=== PATIENT | male | born 1945 | race Caucasian/White ===

== ENCOUNTER 2018-10-17 15:07 | Emergency (ER) | payer MEDICARE, OTHER, SELFPAY ==
[2018-10-17 15:09] VITALS: BP 146/98; PULSE 84; RESP 16; TEMP 36.4; O2SAT 93; BMI 29.5
[2018-10-17] MEDS: predniSONE 20 MG Tablet 60 MG PO (15:31)
[2018-10-17] MEDS: Famotidine 20 MG Tablet 40 MG PO (15:31)
[2018-10-17 15:58] VITALS: BP 130/79; PULSE 75; RESP 16; O2SAT 95
--- NOTE | 2018-10-17 16:17 | ED.VISSUMM ---
- ER Visit Summary Date of Service: 10/17/18 Chief Complaint: [Allergic reaction to yellowjacket stings] History of Present Illness: The patient is a 72 M [presents to the emergency department after being stung about an hour and a half ago. Patient states that he was working in his yard he was pulling up some weeds and came across a yellow jacket nest. Patient states he was stung repeatedly on the right ear. Patient complaining of itching and a rash that developed. He denies any difficulty breathing. Denies any lip or tongue swelling. Patient has history of hypertension. Patient states that he took 4 Benadryl tablets at home.] Physical Examination: [HEENT-PERRLA, EOMI. Cranial nerves II through XII grossly intact. TMs clear. Mucous membranes moist. No adenopathy. She has diffuse erythema and edema of the right ear. No angioedema of the lips or tongue or oropharynx. Cardiovascular-regular rate and rhythm without murmur or ectopy Lungs-clear to auscultation, chest wall stable without crepitus or subcu emphysema Abdomen-normoactive bowel sounds, soft, nontender, no rebound or rigidity, no peritoneal signs. Skin exam-patient has small urticaria involving the back and upper extremities. Extremities-intact ?4, normal range of motion, normal pulses, atraumatic] Test Results: [None indicated] Emergency Department Course and Treatment: [She was given prednisone 80 mg p.o. as well as Pepcid 40 mg p.o. Patient will be observed for several hours. After 1 hour his urticaria is mostly resolved. Patient continues to feel well.] Treatment Plan: [Will be given prednisone for 3 days. Patient also will be dispensed on EpiPen. Patient advised to return if increased difficulty breathing, lip or tongue swelling, or conditions worsen anyway.] Disposition: [Discharged home stable condition] Impression: [Allergic reaction to yellowjacket stings] This note was generated with [employer] dictation software. It may contain incorrect words, spelling, and punctuation that were not noted in review of the chart prior to signing ED Disposition - Plan for ED Patient: Referrals: Petra Echeverria MD [Primary Care Provider] -
--- NOTE | 2018-10-17 16:19 | ED.DEP ---
ED Disposition - Plan for ED Patient: Instructions: ALLERGIC REACTION, Insect (General) Prescriptions: Prednisone [Deltasone] 20 mg PO BID #6 tab Prescription Printed Referrals: Petra Echeverria MD [Primary Care Provider] - As Needed
== END 2018-10-17 17:41 | disposition home or self-care (01) ==
LOC: ED 15:35
PROVIDERS: Emergency Provider Emergency Medicine; Family Provider Internal Medicine; PCP Internal Medicine
DX: T63.441A Toxic effect of venom of bees, accidental (unintentional), initial encounter (principal); Y92.9 Unspecified place or not applicable; I10 Essential (primary) hypertension
CPT/HCPCS: 99282

== ENCOUNTER → 2020-06-01 16:25 | Outpatient (CLI) | payer MEDICARE, OTHER, SELFPAY ==
[2020-06-01 17:05] LABS: Absolute Lymphocyte Count 1.09 X10^3/uL (0.83-4.51); Absolute Neutrophil Count 6.1 X10^3/uL (2.0-7.7); Basophil# 0.03 X10^3/uL; Basophil% 0.4 % (0-1); Eosinophil# 0.15 X10^3/uL; Eosinophils% 1.8 % (0-5); Hematocrit 45.7 % (40-54); Hemoglobin 14.2 g/dL (13.0-16.5); Lymphocyte # 1.09 X10^3/ul (4.0); Lymphocyte % 13.4 % (19-41); Mean Corp Hgb Conc 31.1 g/dL (32-36); Mean Corpuscular Hgb 27.2 pg (27.0-32.0); Mean Corpuscular Volume 87.5 fL (80-94); Mean Platelet Vol. 11.3 fl (6.2-12.0); Monocyte% 8.6 % (0-10); NRBC Flagged by Analyzer 0 % (0-5); Neutrophil # 6.08 X10^3/uL (2.7-7.7); Neutrophil % 74.7 % (47-70); Platelet Count 167 K/mm3 (150-450); RBC Distribution Width CV 14.1 % (11.6-14.6); Red Blood Count 5.22 M/mm3 (4.6-6.2); White Blood Count 8.1 K/mm3 (4.4-11.0)
[2020-06-01 18:00] LABS: ALB/GLOB Ratio 0.8 RATIO (0.9-2.4); AST(SGOT) 21 U/L (15-37); Alanine Aminotransfer ALT/SGPT 35 U/L (16-61); Albumin, Serum 3.4 g/dL (3.2-5.0); Alkaline Phosphatase 83 U/L (45-117); Anion Gap 5 (5-15); BUN 16 mg/dL (7-18); BUN/Creat Ratio 15.4 RATIO (10-20); Chloride 97 mmol/L (98-107); Creatinine, Serum 1.04 mg/dL (0.70-1.30); EST Glomerular Filtration Rate 74 mL/min (>60); Est Glom Filt Rate - Afr Amer 89 mL/min (>60); Glucose 140 mg/dL (74-106); Potassium 3.6 mmol/L (3.5-5.1); Protein, Total 7.4 g/dL (6.4-8.2); Sodium Level 139 mmol/L (136-145); Thyroid Stim Hormone (TSH) 1.24 uIU/mL (0.358-3.74)
[2020-06-02 09:36] LABS: Hepatitis C Antibody Non-Reactive (Nonreactive); Vitamin D,25 Hydroxy 19.5 ng/mL
== END ==
PROVIDERS: PCP Family Medicine Geriatric Medicine; Visit Provider Family Medicine Geriatric Medicine
DX: E55.9 Vitamin D deficiency, unspecified (principal); I10 Essential (primary) hypertension; Z13.89 Encounter for screening for other disorder
CPT/HCPCS: 36415; 80053; 82306; 84443; 85025; 86803

== ENCOUNTER → 2020-06-06 07:57 | Outpatient (CLI) | payer MEDICARE, OTHER, SELFPAY ==
--- NOTE | 2020-06-06 10:53 | PFTCOMP_ITS ---
COMPLETE PULMONARY FUNCTION TEST INTERPRETATION Brief HPI: Patient is a 74 year old male, currently under the care of Dr. Forrester, who presents to [facility] for complete pulmonary function tests secondary to diagnosis of dyspnea. Respiratory therapist reports good effort and reproducible results. Interpretation: Forced expiration spirometry shows a moderate large airways obstructive ventilatory defect with an FEV1 of 63% predicted. There is a significant bronchodilator response in FVC and FEV1 by strict ATS criteria. Spirograms are of good quality and plateau slowly, indicating slowly emptying areas of the lungs. The respiratory flow volume loop shows decreased expiratory flow rates at all lung volumes consistent with airway obstruction. Lung volumes by body plethysmography show an elevated total lung capacity at 8.18 L, 132% predicted. FRC and RV are elevated out of proportion. Lung volume measurements are consistent with hyperinflation and air-trapping. Diffusion capacity by carbon monoxide is preserved at 96% predicted. The airway resistance is elevated. No previous pulmonary function tests were available for review. Impression: Partial reversible moderate large airways obstructive ventilatory defect resulting in air trapping and hyperinflation, in a pattern consistent with COPD/asthma overlap syndrome.
== END ==
PROVIDERS: PCP Family Medicine Geriatric Medicine; Referring Provider Family Medicine Geriatric Medicine; Visit Provider Family Medicine Geriatric Medicine
DX: R06.02 Shortness of breath (principal)
CPT/HCPCS: 94060; 94726; 94729

== ENCOUNTER → 2020-06-08 12:47 | Outpatient (CLI) | payer MEDICARE, OTHER, SELFPAY ==
--- NOTE | 2020-06-08 12:49 | ECHOCS_ITS ---
Reason For Study: SOB Procedure This was a 2D Doppler, Color Flow transthoracic echocardiogram. The study was technically difficult. Due to COPD and body habitus. Contrast injection was performed. Exam performed in department. Left Ventricle Normal LV size. Left ventricular systolic function is normal. The estimated ejection fraction is 70 %. No evidence for diastolic dysfunction. No regional wall motion abnormalities noted. Right Ventricle Normal RV size. Normal systolic function. Atria Normal left atrium. Normal right atrium. No doppler evidence for ASD. Mitral Valve There is no mitral annular calcification. Normal mitral valve. Trivial mitral valve insufficiency. Tricuspid Valve Normal tricuspid valve. Trivial tricuspid valve insufficiency. Unable to estimate RV systolic pressure/pulmonary artery pressure due to technically difficult study. Aortic Valve The aortic valve is not well visualized. Pulmonic Valve The pulmonic valve is not well visualized. Great Vessels The aortic root is not well visualized. Pericardium/Pleural No pericardial effusion. Medication 22 gauge I.V. with prn adaptor inserted into right arm. Diluted definity 3.0ml given slow IV push to enhance endocardial definition. MMode/2D Measurements & Calculations LVIDd: 5.2 cm IVSd: 1.0 cm LAV(MOD-bp): 61.7 ml LVIDs: 3.4 cm LVPWd: 1.1 cm RVDd: 2.9 cm FS: 34.8 % LAV(MOD-bp) Indexed: 31.2 ml/m2 LAV(MOD-sp2): 60.7 ml LAV(MOD-sp4): 61.2 ml SV(MOD-sp4): 55.2 ml SV(sp4-el): 57.2 ml LVAd ap4: 29.0 cm2 EDV(MOD-sp4): 77.5 ml EDV(sp4-el): 79.9 ml LVAs ap4: 14.7 cm2 ESV(MOD-sp4): 22.3 ml ESV(sp4-el): 22.7 ml EF(MOD-sp4): 71.3 % EF(sp4-el): 71.6 % LA dimension(2D): 3.5 cm LA A4 area: 19.9 cm2 RA A4 area: 11.9 cm2 Time Measurements MV dec time: 0.20 sec Doppler Measurements & Calculations MV E max mg: 73.4 cm/sec Lat Peak E' Mg: 7.5 cm/sec Med Peak E' Mg: 7.6 cm/sec MV A max mg: 82.7 cm/sec E/E' lat: 9.8 E/E' med: 9.7 MV E/A: 0.89 Ao V2 max: 140.2 cm/sec LV V1 max: 106.4 cm/sec Ao max P.2 mmHg LV V1 max P.5 mmHg ECHO/Echo Complete W/ Contrast Interpretation Summary The study was technically difficult. Contrast injection was performed. Left ventricular systolic function is normal. The estimated ejection fraction is 70 %. Trivial mitral valve insufficiency. Trivial tricuspid valve insufficiency. Unable to estimate RV systolic pressure/pulmonary artery pressure due to techni deb difficult study. No evidence for diastolic dysfunction. Ordering Physician: Abundio Forrester Referring Physician: Abundio Forrester Chi Performed By: Yael Parnell, MECHE, RVT
== END ==
PROVIDERS: PCP Family Medicine Geriatric Medicine; Referring Provider Family Medicine Geriatric Medicine; Visit Provider Family Medicine Geriatric Medicine
DX: R06.02 Shortness of breath (principal)
CPT/HCPCS: 93306; Q9957; A4216; C8929

== ENCOUNTER → 2020-06-09 07:51 | Outpatient (CLI) | payer MEDICARE, OTHER, SELFPAY ==
--- NOTE | 2020-06-09 07:54 | CT_ITS ---
STUDY: LOW DOSE CT LUNG CANCER SCREENING REASON FOR EXAM: Male, 74 years old. TOBACCO USE. Patient smoked 1.5 pack per day for 15 years. RADIATION DOSAGE (If Supplied By Facility): CTDIvol = ( 3.18 ) mGy, DLP = ( 116.76 ) mGycm TECHNIQUE: No contrast was administered. Low dose technique was utilized (average mAS-38 and kVp 120). 1.25 mm axial source images with a slice interval of 1.25-mm were reconstructed in lung windows. 2.5 mm axial source images with a slice interval of 2.5-mm were reconstructed in lung windows. 5.0 mm axial source images with a slice interval of 5.0-mm were reconstructed in soft tissue windows. Nodule measured using lung windows on PACS and/or independent workstation with automated measurement of minimum and maximum diameter. Nodule measurement reported as average diameter rounded to the nearest whole number. Growth is defined as an increase ins size of greater than 1.5 mm. COMPARISON: None. NODULES: No suspicious nodular density is seen. Emphysema: Minimal increased markings in the medial aspect of the right middle lobe as well as the medial aspect of the lingular segment of the left upper lobe suggestive of mild scarring. Hyperinflation. Endobronchial lesion: None Aorta: Calcification of the aortic arch. Coronary arteries: Coronary artery calcification. Mediastinal nodes: Small benign appearing mediastinal lymph nodes. Other chest and abdominal findings: CT/Low Dose CT Lung Screening IMPRESSION: Lung-RADS category 2 - Continue annual screening with LDCT in 12 months. IMPORTANT NOTES FOR USE: ACR Lung-RADS Version 1.1 Assessment Categories Release Date: 2018 Category: Coded 0-4 bases on nodule(s) with highest degree of suspicion. Negative screen is defined as categories 1 and 2; a positive screen is defined as categories 3 and 4. Category 3 and 4A nodules that are unchanged on interval CT should be coded as category 2, and individuals returned to screening in 12 months. Category 4X: Category 3 or 4 nodules with additional imaging findings that increase the suspicion of lung cancer, such as spiculation, GGN that doubles in size in 1 year, enlarged lymph notes, etc. Category Modifiers: S (significant finding unrelated to lung cancer) Electronically Signed: Iván Bahena MD at 13:00 EDT , Service support ,
== END ==
PROVIDERS: PCP Family Medicine Geriatric Medicine; Referring Provider Family Medicine Geriatric Medicine; Visit Provider Family Medicine Geriatric Medicine
DX: F17.210 Nicotine dependence, cigarettes, uncomplicated (principal); Z12.2 Encounter for screening for malignant neoplasm of respiratory organs
CPT/HCPCS: 71271

== ENCOUNTER → 2020-06-20 08:00 | Outpatient (CLI) | payer MEDICARE, OTHER, SELFPAY ==
--- NOTE | 2020-06-20 08:02 | AAAS_ITS ---
Reason For Study: AAA without rupture Aorta Measurements Aorta Doppler Measurements Proximal aorta measures1.39 x 1.48cm. in cross- Peak systolic flow velocities within the proximal sectional axis. aorta measure 56.7 cm/sec. Proximal aorta measures1.42cm. in longitudinal Peak systolic flow velocities within the mid aorta axis. measure 72.7 cm/sec. Mid aorta measures1.58 x 1.9cm. in cross-sectionalPeak systolic flow velocities within the distal axis. aorta measure 72.7 cm/sec. Mid aorta measures1.69cm. in longitudinal axis. Distal aorta measures1.26 x 1.16cm. in cross- sectional axis. Distal aorta measures1.21cm. in longitudinal axis. Left Iliac Artery Left iliac artery measures .86 x .95 cm. in the cross-sectional axis. Left iliac artery measures .95 cm. in the longitudinal axis. Peak systolic velocity in the left iliac artery measures 88.0 cm/sec. Right Iliac Artery Right iliac artery measures .8 x .86 cm. in the cross-sectional axis. Right iliac artery measures .8 cm. in the longitudinal axis. Peak systolic velocity in the right iliac artery measures 123.6 cm/sec. Procedure Aorta IVC Iliac vasculature or bypass grafts [id number]. The exam was diagnostic. Exam performed in department. VL/AAA Screening Interpretation Summary The dimensions of the intra-abdominal aorta appear normal, without evidence of aneurysmal dilatation. The iliac arteries also appear normal in size bilaterally. The intr a-abdominal aorta and iliac arteries are patent, demonstrating normal, pulsatile arterial flow and no rmal peak systolic velocities. Ordering Physician: Abundio Forrester Performed By: Thomas Gurrola RVT and Student
== END ==
PROVIDERS: PCP Family Medicine Geriatric Medicine; Referring Provider Family Medicine Geriatric Medicine; Visit Provider Family Medicine Geriatric Medicine
DX: I71.4 Abdominal aortic aneurysm, without rupture (principal)
CPT/HCPCS: 76706

== ENCOUNTER → 2020-08-31 10:35 | Outpatient (CLI) | payer MEDICARE, OTHER, SELFPAY ==
[2020-08-31 12:39] LABS: Absolute Lymphocyte Count 1.63 X10^3/uL (0.83-4.51); Absolute Neutrophil Count 6.6 X10^3/uL (2.0-7.7); Basophil# 0.05 X10^3/uL; Basophil% 0.5 % (0-1); Eosinophil# 0.06 X10^3/uL; Eosinophils% 0.7 % (0-5); Hematocrit 47.4 % (40-54); Lymphocyte # 1.63 X10^3/ul (0.83-4.51); Lymphocyte % 17.8 % (19-41); Mean Corp Hgb Conc 31.6 g/dL (32-36); Mean Corpuscular Hgb 27.8 pg (27.0-32.0); Mean Corpuscular Volume 87.9 fL (80-94); Monocyte# 0.71 X10^3/uL; Monocyte% 7.8 % (0-10); NRBC Flagged by Analyzer 0 % (0-5); Neutrophil # 6.56 X10^3/uL (2.7-7.7); Neutrophil % 71.6 % (47-70); Platelet Count 175 K/mm3 (150-450); RBC Distribution Width SD 47.9 fl (35.1-43.9); Red Blood Count 5.39 M/mm3 (4.6-6.2); White Blood Count 9.2 K/mm3 (4.4-11.0)
[2020-08-31 13:09] LABS: ALB/GLOB Ratio 0.9 RATIO (0.9-2.4); AST(SGOT) 18 U/L (15-37); Alanine Aminotransfer ALT/SGPT 28 U/L (16-61); Albumin, Serum 3.5 g/dL (3.2-5.0); Alkaline Phosphatase 92 U/L (45-117); Anion Gap 6 (5-15); BUN 19 mg/dL (7-18); BUN/Creat Ratio 15.8 RATIO (10-20); Calcium,Total 9.4 mg/dL (8.5-10.1); Chloride 100 mmol/L (98-107); EST Glomerular Filtration Rate 63 mL/min (>60); Est Glom Filt Rate - Afr Amer 76 mL/min (>60); Glucose 108 mg/dL (74-106); Potassium 4.6 mmol/L (3.5-5.1); Protein, Total 7.5 g/dL (6.4-8.2); Sodium Level 135 mmol/L (136-145); Thyroid Stim Hormone (TSH) 1.94 uIU/mL (0.358-3.74)
== END ==
PROVIDERS: PCP Family Medicine Geriatric Medicine; Visit Provider Family Medicine Geriatric Medicine
DX: E55.9 Vitamin D deficiency, unspecified (principal); I10 Essential (primary) hypertension
CPT/HCPCS: 36415; 80053; 82306; 84443; 85025

== ENCOUNTER 2020-10-29 03:23 | Emergency (ER) | payer MEDICARE, OTHER, SELFPAY ==
[2020-10-29] VITALS (7 sets, daily range): BP systolic 84–156; BP diastolic 50–112; PULSE 68–112; RESP 12–22; TEMP 35.8; O2SAT 87–95; BMI 33.5
--- NOTE | 2020-10-29 03:43 | CT_ITS ---
STUDY: CT BRAIN WITHOUT CONTRAST REASON FOR EXAM: Male, 75 years old. Seizure RADIATION DOSAGE (If Supplied By Facility): CTDIvol = ( 44.99 ) mGy, DLP = ( 846.73 ) mGycm TECHNIQUE: Transaxial CT imaging of the brain was performed without administration of intravenous contrast material. Individualized dose optimization techniques were used for this CT. COMPARISON: 03/26/2015 FINDINGS: Normal soft tissue structures. Normal calvarium. Normal size ventricles and extra-axial spaces for the patient''s age. Normal white matter tracts of the cerebral hemispheres. Normal basal ganglia and thalami. Normal brainstem. Normal cerebellum. There is no intracranial hemorrhage. There are no findings of an acute ischemic infarction. Bilateral ocular lens replacements. Normal visualized paranasal sinuses. CT/Brain/Head without Contrast IMPRESSION: No intracranial acute abnormal finding. Electronically Signed: Rodrigo Guevara MD at 5:11 EDT Tel , Service support ,
--- NOTE | 2020-10-29 03:43 | EKG12_ITS ---
Test Reason : CONFUSION Blood Pressure : / mmHG Vent. Rate : 087 BPM Atrial Rate : 087 BPM P-R Int : 158 ms QRS Dur : 072 ms QT Int : 354 ms P-R-T Axes : 049 011 041 degrees QTc Int : 425 ms Normal sinus rhythm Normal ECG Confirmed by WIN GUAJARDO, CHANTEL ([id number]), features editor NARAYAN BARNEY ([id number]) on 11/03/2020 9:52:23 AM Referred By: WILY Confirmed By:RACHEL WALDEN MD
--- NOTE | 2020-10-29 03:45 | EX.ED.DYSGE1 ---
HPI History of Present Illness Chief Complaint: Confusion Informant: patient, spouse/S.O. and EMS Onset/Context/Timing Onset: Today (JPTA) Context: Sudden Onset (while sleeping) Timing: Intermittent (x1) and Lasts (1 min or less) Quality: poss seizure; stiffened up very hard and shook Location: all over Current Severity: Gone Maximum Severity: Severe Worsened by: n/a Relieved by: nothing Associated Symptoms Associated Symptoms: none currently Narrative Narrative: Patient has had significant dementia for the past year, in the middle of the night while sleeping next to his , he had a possible seizure. She states she woke up to him stiffening up and shaking all over. Lasted for less than a minute, afterwards he was snoring hard and unable to be awakened at all until at some point in the ambulance when he woke up on the way here. No history of any seizures. No recent medication changes. Patient denies any symptoms, is very confused at baseline according to the , and does not want to cooperate with healthcare providers. denies any recent illness or suspicious appearing symptoms. He does have COPD and is not on oxygen at home. According to EMS providers, he was 82% on room air at home when they picked him up. [facility] Medical History (Updated 10/29/20 @ 05:[address] Ramakrishna Iraheta MD) Alzheimer's dementia COPD (chronic obstructive pulmonary disease) Hyperlipidemia Hypertension, uncontrolled Hypertensive encephalopathy Nicotine dependence Home Medications aspirin 81 mg PO DAILY@0800 03/25/15 [History Last Taken 03/25/15] epinephrine 0.3 mg IM PRN PRN 03/25/15 [History Last Taken Unknown] kglmeiqx-kil-pffn fum-folic ac 1 ea PO DAILY 03/25/15 [History Last Taken 03/26/15] pravastatin 40 mg PO DAILY 03/25/15 [History Last Taken 03/25/15] amlodipine 10 mg PO DAILY #30 tablet 03/27/15 [Rx Last Taken Unknown] carvedilol 25 mg PO BID #60 tablet 03/27/15 [Rx Last Taken Unknown] albuterol sulfate 2 puff INHALATION Q4H 10/29/20 [History Last Taken Unknown] azithromycin 250 mg PO DAILY #4 tablet 10/29/20 [Rx Last Taken Unknown] doxepin 10 mg PO DAILY 10/29/20 [History Last Taken Unknown] jcxfufasqzz-voqqmdlod-nprcmgjt [Trelegy Ellipta] 1 inh INHALATION DAILY 10/29/20 [History Last Taken Unknown] memantine 10 mg PO BID 10/29/20 [History Last Taken Unknown] prednisone 40 mg PO DAILY #8 tablet 10/29/20 [Rx Last Taken Unknown] valsartan-hydrochlorothiazide 1 tab PO DAILY 10/29/20 [History Last Taken Unknown] Allergy/AdvReac Type Severity Reaction Status Date / Time venom-honey bee Allergy Anaphylaxis Verified 10/17/18 15:08 [bee venom (honey bee)] Social History Smoking Status: Current every day smoker tobacco type: cigarettes ROS ROS ED Review of Systems ROS Unobtainable: due to mental status and other Details: uncooperative EXAM Physical Exam Const Vital Signs: 10/29/20 03:24 10/29/20 03:43 10/29/20 04:24 Temperature 96.5 F L 96.5 F L Temperature Source Temporal Temporal Pulse Rate 112 H 95 74 Respiratory Rate 20 H 21 H 12 Respiratory Pattern Blood Pressure 156/112 H Blood Pressure Mean 126 Pulse Ox 91 91 88 Oxygen Delivery Method Room Air Room Air Room Air 10/29/20 05:00 10/29/20 05:36 10/29/20 06:49 Temperature Temperature Source Pulse Rate 68 74 71 Respiratory Rate 15 18 15 Respiratory Pattern Normal Blood Pressure 84/52 L 103/63 Blood Pressure Mean 62 76 Pulse Ox 88 94 Oxygen Delivery Method Room Air Room Air Positive well nourished, well developed and obese General Appearance ED: well developed and NAD Nutritional Appearance: obese HEENT Reports moist mucous membranes normocephalic and atraumatic Eyes PERRL and EOMs intact bilaterally Neck full ROM and supple Resp normal respiratory effort and clear to auscultation bilaterally Resp Narrative: Diminished throughout, symmetrically Cardio regular rate, regular rhythm and no murmurs Rate: Negative for tachycardic GI non-tender and non-distended Auscultation: normoactive bowel sounds Palpation: soft Back/Spine no CVA tenderness General Back: other FROM Extremity normal to inspection General Extremety ED: Negative for edema, pulses abnormal or tenderness General Extremity: Negative for edema or pulses abnormal Neuro CN's II-XII intact bilaterally and no sensory deficits noted Neuro Narrative: Confused and agitated. Sitting on the side of the bed with his legs through the rail, refuses to change position, refuses to accept oxygen. Demands that soft restraints be removed and everything else from his arms. Sensorium / Orientation: awake, alert, oriented to person and other Oriented to place with regards to the fact he is in a hospital ; Negative for oriented to time Motor Exam: strength 5/5 throughout Skin no rashes or lesions noted and no wounds MDM MDM MDM Narrative Medical decision making narrative: With the at the bedside, we were able to get the patient to calm down and cooperate more, but he still refused to wear oxygen here in the hospital, and he is adamant about refusing to be admitted for his hypoxemia. His x-ray shows the possibility of a left lower lobe infiltrate that I started treating with azithromycin. He was given orally, the patient would not allow an IV to be placed, and we were trying to find a balance between caring for the patient and keeping him from getting so agitated as to injure the staff and interfere with his care. is in agreement that trying to admit him will not go well, he is a large man and has already been swinging at all of the staff trying to hurt them, and I certainly agree that admitting him will not help his agitated dementia. is willing to take him home, understanding the risks of being hypoxic, which actually is intermittent here. Oftentimes he is in the low 90s. But he does not like he had a true seizure at home, and this was likely due to hypoxemia. At one point we were able to get some blood pressures on him, they were in the high 80s with maps around 69, however now he is 120/70s. He has been breathing well. His oxygen saturations right now are 92%. I discussed with both the and Dr. Forrester, we all agree that it would probably be best to send him home with her, she is going to try to borrow an oxygen concentrator from a friend to use for the rest of the day, and the patient says he would be amenable to seeing Dr. Forrester in the office, he has an appointment now at 9 AM tomorrow on Friday. I will give him some prednisone as well, although he really is not having symptoms consistent with a major COPD exacerbation, but it may help his oxygenation. I would just write him for a 4-day extra burst starting tomorrow, in addition to the rest of the Z-Alejandro. Lab Data Attestation: I reviewed the patient's lab results. Labs: Laboratory Results - last 24 hr 10/29/20 10/29/20 04:08 04:08 WBC 13.1 H RBC 5.01 Hgb 14.4 Hct 45.4 MCV 90.6 MCH 28.7 MCHC 31.7 L RDW Std Deviation 48.3 H RDW Coeff of Mike 14.5 Plt Count 227 MPV 11.5 Immature Gran % (Auto) 2.400 H Neut % (Auto) 89.9 H Lymph % (Auto) 4.7 L Haakon % (Auto) 2.4 Eos % (Auto) 0.2 Baso % (Auto) 0.4 Absolute Neuts (auto) 11.8 H Absolute Lymphs (auto) 0.61 L Nucleated RBC % 0 Sodium 133 L Potassium 4.2 Chloride 96 L Carbon Dioxide 23.0 Anion Gap 14 BUN 14 Creatinine 1.57 H Estim Creat Clear Calc 41.33 Est GFR (MDRD) Af Amer 56 L Est GFR (MDRD) Non-Af 46 L BUN/Creatinine Ratio 8.9 L Glucose 234 H Calcium 8.7 Troponin I High Sens 57 Radiography Chest X-Ray - ED: 1 View, Read by ED Physician and Left Infiltrate Diagnostic Testing: Radiology Impression Brain CT 10/29/20 03:43 IMPRESSION: No intracranial acute abnormal finding. Electronically Signed: Rodrigo Guevara MD at 5:11 EDT Tel , Service support , Chest X-Ray 10/29/20 04:41 IMPRESSION: Left lower lung patchy opacity, pneumonia versus atelectasis. Right lower lung subsegmental atelectasis. Electronically Signed: Rodrigo Guevara MD at 5:17 EDT Tel , Service support , EKG Initial EKG: Attestation: I personally reviewed and interpreted this EKG as follows: Interpretation: Sinus Rhythm and No Acute Injury Pattern Comments: normal EKG Discharge Plan Triage Chief Complaint: Confusion ED Provider: Ramakrishna Iraheta Dx/Rx/DC Orders Clinical Impression: Hypoxemia, Pneumonia, COPD (chronic obstructive pulmonary disease), Dementia Instructions: ED Pneumonia (Adult) Prescriptions: New azithromycin [azithromycin] 250 MG tablet 250 mg PO DAILY Qty: 4 RF: 0 prednisone 20 MG tablet 40 mg PO DAILY Qty: 8 RF: 0 No Action pravastatin 40 MG tablet 40 mg PO DAILY RF: 0 aspirin 81 MG tablet,chewable 81 mg PO DAILY@0800 RF: 0 epinephrine 0.3 MG syringe 0.3 mg IM PRN PRN (Reason: Anaphylaxis) RF: 0 zxoireyx-uxj-bsuy fum-folic ac 1 EACH tablet 1 ea PO DAILY RF: 0 carvedilol 25 MG tablet 25 mg PO BID Qty: 60 RF: 0 amlodipine 10 MG tablet 10 mg PO DAILY Qty: 30 RF: 0 memantine 5 mg Tablet 10 mg PO BID RF: 0 doxepin 10 mg Capsule 10 mg PO DAILY RF: 0 valsartan-hydrochlorothiazide 320-25 mg Tablet 1 tab PO DAILY RF: 0 Trelegy Ellipta 200-62.5-25 mcg Blister With Device 1 inh INHALATION DAILY RF: 0 albuterol sulfate 90 mcg/actuation Hfa Aerosol Inhaler 2 puff INHALATION Q4H RF: 0 Primary Care Provider: Abundio Forrester Chi Referrals: Abundio Forrester Chi, MD [Primary Care Provider] - 10/30/20 9:00 am Disposition Disposition: Home, Self Care
[2020-10-29 04:28] LABS: Absolute Lymphocyte Count 0.61 X10^3/uL (0.83-4.51); Absolute Neutrophil Count 11.8 X10^3/uL (2.0-7.7); Basophil# 0.05 X10^3/uL; Basophil% 0.4 % (0-1); Eosinophil# 0.03 X10^3/uL; Eosinophils% 0.2 % (0-5); Hematocrit 45.4 % (40-54); Hemoglobin 14.4 g/dL (13.0-16.5); Lymphocyte # 0.61 X10^3/ul (0.83-4.51); Lymphocyte % 4.7 % (19-41); Mean Corp Hgb Conc 31.7 g/dL (32-36); Mean Corpuscular Hgb 28.7 pg (27.0-32.0); Mean Corpuscular Volume 90.6 fL (80-94); Mean Platelet Vol. 11.5 fl (6.2-12.0); Monocyte# 0.32 X10^3/uL; Monocyte% 2.4 % (0-10); NRBC Flagged by Analyzer 0 % (0-5); Neutrophil # 11.77 X10^3/uL (2.7-7.7); Neutrophil % 89.9 % (47-70); Platelet Count 227 K/mm3 (150-450); RBC Distribution Width CV 14.5 % (11.6-14.6); RBC Distribution Width SD 48.3 fl (35.1-43.9); Red Blood Count 5.01 M/mm3 (4.6-6.2); White Blood Count 13.1 K/mm3 (4.4-11.0)
--- NOTE | 2020-10-29 04:41 | RAD_ITS ---
STUDY: X-RAY CHEST REASON FOR EXAM: Male, 75 years old. sob TECHNIQUE: Portable, upright, AP chest radiograph COMPARISON: 03/25/2015 FINDINGS: Right lower lung streaky opacities. Left lower lung patchy opacity. There is no demonstrated pleural abnormality. Normal size heart. Normal mediastinum and caryn. Normal visualized pulmonary arteries. Normal visualized aortic arch and descending thoracic aorta. Normal visualized thoracic spine. There is degenerative osteoarthritis of the bilateral shoulders. There is no demonstrated abnormality of the visualized soft tissue structures of the upper abdomen. RAD/Chest 1 View (Portable) IMPRESSION: Left lower lung patchy opacity, pneumonia versus atelectasis. Right lower lung subsegmental atelectasis. Electronically Signed: Rodrigo Guevara MD at 5:17 EDT Tel , Service support ,
[2020-10-29 04:54] LABS: Anion Gap 14 (5-15); BUN 14 mg/dL (7-18); BUN/Creat Ratio 8.9 RATIO (10-20); Calcium,Total 8.7 mg/dL (8.5-10.1); Chloride 96 mmol/L (98-107); Creatinine, Serum 1.57 mg/dL (0.70-1.30); EST Glomerular Filtration Rate 46 mL/min (>60); Est Glom Filt Rate - Afr Amer 56 mL/min (>60); Estimated Creatinine Clearance 41.33 ml/min; Glucose 234 mg/dL (74-106); Potassium 4.2 mmol/L (3.5-5.1); Sodium Level 133 mmol/L (136-145); Troponin-I HS 57 pg/mL (3.0-78.0)
[2020-10-29] MEDS: Ipratropium/Albuterol Sulfate 3 ML AMPUL.NEB INHALATION (05:29)
[2020-10-29] MEDS: Azithromycin 250 MG Tablet 500 MG PO (05:42)
--- NOTE | 2020-10-29 06:22 | ED.RN ---
PT REFUSING TO WEAR OXYGEN. PT REFUSING STRAIGHT CATH FOR URINE SAMPLE. PT REPORTS HE IS FINE & WANTS TO GO HOME
[2020-10-29] MEDS: predniSONE 20 MG Tablet 40 MG PO (07:30)
== END 2020-10-29 07:34 | disposition home or self-care (01) ==
PROVIDERS: Emergency Provider Emergency Medicine; PCP Family Medicine Geriatric Medicine
DX: R09.02 Hypoxemia (principal); J18.9 Pneumonia, unspecified organism; J44.0 Chronic obstructive pulmonary disease with (acute) lower respiratory infection; F02.80 Dementia in other diseases classified elsewhere, unspecified severity, without behavioral disturbance, psychotic disturbance, mood disturbance, and anxiety; G30.9 Alzheimer's disease, unspecified; F17.210 Nicotine dependence, cigarettes, uncomplicated; E66.9 Obesity, unspecified; E78.5 Hyperlipidemia, unspecified; I10 Essential (primary) hypertension; Z79.52 Long term (current) use of systemic steroids; Z79.82 Long term (current) use of aspirin; Z79.899 Other long term (current) drug therapy
CPT/HCPCS: 70450; 71045; 80048; 84484; 85025; 93005; 94640; 99285

== ENCOUNTER → 2020-11-20 09:26 | Outpatient (CLI) | payer MEDICARE, OTHER, SELFPAY ==
[2020-11-20 10:12] LABS: Absolute Lymphocyte Count 1.43 X10^3/uL (0.83-4.51); Absolute Neutrophil Count 6.1 X10^3/uL (2.0-7.7); Basophil# 0.04 X10^3/uL; Basophil% 0.5 % (0-1); Eosinophil# 0.12 X10^3/uL; Eosinophils% 1.4 % (0-5); Hematocrit 43.8 % (40-54); Hemoglobin 14.3 g/dL (13.0-16.5); Lymphocyte # 1.43 X10^3/ul (0.83-4.51); Lymphocyte % 16.6 % (19-41); Mean Corp Hgb Conc 32.6 g/dL (32-36); Mean Corpuscular Hgb 29.4 pg (27.0-32.0); Mean Corpuscular Volume 90.1 fL (80-94); Mean Platelet Vol. 11.3 fl (6.2-12.0); Monocyte# 0.76 X10^3/uL; Monocyte% 8.8 % (0-10); NRBC Flagged by Analyzer 0 % (0-5); Neutrophil # 6.11 X10^3/uL (2.7-7.7); Neutrophil % 71.2 % (47-70); Platelet Count 181 K/mm3 (150-450); RBC Distribution Width CV 14.4 % (11.6-14.6); RBC Distribution Width SD 46.5 fl (35.1-43.9); Red Blood Count 4.86 M/mm3 (4.6-6.2); White Blood Count 8.6 K/mm3 (4.4-11.0)
[2020-11-20 10:45] LABS: Vitamin D,25 Hydroxy 23.6 ng/mL
[2020-11-20 10:55] LABS: ALB/GLOB Ratio 0.8 RATIO (0.9-2.4); AST(SGOT) 14 U/L (15-37); Alanine Aminotransfer ALT/SGPT 24 U/L (16-61); Albumin, Serum 3.1 g/dL (3.2-5.0); Alkaline Phosphatase 97 U/L (45-117); Anion Gap 8 (5-15); BUN 19 mg/dL (7-18); BUN/Creat Ratio 15.2 RATIO (10-20); Calcium,Total 8.7 mg/dL (8.5-10.1); Chloride 100 mmol/L (98-107); Creatinine, Serum 1.25 mg/dL (0.70-1.30); EST Glomerular Filtration Rate 60 mL/min (>60); Est Glom Filt Rate - Afr Amer 72 mL/min (>60); Globulin 3.8 g/dL (2.2-4.2); Glucose 116 mg/dL (74-106); Potassium 4.2 mmol/L (3.5-5.1); Protein, Total 6.9 g/dL (6.4-8.2); Sodium Level 136 mmol/L (136-145); Thyroid Stim Hormone (TSH) 1.19 uIU/mL (0.358-3.74)
== END ==
LOC: LAB 09:28
PROVIDERS: PCP Family Medicine Geriatric Medicine; Referring Provider Family Medicine Geriatric Medicine; Visit Provider Family Medicine Geriatric Medicine
DX: E55.9 Vitamin D deficiency, unspecified (principal); I10 Essential (primary) hypertension
CPT/HCPCS: 36415; 80053; 82306; 84443; 85025

== ENCOUNTER → 2021-01-05 11:18 | Outpatient (CLI) | payer MEDICARE, OTHER, SELFPAY ==
--- NOTE | 2021-01-05 11:34 | RAD_ITS ---
STUDY: X-RAY CHEST REASON FOR EXAM: Male, 75 years old. SOB TECHNIQUE: Frontal portable view of the chest COMPARISON: 09 June 2020 FINDINGS: Lungs are hyperinflated without focal opacities. There are coarsened bilateral basal interstitial markings related to scarring and emphysema. There is no pneumothorax, pulmonary edema or cardiomegaly. Appearance is stable since prior. RAD/Chest PA and Lateral IMPRESSION: Emphysema. No acute disease. Electronically Signed: Sebas Lovell MD at 16:58 EDT Tel , Service support ,
[2021-01-05 13:01] LABS: Absolute Lymphocyte Count 1.39 X10^3/uL (0.83-4.51); Basophil# 0.02 X10^3/uL; Basophil% 0.2 % (0-1); Eosinophil# 0.09 X10^3/uL; Eosinophils% 1.1 % (0-5); Hematocrit 47.8 % (40-54); Hemoglobin 15.5 g/dL (13.0-16.5); Lymphocyte # 1.39 X10^3/ul (0.83-4.51); Lymphocyte % 16.6 % (19-41); Mean Corp Hgb Conc 32.4 g/dL (32-36); Mean Corpuscular Hgb 28.8 pg (27.0-32.0); Mean Corpuscular Volume 88.7 fL (80-94); Mean Platelet Vol. 12.2 fl (6.2-12.0); Monocyte% 9.5 % (0-10); NRBC Flagged by Analyzer 0 % (0-5); Neutrophil % 71.6 % (47-70); Platelet Count 157 K/mm3 (150-450); RBC Distribution Width CV 13.8 % (11.6-14.6); RBC Distribution Width SD 44.4 fl (35.1-43.9); Red Blood Count 5.39 M/mm3 (4.6-6.2); White Blood Count 8.4 K/mm3 (4.4-11.0)
[2021-01-05 13:20] LABS: ALB/GLOB Ratio 0.8 RATIO (0.9-2.4); AST(SGOT) 17 U/L (15-37); Alanine Aminotransfer ALT/SGPT 26 U/L (16-61); Albumin, Serum 3.3 g/dL (3.2-5.0); Alkaline Phosphatase 111 U/L (45-117); Anion Gap 6 (5-15); BUN 13 mg/dL (7-18); BUN/Creat Ratio 11.9 RATIO (10-20); Calcium,Total 9.5 mg/dL (8.5-10.1); Chloride 98 mmol/L (98-107); Creatinine, Serum 1.09 mg/dL (0.70-1.30); EST Glomerular Filtration Rate 70 mL/min (>60); Est Glom Filt Rate - Afr Amer 85 mL/min (>60); Globulin 4.1 g/dL (2.2-4.2); Glucose 104 mg/dL (74-106); Potassium 4.3 mmol/L (3.5-5.1); Protein, Total 7.4 g/dL (6.4-8.2); Sodium Level 135 mmol/L (136-145); Thyroid Stim Hormone (TSH) 0.98 uIU/mL (0.358-3.74)
== END ==
PROVIDERS: PCP Family Medicine Geriatric Medicine; Referring Provider Family Medicine Geriatric Medicine; Visit Provider Family Medicine Geriatric Medicine
DX: R53.83 Other fatigue (principal); R06.02 Shortness of breath
CPT/HCPCS: 36415; 71046; 80053; 84443; 85025

== ENCOUNTER → 2021-02-20 10:43 | Outpatient (CLI) | payer MEDICARE, OTHER, SELFPAY ==
[2021-02-20 12:23] LABS: Absolute Lymphocyte Count 1.39 X10^3/uL (0.83-4.51); Absolute Neutrophil Count 7.2 X10^3/uL (2.0-7.7); Basophil# 0.03 X10^3/uL; Basophil% 0.3 % (0-1); Hematocrit 47.1 % (40-54); Hemoglobin 15.2 g/dL (13.0-16.5); Lymphocyte # 1.39 X10^3/ul (0.83-4.51); Lymphocyte % 14.1 % (19-41); Mean Corp Hgb Conc 32.3 g/dL (32-36); Mean Corpuscular Hgb 28.4 pg (27.0-32.0); Mean Platelet Vol. 11.6 fl (6.2-12.0); Monocyte# 1.04 X10^3/uL; Monocyte% 10.6 % (0-10); NRBC Flagged by Analyzer 0 % (0-5); Neutrophil % 73.1 % (47-70); Platelet Count 150 K/mm3 (150-450); RBC Distribution Width CV 13.9 % (11.6-14.6); RBC Distribution Width SD 44.3 fl (35.1-43.9); Red Blood Count 5.35 M/mm3 (4.6-6.2); White Blood Count 9.9 K/mm3 (4.4-11.0)
[2021-02-20 12:34] LABS: Vitamin D,25 Hydroxy 27.4 ng/mL
[2021-02-20 12:53] LABS: ALB/GLOB Ratio 0.8 RATIO (0.9-2.4); AST(SGOT) 14 U/L (15-37); Alanine Aminotransfer ALT/SGPT 24 U/L (16-61); Albumin, Serum 3.4 g/dL (3.2-5.0); Alkaline Phosphatase 122 U/L (45-117); Anion Gap 4 (5-15); BUN 12 mg/dL (7-18); BUN/Creat Ratio 11.8 RATIO (10-20); Calcium,Total 9.5 mg/dL (8.5-10.1); Chloride 100 mmol/L (98-107); Creatinine, Serum 1.02 mg/dL (0.70-1.30); EST Glomerular Filtration Rate 75 mL/min (>60); Est Glom Filt Rate - Afr Amer 91 mL/min (>60); Glucose 103 mg/dL (74-106); Potassium 4.1 mmol/L (3.5-5.1); Protein, Total 7.4 g/dL (6.4-8.2); Sodium Level 137 mmol/L (136-145); Thyroid Stim Hormone (TSH) 1.71 uIU/mL (0.358-3.74)
== END ==
PROVIDERS: PCP Family Medicine Geriatric Medicine; Visit Provider Family Medicine Geriatric Medicine
DX: E55.9 Vitamin D deficiency, unspecified (principal); I10 Essential (primary) hypertension
CPT/HCPCS: 36415; 80053; 82306; 84443; 85025

== ENCOUNTER 2021-03-02 15:12 | Emergency (ER) | payer MEDICARE, OTHER, SELFPAY ==
[2021-03-02] VITALS (7 sets, daily range): BP systolic 170–196; BP diastolic 91–101; PULSE 68–88; RESP 18–28; TEMP 36.1; O2SAT 89–97; BMI 32.8
--- NOTE | 2021-03-02 15:43 | EKG12_ITS ---
Test Reason : Blood Pressure : / mmHG Vent. Rate : 070 BPM Atrial Rate : 070 BPM P-R Int : 158 ms QRS Dur : 072 ms QT Int : 376 ms P-R-T Axes : 069 035 072 degrees QTc Int : 406 ms Normal sinus rhythm Normal ECG Confirmed by JOSE HARRIS MD ([id number]), film or videotape editor NARAYAN BARNEY ([id number]) on 03/06/2021 9:39:29 AM Referred By: MELINDA Confirmed By:JOSE HARRIS MD
--- NOTE | 2021-03-02 15:45 | EDS_ITS ---
HPI History of Present Illness Chief Complaint: Shortness of Breath Informant: patient and spouse/S.O. Onset/Context/Timing Onset: Today Context: gradual Timing: Continuous Current Severity: Mild Maximum Severity: Mild Worsened by: Exertion and Lying flat; Not Worsened By Coughing Relieved by: Oxygen Associated Symptoms Negative for cough, fever, sore throat, subjective or chills Chest Pain: Positive for None; Negative for Continuous, Intermittent, Sharp, Stabbing, Dull, Pleuritic, Pressure and Tightness Narrative Narrative: 75-year-old male history of mild dementia, COPD and asthma and hypertension. He is not on any home oxygen. Today does feel short of breath. Worse supine and with exertion. No associated chest pain. He has never had a DVT or PE. No history of CHF and no leg pain or swelling. Denies any fever or chills. No new cough. No hemoptysis. No PE or DVT risk factors. No leg pain or swelling. Patient and his both have been vaccinated against Covid. PE Risk Factors: Negative for Cancer, OCP + Smoking + > 35, Prior DVT or PE, R ecent immobilization, Recent surgery and Recent travel Prior similar symptoms: No Recent Illness/Hospitalization: No PFSH PFSH Medical History Alzheimer's dementia COPD (chronic obstructive pulmonary disease) Hyperlipidemia Hypertension, uncontrolled Hypertensive encephalopathy Nicotine dependence Home Medications aspirin 81 mg PO DAILY@0800 03/25/15 [History Last Taken 03/25/15] epinephrine 0.3 mg IM PRN PRN 03/25/15 [History Last Taken Unknown] jelvguie-fxn-htbp fum-folic ac 1 ea PO DAILY 03/25/15 [History Last Taken 03/26/15] pravastatin 40 mg PO DAILY 03/25/15 [History Last Taken 03/25/15] amlodipine 10 mg PO DAILY #30 tablet 03/27/15 [Rx Last Taken Unknown] carvedilol 25 mg PO BID #60 tablet 03/27/15 [Rx Last Taken Unknown] albuterol sulfate 2 puff INHALATION Q4H 10/29/20 [History Last Taken Unknown] azithromycin 250 mg PO DAILY #4 tablet 10/29/20 [Rx Last Taken Unknown] doxepin 10 mg PO DAILY 10/29/20 [History Last Taken Unknown] prwwbmzwmfg-ogwzxnoib-ykwifsnt [Trelegy Ellipta] 1 inh INHALATION DAILY 10/29/20 [History Last Taken Unknown] memantine 10 mg PO BID 10/29/20 [History Last Taken Unknown] prednisone 40 mg PO DAILY #8 tablet 10/29/20 [Rx Last Taken Unknown] valsartan-hydrochlorothiazide 1 tab PO DAILY 10/29/20 [History Last Taken Unknown] prednisone 40 mg PO DAILY 7 Days #14 tab 03/02/21 [Rx Last Taken Unknown] Allergy/AdvReac Type Severity Reaction Status Date / Time venom-honey bee Allergy Anaphylaxis Verified 03/02/21 15:16 [bee venom (honey bee)] Social History Smoking Status: Current every day smoker tobacco type: cigarettes ROS ROS ED ROS Narrative Shortness of breath. Review of Systems ROS Unobtainable: Denies due to encephalopathy Constitutional Constitutional ED: Denies chills or fever(s) Eyes Eyes: Denies change in vision ENT ENT ED: Denies ear pain or sore throat Cardiovascular Cardiovascular: Denies chest pain, palpitations or racing heartbeat Respiratory/Chest Respiratory/Chest: Denies cough or dyspnea Gastrointestinal Gastrointestinal: Denies abdominal pain, diarrhea, nausea or vomiting Genitourinary Genitourinary ED: Denies dysuria Musculoskeletal Musculoskeletal: Denies myalgias Integumentary Denies rash Neurologic Neurologic: Denies headache(s) Psychiatric Psychiatric: Denies depression Endocrine Endocrinology: Denies polyuria Hematologic/Lymphatic Hematologic/Lymphatic: Denies easy bruising Allergic/Immunologic Allergic/Immunologic ED: Denies urticaria EXAM Physical Exam Narrative Exam Narrative: 35-year-old male no acute distress and vital signs are stable except his pulse ox is 85 to 89% when he walked in on room air. He is normally not on oxygen. On O2 is 97% on 2 L. H EENT exam unremarkable. Neck nontender no JVD no lymphadenopathy. Lungs clear to auscultation bilaterally. Heart regular rhythm rate about 70 no murmur. Chest were nontender. Abdomen soft nontender. Moving all 4 extremities. Calves are nontender without edema nor cords. Neurologically is awake and alert with no focal motor deficits. Const Vital Signs: 03/02/21 15:12 03/02/21 15:39 03/02/21 15:41 Temperature 96.9 F L Temperature Source Temporal Pulse Rate 76 68 Respiratory Rate 28 H 18 Respiratory Effort Normal Respiratory Pattern Blood Pressure 196/91 H 170/101 H Blood Pressure Mean 126 124 Pulse Ox 89 97 Oxygen Delivery Method Room Air Nasal Cannula Nasal Cannula Oxygen Flow Rate (L/min) 2 2 03/02/21 15:55 03/02/21 16:10 Temperature Temperature Source Pulse Rate 88 Respiratory Rate 20 H Respiratory Effort Respiratory Pattern Normal Blood Pressure Blood Pressure Mean Pulse Ox 97 Oxygen Delivery Method Nasal Cannula Oxygen Flow Rate (L/min) 2 Positive well nourished, well developed and obese; Negative for cachectic, contractures or unkempt General Appearance ED: well developed and NAD; Negative for unkempt, cachectic, contractures or pallor Nutritional Appearance: obese; Negative for cachectic HEENT Reports moist mucous membranes atraumatic; Negative for trauma or tenderness Eyes PERRL and EOMs intact bilaterally Neck no lymphadenopathy, supple, no meningeal signs and no JVD General: Negative for tenderness Resp normal respiratory effort and clear to auscultation bilaterally Auscultation: Negative for rales, rhonchi or wheezes Cardio regular rate, regular rhythm, S1 normal heart sound, S2 normal heart sound and no murmurs GI non-tender, non-distended and no masses Auscultation: normoactive bowel sounds Palpation: soft; Negative for tender, guarding or rebound tenderness present Back/Spine no CVA tenderness and normal to inspection General Back: Negative for CVA tenderness Extremity normal to inspection General Extremety ED: Negative for edema or tenderness General Extremity: Negative for edema Neuro oriented x3 Sensorium / Orientation: alert, oriented to person, oriented to place and oriented to time; Negative for orientation impaired, confused, lethargic or stuporous Motor Exam: strength 5/5 throughout Psych mental status grossly normal Appearance: Negative for unkempt Mood & Affect: Negative for depressed or tearful Thought Process: normal thought process Skin no wounds and No skin turgor normal General Skin Exam: Negative for jaundice or pallor Lesions: no lesions Rashes: no rashes MDM MDM MDM Narrative Medical decision making narrative: 75-year-old male with shortness of breath. Exam is benign. He has never had a DVT or PE. He has no risk factors for it. He does have COPD but he is not really significantly wheezing a lot. Pneumonia is a consideration but he has no cough or fever. Ingestive heart failure is a consideration but has had no physical findings consistent with that no underlying cardiac disease that he knows of. He will undergo work-up for dyspnea and hypoxia. He will also receive DuoNeb and albuterol aerosols along with IV Solu-Medrol. Repeat exam patient is doing well at 4:55 PM. Nurses are going to ambulate the patient and see how he does off oxygen. Patient did well did not have any significant desaturation be discharged home on prednisone. Lab Data Attestation: I reviewed the patient's lab results. Lab results narrative: CBC shows a white count 9. Hemoglobin 14. Platelets 184. Electrolytes unremarkable gap of 8 normal BUN creatinine. Troponin X. B [employer] 68. Labs: Laboratory Results - last 24 hr 03/02/21 03/02/21 03/02/21 16:00 16:00 16:00 WBC 9.8 RBC 5.37 Hgb 14.8 Hct 46.5 MCV 86.6 MCH 27.6 MCHC 31.8 L RDW Std Deviation 42.5 RDW Coeff of Mike 13.5 Plt Count 184 MPV 10.8 Immature Gran % (Auto) 1.500 H Neut % (Auto) 76.3 H Lymph % (Auto) 13.6 L [place] % (Auto) 7.3 Eos % (Auto) 0.9 Baso % (Auto) 0.4 Absolute Neuts (auto) 7.5 Absolute Lymphs (auto) 1.34 Nucleated RBC % 0 Sodium 140 Potassium 4.1 Chloride 101 Carbon Dioxide 31.0 Anion Gap 8 BUN 12 Creatinine 0.94 Estim Creat Clear Calc 66.86 Est GFR (MDRD) Af Amer 100 Est GFR (MDRD) Non-Af 83 BUN/Creatinine Ratio 12.8 Glucose 116 H Calcium 8.9 Troponin I High Sens 10 B-Natriuretic Peptide 68.6 Radiography Chest X-Ray - ED: 1 View, Read by ED Physician, Heart, Lungs, Mediastinum, Bony Structures, No Acute Disease and Chronic Changes Diagnostic Testing: Clinical Impression(s) from Imaging Studies Chest X-Ray 03/02/21 16:35 IMPRESSION: Mildly hyperexpanded lungs without a superimposed acute pulmonary process Electronically Signed: Jesus Betts MD at 17:08 EST , Service support , Chest x-ray shows chronic changes with platelike atelectasis in the right base. I do not see obvious pneumonia or infiltrate. No signs of Covid pneumonitis. Single view portable film interpreted by myself. Rhythm Strip Rhythm Strip: Sinus Rhythm Rate: 70 Ectopy: None EKG Initial EKG: Attestation: I personally reviewed and interpreted this EKG as follows: Interpretation: Sinus Rhythm and No Acute Injury Pattern Comments: Normal sinus rhythm rate of 70 no acute signs of SD or ischemia. Prior EKG tracings: not available for review Discharge Plan Triage Chief Complaint: Shortness of Breath ED Provider: Chance Dowell Dx/Rx/DC Orders Clinical Impression: COPD (chronic obstructive pulmonary disease), Hypoxia Instructions: ED COPD Flare Prescriptions: New prednisone 20 mg tablet 40 mg PO DAILY 7 Days Qty: 14 RF: 0 No Action pravastatin 40 MG tablet 40 mg PO DAILY RF: 0 aspirin 81 MG tablet,chewable 81 mg PO DAILY@0800 RF: 0 epinephrine 0.3 MG syringe 0.3 mg IM PRN PRN (Reason: Anaphylaxis) RF: 0 hbzcxjbo-lyi-dnlv fum-folic ac 1 EACH tablet 1 ea PO DAILY RF: 0 carvedilol 25 MG tablet 25 mg PO BID Qty: 60 RF: 0 amlodipine 10 MG tablet 10 mg PO DAILY Qty: 30 RF: 0 memantine 5 mg Tablet 10 mg PO BID RF: 0 doxepin 10 mg Capsule 10 mg PO DAILY RF: 0 valsartan-hydrochlorothiazide 320-25 mg Tablet 1 tab PO DAILY RF: 0 Trelegy Ellipta 200-62.5-25 mcg Blister With Device 1 inh INHALATION DAILY RF: 0 albuterol sulfate 90 mcg/actuation Hfa Aerosol Inhaler 2 puff INHALATION Q4H RF: 0 azithromycin [azithromycin] 250 MG tablet 250 mg PO DAILY Qty: 4 RF: 0 prednisone 20 MG tablet 40 mg PO DAILY Qty: 8 RF: 0 Primary Care Provider: Abundio Forrester Chi Referrals: Abundio Forrester Chi, MD [Primary Care Provider] - 3-5 Days Activity Restrictions/Additional Instructions: Prednisone every day. Use your inhalers as needed at home. Follow-up with your doctor to ensure you are improving. Return the emergency department if feeling worse. Disposition Disposition: Home, Self Care
[2021-03-02] MEDS: MethylPREDNISolone 125 MG/2 ML Vial IV (16:07)
[2021-03-02] MEDS: Albuterol 2.5 MG/3 ML VIAL.NEB. INHALATION ×2 (16:10)
[2021-03-02] MEDS: Ipratropium/Albuterol Sulfate 3 ML AMPUL.NEB INHALATION (16:10)
[2021-03-02 16:12] LABS: Absolute Lymphocyte Count 1.34 X10^3/uL (0.83-4.51); Absolute Neutrophil Count 7.5 X10^3/uL (2.0-7.7); Basophil# 0.04 X10^3/uL; Basophil% 0.4 % (0-1); Eosinophil# 0.09 X10^3/uL; Eosinophils% 0.9 % (0-5); Hematocrit 46.5 % (40-54); Hemoglobin 14.8 g/dL (13.0-16.5); Lymphocyte # 1.34 X10^3/ul (0.83-4.51); Lymphocyte % 13.6 % (19-41); Mean Corp Hgb Conc 31.8 g/dL (32-36); Mean Corpuscular Hgb 27.6 pg (27.0-32.0); Mean Corpuscular Volume 86.6 fL (80-94); Mean Platelet Vol. 10.8 fl (6.2-12.0); Monocyte# 0.72 X10^3/uL; Monocyte% 7.3 % (0-10); NRBC Flagged by Analyzer 0 % (0-5); Neutrophil # 7.49 X10^3/uL (2.7-7.7); Neutrophil % 76.3 % (47-70); Platelet Count 184 K/mm3 (150-450); RBC Distribution Width CV 13.5 % (11.6-14.6); RBC Distribution Width SD 42.5 fl (35.1-43.9); Red Blood Count 5.37 M/mm3 (4.6-6.2); White Blood Count 9.8 K/mm3 (4.4-11.0)
[2021-03-02 16:30] LABS: BNP,B-Type NATRIURETIC PEPTIDE 68.6 pg/mL (0-100)
[2021-03-02 16:33] LABS: Anion Gap 8 (5-15); BUN 12 mg/dL (7-18); BUN/Creat Ratio 12.8 RATIO (10-20); Calcium,Total 8.9 mg/dL (8.5-10.1); Chloride 101 mmol/L (98-107); Creatinine, Serum 0.94 mg/dL (0.70-1.30); EST Glomerular Filtration Rate 83 mL/min (>60); Est Glom Filt Rate - Afr Amer 100 mL/min (>60); Estimated Creatinine Clearance 66.86 ml/min; Glucose 116 mg/dL (74-106); Potassium 4.1 mmol/L (3.5-5.1); Sodium Level 140 mmol/L (136-145); Troponin-I HS 10 pg/mL (3.0-78.0)
--- NOTE | 2021-03-02 16:35 | RAD_ITS ---
STUDY: X-RAY CHEST REASON FOR EXAM: Male, 75 years old. Chest pain TECHNIQUE: Single AP portable view of the chest. COMPARISON: 01/05/2021 FINDINGS: EKG leads overlie the chest Lungs are mildly hyperexpanded with chronic interstitial changes, no superimposed acute pulmonary process There is no demonstrated pleural abnormality. Normal size heart. Normal mediastinum and caryn. Normal visualized pulmonary arteries. Normal visualized aortic arch and descending thoracic aorta. Normal visualized thoracic spine. Normal visualized ribs, clavicles, and shoulders. There is no demonstrated abnormality of the visualized soft tissue structures of the upper abdomen. RAD/Chest 1 View (Portable) IMPRESSION: Mildly hyperexpanded lungs without a superimposed acute pulmonary process Electronically Signed: Jesus Betts MD at 17:08 EST , Service support ,
[2021-03-02] MEDS: predniSONE 20 MG Tablet 40 MG PO (18:36)
== END 2021-03-02 18:38 | disposition home or self-care (01) ==
PROVIDERS: Emergency Provider Emergency Medicine; PCP Family Medicine Geriatric Medicine
DX: J44.9 Chronic obstructive pulmonary disease, unspecified (principal); R09.02 Hypoxemia; E78.5 Hyperlipidemia, unspecified; I10 Essential (primary) hypertension; F02.80 Dementia in other diseases classified elsewhere, unspecified severity, without behavioral disturbance, psychotic disturbance, mood disturbance, and anxiety; G30.9 Alzheimer's disease, unspecified; Z79.82 Long term (current) use of aspirin; Z79.899 Other long term (current) drug therapy; F17.210 Nicotine dependence, cigarettes, uncomplicated
CPT/HCPCS: 71045; 80048; 83880; 84484; 85025; 87426; 93005; 94640; 96374; 99285; A4216

== ENCOUNTER 2021-03-06 06:53 | Observation (INO) | payer MEDICARE, OTHER, SELFPAY ==
[2021-03-06] VITALS (16 sets, daily range): BP systolic 112–166; BP diastolic 63–102; PULSE 69–88; RESP 11–21; TEMP 36.2–37.1; O2SAT 87–95; BMI 34.4; BMI 32.6
--- NOTE | 2021-03-06 06:57 | CT_ITS ---
STUDY: CT HEAD STROKE PROTOCOL W/O CONTRAST INJECTION REASON FOR EXAM: Male, 75 years old patient with neural deficit. Acute, stroke suspected RADIATION DOSAGE (If Supplied By Facility): CTDIvol = ( 45 ) mGy, DLP = ( 813 ) mGycm TECHNIQUE: Transaxial CT imaging of the brain was performed without administration of intravenous contrast material. Multiplanar reformations are submitted for interpretation. Individualized dose optimization techniques were used for this CT. COMPARISON: CT of the head dated 10/29/2020 FINDINGS: Normal soft tissue structures. Normal calvarium. There is mild cerebral atrophy with widening of the extra-axial spaces and ventricular dilatation. There are areas of decreased attenuation within the white matter tracts of the supratentorial brain, consistent with microvascular disease changes. Normal basal ganglia and thalami. Normal brainstem. Normal cerebellum. There is no intracranial hemorrhage. There is mild atherosclerotic calcification of the intracranial arteries. There are multiple bilateral maxillary mucous retention cysts. CT/STROKE Brain/Head without Cont IMPRESSION: 1. Chronic involutional changes of the brain. 2. No CT evidence of acute intracranial hemorrhage. N.B. : The above Results were Read Back by Umm Stevens MD to Kyaw Rain;[phone], and understanding confirmed on 03/06/2021 07:13:35 (ET). Electronically Signed: Umm Stevens MD at 7:18 EST , Service support ,
--- NOTE | 2021-03-06 06:57 | RAD_ITS ---
STUDY: X-RAY CHEST REASON FOR EXAM: Male, 75 years old. Neuro deficit, acute, stroke suspected TECHNIQUE: AP COMPARISON: 03/02/2021 FINDINGS: EKG leads project over the chest. Coarsened interstitial lung markings. No airspace consolidation. There is no demonstrated pleural abnormality. Normal size heart. Normal mediastinum and caryn. Normal visualized pulmonary arteries. There is atherosclerotic calcification of the aortic arch with tortuosity. No acute bony process. There is no demonstrated abnormality of the visualized soft tissue structures of the upper abdomen. RAD/Chest 1 View IMPRESSION: 1. Nonacute portable x-ray examination of the chest. Electronically Signed: Andrew Rao MD ([place]) at 8:24 EST , Service support ,
--- NOTE | 2021-03-06 06:57 | EKG12_ITS ---
Test Reason : STROKE ALERT Blood Pressure : / mmHG Vent. Rate : 073 BPM Atrial Rate : 073 BPM P-R Int : 162 ms QRS Dur : 072 ms QT Int : 366 ms P-R-T Axes : 057 011 060 degrees QTc Int : 403 ms Normal sinus rhythm Normal ECG Confirmed by JOSE HARRIS MD ([id number]), restaurant expeditor SHANNON MARROQUIN ([id number]) on 03/08/2021 9:50:27 AM Referred By: GBAI Confirmed By:JOSE HARRIS MD
[2021-03-06 07:08] LABS: Hematocrit 46.2 % (40-54); Hemoglobin 14.5 g/dL (13.0-16.5); Mean Corp Hgb Conc 31.4 g/dL (32-36); Mean Corpuscular Hgb 27.5 pg (27.0-32.0); Mean Corpuscular Volume 87.7 fL (80-94); Mean Platelet Vol. 10.5 fl (6.2-12.0); POSITIVE COUNT YES; POSITIVE MORPHOLOGY YES; Platelet Count 178 K/mm3 (150-450); RBC Distribution Width CV 13.7 % (11.6-14.6); RBC Distribution Width SD 44.2 fl (35.1-43.9); Red Blood Count 5.27 M/mm3 (4.6-6.2); White Blood Count 14.3 K/mm3 (4.4-11.0)
[2021-03-06 07:09] LABS: Differential Indicated MANUAL DIFF
--- NOTE | 2021-03-06 07:09 | ED.RN ---
NO NEED TO CALL [facility] AT THIS TIME PATIENT SYMPTOMS HAVE RESOLVED AT THIS TIME PER DR. HERR
[2021-03-06 07:26] LABS: Anion Gap 10 (5-15); BUN 17 mg/dL (7-18); Calcium,Total 8.4 mg/dL (8.5-10.1); Chloride 98 mmol/L (98-107); Creatinine, Serum 1.06 mg/dL (0.70-1.30); EST Glomerular Filtration Rate 72 mL/min (>60); Est Glom Filt Rate - Afr Amer 87 mL/min (>60); Estimated Creatinine Clearance 59.29 ml/min; Glucose 137 mg/dL (74-106); Potassium 3.9 mmol/L (3.5-5.1); Sodium Level 137 mmol/L (136-145); Troponin-I HS 13 pg/mL (3.0-78.0)
[2021-03-06 07:26] LABS: Partial Thromboplast Time 24.2 Seconds (24.1-36.2); Prothrombin Time (Protime)PT. 12.2 SECONDS (11.7-14.9)
--- NOTE | 2021-03-06 07:31 | ED.RN ---
states that pt is at baseline, that at baseline he may or maynot be able to answer questions appropriately.
--- NOTE | 2021-03-06 07:34 | ED.VIS.STROK ---
HPI History of Present Illness Chief Complaint: Neuro S/Sx Narrative Narrative: Patient presents via EMS with slurred speech and strokelike symptoms. He was last known well at 11:30 PM. He went to bed and according to his he woke up this morning, and had slurred speech. He went to stand up and fell. He did not strike his head. There was no loss of consciousness. He was well when he went to bed last evening, but awoke this morning with slurred speech. He denies any headache or other symptoms. EMS reports questionable pronator drift, and slurred speech which was irregular according to the . Stroke team was instituted prior to arrival by EMS. Of note, states that the patient was recently in the emergency department with COPD flare and was sent home on a prednisone burst. He does have past medical history of Alzheimer's dementia. [facility] Medical History Alzheimer's dementia COPD (chronic obstructive pulmonary disease) Hyperlipidemia Hypertension, uncontrolled Hypertensive encephalopathy Nicotine dependence Home Medications aspirin 81 mg PO DAILY@0800 03/25/15 [History Last Taken 03/25/15] epinephrine 0.3 mg IM PRN PRN 03/25/15 [History Last Taken Unknown] pdbfajuw-ray-tjdx fum-folic ac 1 ea PO DAILY 03/25/15 [History Last Taken 03/26/15] carvedilol 25 mg PO BID #60 tablet 03/27/15 [Rx Last Taken Unknown] albuterol sulfate 2 puff INHALATION Q4H 10/29/20 [History Last Taken Unknown] doxepin 10 mg PO DAILY 10/29/20 [History Last Taken Unknown] dsgtwfftxve-xmithugef-nsnvasfw [Trelegy Ellipta] 1 inh INHALATION DAILY 10/29/20 [History Last Taken Unknown] memantine 10 mg PO BID 10/29/20 [History Last Taken Unknown] prednisone 40 mg PO DAILY #8 tablet 10/29/20 [Rx Last Taken Unknown] valsartan-hydrochlorothiazide 1 tab PO DAILY 10/29/20 [History Last Taken Unknown] donepezil 10 mg PO DAILY 03/06/21 [History Last Taken Unknown] varicella-zoster [id number] (PF) [Shingrix (PF)] 0.5 ml IM DAILY 03/06/21 [History Last Taken Unknown] Allergy/AdvReac Type Severity Reaction Status Date / Time venom-honey bee Allergy Anaphylaxis Verified 03/06/21 07:12 [bee venom (honey bee)] Social History Smoking Status: Former smoker ROS ROS ED ROS Narrative Constitutional: No fever, no chills. HEENT: No sore throat. No neck pain. No loss of vision. No rhinorrhea. Cardiovascular: No chest pain. No palpitations. No pedal edema. Respiratory: No cough, no shortness of breath. Abdominal: No abdominal pain. No nausea. No vomiting. Genitourinary: No dysuria. No hematuria. Musculoskeletal: No myalgias. No arthralgias. Neurologic: No headaches. No dizziness. No lightheadedness. Slurred speech this morning. Skin: No rash. No change in color. Psychiatric: No depression. No anxiety. EXAM Physical Exam Narrative Exam Narrative: Afebrile. Vital signs noted. HEENT: Normocephalic. Atraumatic. PERRL, EOMI. Neck soft and supple. No point tenderness or step off. Cardiovascular: Regular rate and rhythm. No murmurs, rubs, or gallops appreciated. Respiratory: No tachypnea. Lungs clear to auscultation bilaterally. Gastrointestinal: Abdomen soft, nontender, with normoactive bowel sounds. No rebound or guarding. Neurological: Awake. Alert. Nonfocal, nonlateralizing. NIH stroke scale is 0. Although he did not know how old he is, he knew the year of his . Additionally, while he got the month wrong, his states that he never knows the month. This is his baseline dementia. Skin: No rash. Normal color. No pallor. Musculoskeletal: No pedal edema. Full range of motion extremities. Const Vital Signs: 03/06/21 07:02 03/06/21 07:08 03/06/21 07:10 Temperature 98.7 F Temperature Source Oral Pulse Rate 71 Respiratory Rate 21 H 12 Blood Pressure 166/102 H Blood Pressure Mean 123 Pulse Ox 87 92 92 Oxygen Delivery Method Room Air Nasal Cannula Nasal Cannula Oxygen Flow Rate (L/min) 2 2 03/06/21 07:11 03/06/21 07:12 03/06/21 07:30 Temperature 98.2 F Temperature Source Oral Pulse Rate 72 73 Respiratory Rate 11 L 12 Blood Pressure 166/102 H 144/84 H Blood Pressure Mean 123 104 Pulse Ox 92 93 Oxygen Delivery Method Nasal Cannula Nasal Cannula Oxygen Flow Rate (L/min) 2 2 STROKE Vital Signs/Narrative: Vital Signs Temp Pulse Resp BP Pulse Ox 03/06/21 07:30 73 12 144/84 H 93 03/06/21 07:12 98.2 F 03/06/21 07:11 72 11 L 166/102 H 92 03/06/21 07:10 92 03/06/21 07:08 98.7 F 12 92 03/06/21 07:02 71 21 H 166/102 H 87 MDM MDM MDM Narrative Medical decision making narrative: Upon arrival to the ED on the cot, with his evaluation his speech is clear. He was sent to CT scan. His CT shows chronic involutional changes of the brain but no evidence of acute intracranial hemorrhage. He has slightly elevated white count of 14.3 but he has recently been on steroids. Hemoglobin normal at 14.5. Coagulation studies are normal. His electrolyte panel is grossly unremarkable except for glucose slightly elevated at 137 with a normal anion gap of 10. His troponin is normal at 13. EKG demonstrates normal sinus rhythm at 73 bpm without ectopy or acute ST changes. He is not a TPA candidate because of rapidly improving symptoms/resolution of his symptoms. I do not feel that his CTA of the head and neck is indicated as he has a negative stroke scale. At this point in time, I will discuss patient with the hospitalist for observation for TIA work-up. Patient was discussed with Dr. Bullard, and will be placed to the PCU for observation. He is in stable condition. Lab Data Attestation: I reviewed the patient's lab results. Labs: Laboratory Results - last 24 hr 03/06/21 03/06/21 03/06/21 06:43 06:43 07:12 WBC 14.3 H RBC 5.27 Hgb 14.5 Hct 46.2 MCV 87.7 MCH 27.5 MCHC 31.4 L RDW Std Deviation 44.2 H RDW Coeff of Mike 13.7 Plt Count 178 MPV 10.5 Neut % (Auto) Not Reportable PT 12.2 INR 1.0 APTT 24.2 Sodium 137 Potassium 3.9 Chloride 98 Carbon Dioxide 29.0 Anion Gap 10 BUN 17 Creatinine 1.06 Estim Creat Clear Calc 59.29 Est GFR (MDRD) Af Amer 87 Est GFR (MDRD) Non-Af 72 BUN/Creatinine Ratio 16.0 Glucose 137 H Calcium 8.4 L Troponin I High Sens 13 Radiography Diagnostic Testing: Clinical Impression(s) from Imaging Studies Brain CT 03/06/21 06:57 IMPRESSION: 1. Chronic involutional changes of the brain. 2. No CT evidence of acute intracranial hemorrhage. N.B. : The above Results were Read Back by Umm Stevens MD to Kyaw Rain;[phone], and understanding confirmed on 03/06/2021 07:13:35 (ET). Electronically Signed: Umm Stevens MD at 7:18 EST , Service support , ADDENDUM: 03/06/21 0725 IMPRESSION: 1. Chronic involutional changes of the brain. 2. No CT evidence of acute intracranial hemorrhage. N.B. : The above Results were Read Back by Umm Stevens MD to Kyaw Rain;[phone], and understanding confirmed on 03/06/2021 07:13:35 (ET). Electronically Signed: Umm Stevens MD at 7:18 EST , Service support , Discharge Plan Dx/Rx/DC Orders Clinical Impression: TIA (transient ischemic attack), COPD (chronic obstructive pulmonary disease) Disposition Disposition: Acute Care [facility]
--- NOTE | 2021-03-06 07:47 | HP.PCM.HOS_ITS ---
HPI - General General Date of Admission: 03/06/21 HPI Narrative CHRIS CERVANTES, is a 75 M with a PMH as outlined who presents with a complaint slurred speech. His last known well was ~ 11:30pm on the night before presentation. He awoke with slurred speech, and also fell after he stood up. Per his , he had seizure like tonic clonic movements when he fell, and this lasted a few minutes. He had associated urinary and bowel incontinence and was also drowsy and lethargic afterwards. He has no history of seizure disorder. He was recently seen in the ED for COPD exacerbation and was discharged home on a course of steroids. He denied any loss of consciousness. He didnt hit his head. His symptoms had resolved by the time he arrived. Stroke alert was called o/a of his slurred speech, but symptoms had resolved by the time he arrived. CT of the brain was negative. He is being admitted to be managed for TIA to rule out a stroke vs seizure. [facility]LY [facility] Medical History Alzheimer's dementia COPD (chronic obstructive pulmonary disease) Hyperlipidemia Hypertension, uncontrolled Hypertensive encephalopathy Nicotine dependence Home Medications aspirin 81 mg PO DAILY@0800 03/25/15 [History Last Taken 03/25/15] epinephrine 0.3 mg IM PRN PRN 03/25/15 [History Last Taken Unknown] uhcgjsiy-hwl-vzij fum-folic ac 1 ea PO DAILY 03/25/15 [History Last Taken 03/26/15] carvedilol 25 mg PO BID #60 tablet 03/27/15 [Rx Last Taken Unknown] albuterol sulfate 2 puff INHALATION Q4H 10/29/20 [History Last Taken Unknown] doxepin 10 mg PO DAILY 10/29/20 [History Last Taken Unknown] psmbvgvjomm-yaigrfusv-wuclbnrm [Trelegy Ellipta] 1 inh INHALATION DAILY 10/29/20 [History Last Taken Unknown] memantine 10 mg PO BID 10/29/20 [History Last Taken Unknown] prednisone 40 mg PO DAILY #8 tablet 10/29/20 [Rx Last Taken Unknown] valsartan-hydrochlorothiazide 1 tab PO DAILY 10/29/20 [History Last Taken Unknown] donepezil 10 mg PO DAILY 03/06/21 [History Last Taken Unknown] varicella-zoster [id number] (PF) [Shingrix (PF)] 0.5 ml IM DAILY 03/06/21 [History Last Taken Unknown] Allergy/AdvReac Type Severity Reaction Status Date / Time venom-honey bee Allergy Anaphylaxis Verified 03/06/21 07:12 [bee venom (honey bee)] Family History Mother Heart disease Social History Smoking Status: Former smoker ROS Constitutional Constitutional: Denies anorexia, chills, fatigue, malaise or weakness Eyes Eyes: Denies change in vision ENT HEENT: Denies abnormal hearing Cardiovascular Cardiovascular: Reports syncope; Denies chest pain, dyspnea on exertion, edema, lightheadedness, orthopnea, paroxysmal nocturnal dyspnea or rapid heart rate Respiratory/Chest Respiratory/Chest: Denies cough, dyspnea, productive cough, shortness of breath at rest, shortness of breath with exertion or wheezing Gastrointestinal Gastrointestinal: Denies abdominal pain, constipation, diarrhea, hematochezia, nausea or vomiting Genitourinary Genitourinary: Denies burning urination, dysuria or urinary frequency Musculoskeletal Musculoskeletal: Denies arthralgias, back pain, joint pain or joint swelling Neurologic Neurologic: Reports seizure-like activity; Denies confusion, dizziness, focal weakness, headache(s), numbness, syncope or tingling Psychiatric Psychiatric: Reports depression; Denies anxiety Vital Signs Vital Signs Vital Signs: 03/06/21 07:02 03/06/21 07:08 03/06/21 07:10 Temperature 98.7 F Temperature Source Oral Pulse Rate 71 Respiratory Rate 21 H 12 Blood Pressure 166/102 H Blood Pressure Mean 123 Pulse Ox 87 92 92 Oxygen Delivery Method Room Air Nasal Cannula Nasal Cannula Oxygen Flow Rate (L/min) 2 2 03/06/21 07:11 03/06/21 07:12 03/06/21 07:30 Temperature 98.2 F Temperature Source Oral Pulse Rate 72 73 Respiratory Rate 11 L 12 Blood Pressure 166/102 H 144/84 H Blood Pressure Mean 123 104 Pulse Ox 92 93 Oxygen Delivery Method Nasal Cannula Nasal Cannula Oxygen Flow Rate (L/min) 2 2 Weight Weight: 233 lb 7.512 oz Body Mass Index (BMI) 34.4 Physical Exam Const alert, oriented x3 and no apparent distress General Appearance: cooperative HEENT normocephalic, head/scalp atraumatic, moist oral mucous membranes and oropharynx normal Eyes PERRL, EOMs intact bilaterally and conjunctivae normal Neck no lymphadenopathy Resp normal respiratory effort, no retractions, no use of accessory muscles and clear to auscultation bilaterally Cardio regular rate, regular rhythm, S1 normal heart sound, S2 normal heart sound and no murmurs GI normal to inspection, nondistended, normoactive bowel sounds, soft to palpation and non-tender Extremity normal to inspection, full ROM and no clubbing, cyanosis or edema Peripheral Pulses: Yes pulses 2+ throughout Skin no rashes or lesions noted Neuro oriented x3, CN's II-XII intact bilaterally, moves all extremities and no focal motor deficits Neuro Narrative: NIHSS is 0 Sensorium / Orientation: awake and alert Speech: speech normal Motor Exam: strength 5/5 throughout Psych affect normal Results Lab / Micro Data Result Diagrams: 03/06/21 06:43 03/06/21 06:43 Labs: Laboratory Results - last 24 hr 03/06/21 06:43: WBC 14.3 H, RBC 5.27, Hgb 14.5, Hct 46.2, MCV 87.7, MCH 27.5, MCHC 31.4 L, RDW Std Deviation 44.2 H, RDW Coeff of Mike 13.7, Plt Count 178, MPV 10.5, Neut % (Auto) Not Reportable 03/06/21 06:43: Sodium 137, Potassium 3.9, Chloride 98, Carbon Dioxide 29.0, Anion Gap 10, BUN 17, Creatinine 1.06, Estim Creat Clear Calc 59.29, Est GFR (MDRD) Af Amer 87, Est GFR (MDRD) Non-Af 72, BUN/Creatinine Ratio 16.0, Glucose 137 H, Calcium 8.4 L, Troponin I High Sens 13 03/06/21 07:12: PT 12.2, INR 1.0, APTT 24.[address] 03/06/21 06:57 IMPRESSION: 1. Chronic involutional changes of the brain. 2. No CT evidence of acute intracranial hemorrhage. N.B. : The above Results were Read Back by Umm Stevens MD to Kyaw Rain;[phone], and understanding confirmed on 03/06/2021 07:13:35 (ET). Electronically Signed: Umm Stevens MD at 7:18 EST , Service support , ADDENDUM: 03/06/21 0725 IMPRESSION: 1. Chronic involutional changes of the brain. 2. No CT evidence of acute intracranial hemorrhage. N.B. : The above Results were Read Back by Umm Stevens MD to Kyaw Rain;[phone], and understanding confirmed on 03/06/2021 07:13:35 (ET). Electronically Signed: Umm Stevesn MD at 7:18 EST , Service support , Assessment & Plan Assessment/Plan (1) TIA (transient ischemic attack): (2) Seizure: PLAN: #TIA vs new onset seizure * admit to PCU * patient passed out and witnessed seizure like activity and slurred speech. He also had drowsiness and urinary and fecal incontinence afterwards * CT of the brain negative * MRI of the brain and MRA of hte head and neck ordered * consult neurology * seizure precautions. Give aspirin and high intensity statin * give loading dose of Keppra 1000mg x 1 * check LDL and A1C * get EEG * #COPD * breathing treatment with bronchodilators * #Alzheimer's dementia: on donepezil and memantine #Hypertension: on carvedilol, HCTZ and valsartan. DVT prophylaxis: lovenox Charges/Coding Visit Charges OBSV E&M: 24283 Initial observation care L3
--- NOTE | 2021-03-06 07:53 | NURSING ---
PCU OBS KORAM TIA
--- NOTE | 2021-03-06 07:54 | NURSING ---
STROKE ALERT CALLED [id number] PRIOR TO ARRIVAL, ETA IS 10 MIN
[2021-03-06 08:53] LABS: Lymphocyte 25 % (19-41); Monocyte 3 % (0-10); Myelocyte 5 % (0-0); Neutrophil-Band 1 % (0-5); Neutrophil-Segmented 66 % (47-70); Total Cells Counted 100 (MANUAL DIFF)
[2021-03-06 08:54] LABS: Platelet Estimate ADEQUATE (ADEQ); Red Cell Morphology NORM C+C NORMAL (NORM C&C)
[2021-03-06 08:55] LABS: Absolute Lymphocyte Count 3.58 X10^3/uL (0.83-4.51); Absolute Neutrophil Count 9.6 X10^3/uL (2.0-7.7)
--- NOTE | 2021-03-06 09:02 | PCS.PANDOC ---
PANDEMIC DOCUMENTATION INITIATED: Date: 10/23/2020 Time: 190
--- NOTE | 2021-03-06 09:44 | MRI_ITS ---
STUDY: MRA NECK WITH AND WITHOUT CONTRAST REASON FOR EXAM: Male, 75 years old. TIA, DIFFICULTY W/ Speech, memory, AMS TECHNIQUE: 3-D [id number] (TOF) imaging was performed in an 1.5 T MRI scanner. 20ML IV DOTAREM was administered for the contrast enhanced images. COMPARISON: None. FINDINGS: RIGHT CAROTID ARTERIES: Normal right common carotid artery (CCA). Normal right internal carotid bulb. Normal origin of the right internal carotid (ICA) artery without a hemodynamically significant stenosis. Normal visualized cervical portion of the right internal carotid artery. Normal origin of the right external carotid artery (ECA). LEFT CAROTID ARTERIES: Normal left common carotid artery (CCA). Normal left internal carotid bulb. Normal origin of the left internal carotid (ICA) artery without a hemodynamically significant stenosis. Normal visualized cervical portion of the left internal carotid artery. Normal origin of the left external carotid artery (ECA). VERTEBRAL ARTERIES: Segmental high-grade stenosis in the intrathoracic segment, mid cervical segment and the intradural segment of the left vertebral artery near the VB junction. No significant stenosis of the dominant right vertebral artery. Suspicious high-grade stenosis at the subclavian origins of both vertebral arteries. MRI/MRA Neck WITH and W/O Contrast IMPRESSION: 1. No significant stenosis in both carotid arteries. 2. 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 3. Suspicious high-grade stenosis in the subclavian origins of both vertebral arteries. 4. No significant stenosis in the cervical segments and intradural segment of the dominant right vertebral artery. RECOMMENDATION: CTA neck and head will be very helpful to correlate with these findings of posterior circulation stenosis. Electronically Signed: Kyaw Neff MD at 8:56 EST , Service support ,
--- NOTE | 2021-03-06 09:44 | MRI_ITS ---
STUDY: MRA OF THE HEAD WITHOUT CONTRAST REASON FOR EXAM: Male, 75 years old. TIA, DIFFICULTY W/ SPEECH,MEMORY, AMS TECHNIQUE: 3-D [id number]-[id number] (TOF) imaging was performed with MIPs. The study was performed unenhanced. COMPARISON: None. FINDINGS: This study is slightly limited due to patient motion. Normal bilateral petrous and cavernous carotid arteries. Normal anterior cerebral arteries. Nonvisualized anterior communicating artery. Normal middle cerebral arteries. Nonvisualized right posterior communicating artery. Normal left posterior communicating artery (PCOM). Distal left vertebral artery is suboptimally demonstrated. This may be due to stenosis versus patient motion. Normal basilar artery with a normal basilar bifurcation. The visualized bilateral superior cerebellar (SCA) arteries are normal. Normal bilateral P1, P2 and visualized P3 segments of the posterior cerebral arteries. There is no high-grade stenosis or large vessel occlusion. MRI/MRA Head ONLY without Contrast IMPRESSION: Limited due to patient motion. Poor visualization of the left distal vertebral artery, possibly due to motion artifact versus stenosis. Electronically Signed: Sue Christensen MD at 23:54 EST Tel , Service support ,
--- NOTE | 2021-03-06 09:46 | ECHOCS_ITS ---
Reason For Study: TIA/CVA Procedure This was a 2D Doppler, Color Flow transthoracic echocardiogram. Technically difficult study, contrast and bubble study performed. Exam performed portable in patient room. Left Ventricle Normal LV size. Left ventricular systolic function is normal. The estimated ejection fraction is 65 %. Stage 1 diastolic dysfunction. No regional wall motion abnormalities noted. Right Ventricle Normal RV size. Normal systolic function. Atria Normal left atrium. Normal right atrium. Mitral Valve Normal mitral valve. Tricuspid Valve Normal tricuspid valve. Aortic Valve Trisinus/trileaflet aortic valve. Mild focal aortic valve calcification. Pulmonic Valve The pulmonic valve is not well visualized. Great Vessels Normal aortic root. Pericardium/Pleural No pericardial effusion. Medication Diluted definity 2ml given slow IV push to enhance endocardial definition. Performed a rapid injection of agitated mix of 9 cc saline and 1cc air to assess for atrial septal defect. MMode/2D Measurements & Calculations LVIDd: 4.7 cm IVSd: 1.3 cm LA dimension: 4.0 cm LVIDs: 2.5 cm LVPWd: 1.4 cm FS: 47.7 % LAV(MOD-bp): 62.7 ml LA A4 area: 20.4 cm2 RA A4 area: 18.0 cm2 LAV(MOD-bp) Indexed: 29.1 ml/m2 LAV(MOD-sp2): 60.6 ml LAV(MOD-sp4): 59.3 ml Time Measurements MV dec time: 0.29 sec Doppler Measurements & Calculations MV E max mg: 77.0 cm/sec Lat Peak E' Mg: 6.3 cm/sec Med Peak E' Mg: 5.4 cm/sec MV A max mg: 119.2 cm/sec E/E' lat: 12.3 E/E' med: 14.4 MV E/A: 0.65 MV V2 max: 113.9 cm/sec MV P1/2t max mg: 89.9 cm/sec Ao V2 max: 137.4 cm/sec MV max P.2 mmHg MV P1/2t: 64.1 msec Ao max P.6 mmHg MV V2 mean: 58.9 cm/sec MV dec slope: 411.2 cm/sec2 MV mean P.7 mmHg MV V2 VTI: 31.1 cm MVA(P1/2t): 3.4 cm2 LV V1 max: 105.0 cm/sec PA V2 max: 133.9 cm/sec LV V1 max P.4 mmHg ECHO/Echo Complete W/ Contrast Interpretation Summary Normal LV size. Left ventricular systolic function is normal. The estimated ejection fraction is 65 %. Stage 1 diastolic dysfunction. Contrast injection was performed. Ordering Physician: Cece Bullard Referring Physician: Abundio Forrester Chi Performed By: Irving Álvarez RCS
--- NOTE | 2021-03-06 09:48 | MRI_ITS ---
HISTORY: seizure, TIA, DIFFICULTY W/ SPEECH, MEMORY, AMS. TECHNIQUE: Multiplanar and multisequence MR images of the brain were obtained without gadolinium. # of images incl. paperwork: 283. COMPARISON: CT same day. FINDINGS: BRAIN PARENCHYMA: Very mild T2 FLAIR hyperintense signal in the bilateral cerebral white matter. No abnormal focus of restricted diffusion. INTRACRANIAL HEMORRHAGE: No acute intracranial hemorrhage. CSF SPACES: Mild generalized volume loss. No midline shift or other significant mass effect. No extra-axial fluid collection. VASCULAR SYSTEM: Major intracranial flow-voids maintained. ORBITS: Bilateral lens resections. PARANASAL SINUSES AND MASTOID AIR CELLS: Maxillary sinus mucous retention cysts. MRI/Brain without Contrast IMPRESSION: No evidence for acute infarct. Chronic small vessel ischemic gliosis. at 1634 Reported and signed by: Jennifer Spears MD Electronically Signed: Jennifer Spears MD at 16:33 EST Tel , Service support ,
[2021-03-06] MEDS: Aspirin 81 MG TAB.CHEW PO (10:11)
[2021-03-06] MEDS: Doxepin Hydrochloride 10 MG Capsule PO (10:11)
[2021-03-06] MEDS: Losartan Potassium 100 MG Tablet PO (10:11)
[2021-03-06] MEDS: Multivitamins,Ther W-Minerals Tablet 1 TABLET PO (10:11)
[2021-03-06] MEDS: hydroCHLOROthiazide 25 MG Tablet PO (10:11)
[2021-03-06] MEDS: Carvedilol 25 MG Tablet PO ×2 (10:11→21:12)
[2021-03-06] MEDS: predniSONE 20 MG Tablet 40 MG PO (10:11)
[2021-03-06] MEDS: levETIRAcetam IV 1,000 MG/100 ML BAG 400 MG IV (10:40)
[2021-03-06] MEDS: Donepezil HCl 10 MG Tablet PO (10:41)
[2021-03-06] MEDS: Memantine Hydrochloride 10 MG Tablet PO ×2 (10:41→21:12)
[2021-03-06] MEDS: Fluticasone/Salmeterol 232-14 Inhaler 1 PUFF INHALATION (10:41)
[2021-03-06 10:46] LABS: Troponin-I HS 31 pg/mL (3.0-78.0)
[2021-03-06] MEDS: LORazepam 1 MG Tablet PO ×2 (13:08→17:11)
[2021-03-06 13:21] LABS: Troponin-I HS 28 pg/mL (3.0-78.0)
--- NOTE | 2021-03-06 15:44 | TELEMED_ITS ---
[facility] Telemed has confirmed receipt of a request for visit. This document confirms receipt of the order initiating the consult. To find the results of the consultation, please view the patient's reports for the scanned Telemed Consult.
--- NOTE | 2021-03-06 15:55 | CHAPLAIN ---
Type of Pastoral Visit _x__ Initial Visit ___ Follow-up Visit ___ On-call Visit ___ General Patient Visit ___ Spiritual Assessment ___ Family Conference ___ Bereavement ___ Rapid Response ___ Code Blue ___ Other (describe below) Pastoral Care Referral From ___ Patient _x__ Family ___ Nurse ___ Physician ___ Structural Mill Supervisor ___ [employer]ing Machine Operator ___ Other (describe below) Sacrament/Intervention ___ Active listening ___ Anointing ___ Christian ___ Bereavement ___ Communion ___ Pat exploration ___ ___ Life review ___ Prayer ___ Reconciliation ___ Sacrament of Sick _x__ Supportive presence ___ Wedding ___ Other (describe below) Pastoral Comments spouse is with patient and she answers most of the questions and gives explanation of this admission; pt is having tests done and he is not sure what or why of things right now
[2021-03-06 16:30] LABS: Hemoglobin A1c 5.7 % (3.8-5.6)
[2021-03-06] MEDS: Atorvastatin Calcium 80 MG Tablet PO (21:12)
[2021-03-06 23:02] LABS: Bacteria 0 SEEN /hpf (None Seen); Mucous, Urine 0 SEEN /hpf (<or=2+); Red Blood Cells-Urine 0 SEEN /hpf (0-5); Squamous Epithelial Cells - UA 0 SEEN /hpf (0-5); White Blood Cells 0 SEEN /hpf (0-5)
[2021-03-06 23:05] LABS: Color, Urine Yellow (Yellow); Glucose, Dipstick Normal (Normal); Ketone-Dipstick Negative (Negative); Leukocyte Esterase-Dipstick Negative /ul (Negative); Nitrite-Dipstick Negative (Negative); Occult Blood-Urine Negative /ul (Negative); Protein-Dipstick Negative (Negative); Specific Gravity, Urine 1.015 (1.002-1.030); Urine Bilirubin Dipstick Negative (Negative); Urine Clarity Clear (Clear); Urine Urobilinogen Normal (Normal); Urine pH 6.5 (5.0 - 8.0)
[2021-03-07 02:35] VITALS: BP 102/53; BP 103/63; BP 79/48; PULSE 79; PULSE 86; PULSE 89; RESP 18; TEMP 36.5; O2SAT 92
[2021-03-07] MEDS: 0.9% Normal Saline 1,000 ML 999 ML IV (02:55)
[2021-03-07] MEDS: 0.9% Saline Lock 10 ML Syringe IV (02:55)
[2021-03-07 02:59] VITALS: PULSE 81
[2021-03-07 04:24] VITALS: BP 151/81; PULSE 75; RESP 16; TEMP 36.6; O2SAT 93
[2021-03-07 05:57] LABS: Hematocrit 40.9 % (40-54); Hemoglobin 13.2 g/dL (13.0-16.5); Mean Corp Hgb Conc 32.3 g/dL (32-36); Mean Corpuscular Volume 86.7 fL (80-94); Mean Platelet Vol. 10.7 fl (6.2-12.0); POSITIVE COUNT YES; POSITIVE MORPHOLOGY YES; Platelet Count 148 K/mm3 (150-450); RBC Distribution Width CV 13.9 % (11.6-14.6); RBC Distribution Width SD 43.7 fl (35.1-43.9); Red Blood Count 4.72 M/mm3 (4.6-6.2); White Blood Count 11.8 K/mm3 (4.4-11.0)
[2021-03-07 06:16] LABS: Differential Indicated MANUAL DIFF
[2021-03-07 06:30] LABS: Anion Gap 6 (5-15); BUN 18 mg/dL (7-18); BUN/Creat Ratio 17.5 RATIO (10-20); Calcium,Total 8.1 mg/dL (8.5-10.1); Chloride 99 mmol/L (98-107); Cholesterol 235 mg/dL (200); Creatinine, Serum 1.03 mg/dL (0.70-1.30); EST Glomerular Filtration Rate 75 mL/min (>60); Est Glom Filt Rate - Afr Amer 90 mL/min (>60); Estimated Creatinine Clearance 61.01 ml/min; Glucose 171 mg/dL (74-106); High Density Lipoprotein 41 mg/dL; Potassium 3.5 mmol/L (3.5-5.1); Sodium Level 138 mmol/L (136-145); Triglycerides 500 mg/dL
[2021-03-07 06:34] LABS: Absolute Neutrophil Count 8.7 X10^3/uL (2.0-7.7)
[2021-03-07 06:35] LABS: Absolute Lymphocyte Count 1.65 X10^3/uL (0.83-4.51); Lymphocyte 14 % (19-41); Metamyelocyte 1 % (0-1); Monocyte 5 % (0-10); Myelocyte 1 % (0-0); Neutrophil-Band 4 % (0-5); Neutrophil-Segmented 70 % (47-70); Promyelocyte 5 % (0-0); Total Cells Counted 100 (MANUAL DIFF)
[2021-03-07 06:36] LABS: Atypical Lymphocyte 2+ %; Platelet Estimate SLT DEC (ADEQ)
[2021-03-07 06:37] LABS: Red Cell Morphology NORM C+C NORMAL (NORM C&C)
[2021-03-07 07:27] VITALS: PULSE 75
[2021-03-07 09:25] VITALS: BP 136/68; PULSE 87; RESP 16; TEMP 36.8; O2SAT 93
[2021-03-07] MEDS: Multivitamins,Ther W-Minerals Tablet 1 TABLET PO (09:29)
[2021-03-07] MEDS: Carvedilol 25 MG Tablet PO (09:29)
[2021-03-07] MEDS: Donepezil HCl 10 MG Tablet PO (09:29)
[2021-03-07] MEDS: Doxepin Hydrochloride 10 MG Capsule PO (09:29)
[2021-03-07] MEDS: Aspirin 81 MG TAB.CHEW PO (09:29)
[2021-03-07] MEDS: Memantine Hydrochloride 10 MG Tablet PO (09:29)
[2021-03-07] MEDS: predniSONE 20 MG Tablet 40 MG PO (09:29)
[2021-03-07] MEDS: Fluticasone/Salmeterol 232-14 Inhaler 1 PUFF INHALATION (09:31)
[2021-03-07 10:14] LABS: Pathologist Review Reviewed
--- NOTE | 2021-03-07 10:27 | PCM.DC.SUM ---
Providers Date of Admission: 03/06/21 Primary Care Physician: Dr. Abundio Forrester MD Reason For Visit: TIA Diagnosis Discharge Diagnosis (1) TIA (transient ischemic attack): Status: Acute Code(s): G45.9 - Transient cerebral ischemic attack, unspecified (2) Seizure: Status: Acute Code(s): R56.9 - Unspecified convulsions Medications at Discharge Home Medications aspirin 81 mg PO DAILY@0800 03/25/15 epinephrine 0.3 mg IM PRN PRN 03/25/15 cikdigks-vuj-voat fum-folic ac 1 ea PO DAILY 03/25/15 carvedilol 25 mg PO BID #60 tablet 03/27/15 Trelegy Ellipta 1 inh INHALATION DAILY 10/29/20 albuterol sulfate 2 puff INHALATION PRN PRN 10/29/20 doxepin 10 mg PO DAILY 10/29/20 memantine 10 mg PO BID 10/29/20 prednisone 40 mg PO DAILY #8 tablet 10/29/20 Shingrix (PF) 0.5 ml IM DAILY 03/06/21 donepezil 10 mg PO DAILY 03/06/21 atorvastatin 40 mg PO QHS #30 tab 03/07/21 Hospital Course Operations None Procedures 2-D Echocardiogram Summary of Care Provided Minutes Spent on Discharge: 40 Hospital Course: CHRIS CERVANTES, is a 75 M with a PMH as outlined who presents with a complaint slurred speech. His last known well was ~ 11:30pm on the night before presentation. He awoke with slurred speech, and also fell after he stood up. Per his , he had seizure like tonic clonic movements when he fell, and this lasted a few minutes. He had associated urinary and bowel incontinence and was also drowsy and lethargic afterwards. He has no history of seizure disorder. He was recently seen in the ED for COPD exacerbation and was discharged home on a course of steroids. He denied any loss of consciousness. He didnt hit his head. His symptoms had resolved by the time he arrived. Stroke alert was called o/a of his slurred speech, but symptoms had resolved by the time he arrived. CT of the brain was negative. He was admitted to be managed for TIA to rule out a stroke vs seizure. He had a CT of the brain which was negative for stroke; MRI of the brain was also negative for stroke. 2D echo showed normal LV size and function, with EF of 65% and stage I diastolic dysfunction. [facility] neurology was consulted and thought this might have been due to orthostatic hypotension and encouraged generous oral hydration. [facility] recommended holding off on any anticonvulsant if EEG was negative which it was. Is also recommended that if patient did have a seizure again or had an abnormal EEG, to be started with lamotrigine and not Keppra as Keppra was associated with an increase in agitation which would not be beneficial to patient in light of his early onset Alzheimer's dementia. Patient remained stable and was discharged home on 03/07/2021. He is to follow-up with his primary care doctor and was referred to neurology on outpatient basis. Lipid panel also showed elevated cholesterol and elevated triglycerides, and A1C was 5.7. He was also therefore started on high intensity statin. Patient seen and examined prior to discharge. He had no active complaints and felt well. Review of systems otherwise negative. Labs and vitals reviewed. Home medication reviewed and reconciled. Physical Exam Const alert, oriented x3 and no apparent distress General Appearance: cooperative, comfortable and well kempt Orientation / Consciousness: awake and oriented to person HEENT normocephalic, head/scalp atraumatic, moist oral mucous membranes and oropharynx normal Eyes PERRL, EOMs intact bilaterally and conjunctivae normal Neck no lymphadenopathy Resp normal respiratory effort, no retractions, no use of accessory muscles and clear to auscultation bilaterally Cardio regular rate, regular rhythm, S1 normal heart sound, S2 normal heart sound and no murmurs GI normal to inspection, nondistended, normoactive bowel sounds, soft to palpation and non-tender Extremity normal to inspection, full ROM and no clubbing, cyanosis or edema Skin no rashes or lesions noted Neuro oriented x3, CN's II-XII intact bilaterally, moves all extremities and no focal motor deficits Neuro Narrative: NIHSS is 0 Sensorium / Orientation: awake and alert Speech: speech normal Motor Exam: strength 5/5 throughout Psych affect normal Weight / BMI Weight Weight: 221 lb 6 oz Body Mass Index (BMI) 32.6 ABG / Lab / Microbiology Data Result Diagrams: 03/07/21 05:18 03/07/21 05:18 Laboratory: Laboratory Results - last 24 hr 03/06/21 06:43: Diff Path Review Reviewed 03/06/21 06:43: Hemoglobin A1c 5.7 H 03/06/21 10:15: Troponin I High Sens 31 03/06/21 12:40: Troponin I High Sens 28 03/06/21 22:45: Urine Color Yellow, Urine Clarity Clear, Urine pH 6.5, Ur Specific [place] 1.015, Urine Protein Negative, Urine Glucose (UA) Normal, Urine Ketones Negative, Urine Occult Blood Negative, Urine Nitrite Negative, Urine Bilirubin Negative, Urine Urobilinogen Normal, Ur Leukocyte Esterase Negative, Urine RBC 0 SEEN, Urine WBC 0 SEEN, Ur Squamous Epith Cells 0 SEEN, Urine Bacteria 0 SEEN, Urine Mucus 0 SEEN 03/07/21 05:18: WBC 11.8 H, RBC 4.72, Hgb 13.2, Hct 40.9, MCV 86.7, MCH 28.0, MCHC 32.3, RDW Std Deviation 43.7, RDW Coeff of Mike 13.9, Plt Count 148 L, MPV 10.7, Neut % (Auto) Not Reportable, Absolute Neuts (auto) 8.7 H, Absolute Lymphs (auto) 1.65, Total Counted 100, Neutrophils % (Manual) 70, Band Neutrophils % 4, Lymphocytes % (Manual) 14 L, Monocytes % (Manual) 5, Metamyelocytes % 1, Myelocytes % 1 H, Promyelocytes % 5 H, Diff Path Review May foll, Atypical Lymphocytes 2+, Platelet Estimate SLT DEC, RBC Morphology NORM C+C 03/07/21 05:18: Sodium 138, Potassium 3.5, Chloride 99, Carbon Dioxide 33.0 H, Anion Gap 6, BUN 18, Creatinine 1.03, Estim Creat Clear Calc 61.01, Est GFR (MDRD) Af Amer 90, Est GFR (MDRD) Non-Af 75, BUN/Creatinine Ratio 17.5, Glucose 171 H, Calcium 8.1 L, Triglycerides 500 H, Cholesterol 235 H, LDL Cholesterol TNP, VLDL Cholesterol TNP, HDL Cholesterol 41 Microbiology: Microbiology 03/06/21 07:50 Nasal Secretion SARS-CoV-2 Antigen (Rapid) - Final Radiography Diagnostic Testing: Radiology Impression Chest X-Ray 03/06/21 06:57 IMPRESSION: 1. Nonacute portable x-ray examination of the chest. Electronically Signed: Andrew Rao MD ([place]) at 8:24 EST , Service support , ADDENDUM: 03/06/21 1049 IMPRESSION: 1. Nonacute portable x-ray examination of the chest. Electronically Signed: Andrew Rao MD ([place]) at 8:24 EST , Service support , Head MRA 03/06/21 09:44 IMPRESSION: Limited due to patient motion. Poor visualization of the left distal vertebral artery, possibly due to motion artifact versus stenosis. Electronically Signed: Sue Christensen MD at 23:54 EST Tel , Service support , Neck MRA 03/06/21 09:44 IMPRESSION: 1. No significant stenosis in both carotid arteries. 2. 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 3. Suspicious high-grade stenosis in the subclavian origins of both vertebral arteries. 4. No significant stenosis in the cervical segments and intradural segment of the dominant right vertebral artery. RECOMMENDATION: CTA neck and head will be very helpful to correlate with these findings of posterior circulation stenosis. Electronically Signed: Kyaw Neff MD at 8:56 EST , Service support , Echocardiogram 03/06/21 09:46 Interpretation Summary Normal LV size. Left ventricular systolic function is normal. The estimated ejection fraction is 65 %. Stage 1 diastolic dysfunction. Contrast injection was performed. Ordering Physician: Cece Bullard Referring Physician: Abundio Forrester Chi Performed By: Irving Álvarez RCS Brain MRI 03/06/21 09:48 IMPRESSION: No evidence for acute infarct. Chronic small vessel ischemic gliosis. at 1634 Reported and signed by: Jennifer Spears MD Electronically Signed: Jennifer Spears MD at 16:33 EST Tel , Service support , D/C Instructions Discharge Diet: Low fat / Low cholesterol Call your doctor if you observe: Fever of 101 or Higher, Shortness of breath, Swelling in the ankles and Increased palpitations (irregular heartbeat) Meaningful Use Info Meaningful Use Diagnoses (Choose all that apply): None applicable Discharge Plan Admission Admit Date/Time: 03/06/21 07:50 Primary Reason for Your Visit: TIA Attending Provider: Cece Bullard Primary Care Provider: Abundio Forrester Chi Discharge Orders/Prescriptions Prescriptions: New atorvastatin 40 mg tablet 40 mg PO QHS Qty: 30 RF: 1 Continued aspirin 81 MG tablet,chewable 81 mg PO DAILY@0800 RF: 0 epinephrine 0.3 MG syringe 0.3 mg IM PRN PRN (Reason: Anaphylaxis) RF: 0 roeghmmh-ufh-jbnx fum-folic ac 1 EACH tablet 1 ea PO DAILY RF: 0 carvedilol 25 MG tablet 25 mg PO BID Qty: 60 RF: 0 memantine 5 mg Tablet 10 mg PO BID RF: 0 doxepin 10 mg Capsule 10 mg PO DAILY RF: 0 Trelegy Ellipta 200-62.5-25 mcg Blister With Device 1 inh INHALATION DAILY RF: 0 albuterol sulfate 90 mcg/actuation Hfa Aerosol Inhaler 2 puff INHALATION PRN PRN (Reason: sob) RF: 0 prednisone 20 MG tablet 40 mg PO DAILY Qty: 8 RF: 0 donepezil 10 mg tablet 10 mg PO DAILY RF: 0 Shingrix (PF) 50 mcg/0.5 mL Suspension For Reconstitution 0.5 ml IM DAILY RF: 0 Referrals / Follow Up: Talib Manriquez MD [STAFF PHYSICIAN] - Within 2 Weeks Abundio Forrester Chi, MD [Primary Care Provider] - Within 2 Weeks Disposition Disposition (needs filled in before D/C Order can be placed): Home, Self Care Charges/Coding Visit Charges OBSV E&M: 22442 Observation care discharge
--- NOTE | 2021-03-07 10:51 | CASEMGMT ---
Addendum entered by Vangie Littlejohn 03/07/21 11:33: Pt was orthostatic but got a liter of NS and orthos re-checked. Pt no longer orthostatic. Fam LILLY CM Original Note: Per therapy, no further therapy recommended for pt at discharge. Fam LILLY CM
[2021-03-07 11:21] VITALS: BP 110/66; BP 123/74; BP 125/68; PULSE 74; PULSE 81; PULSE 83
--- NOTE | 2021-03-07 11:56 | CASEMGMT ---
MAXX CM to room with PATEL form. Patient's at bedside. Explanation of form provided to patient and and questions answered. Signed form placed on patient's chart and copy provided to patient. Patient eager for discharge. Patient and deny need for home health care services.
[2021-03-07 15:46] LABS: Pathologist Review Reviewed
== END 2021-03-07 10:47 | disposition home or self-care (01) ==
LOC: ED 07:50 → PCU 07:56
PROVIDERS: Internal Medicine; Admitting Provider Student in an Organized Health Care Education/Training Program; Emergency Provider Emergency Medicine; PCP Family Medicine Geriatric Medicine; Visit Provider Student in an Organized Health Care Education/Training Program
DX: G45.9 Transient cerebral ischemic attack, unspecified (principal); R47.81 Slurred speech; J44.9 Chronic obstructive pulmonary disease, unspecified; G30.9 Alzheimer's disease, unspecified; E78.5 Hyperlipidemia, unspecified; I10 Essential (primary) hypertension; R56.9 Unspecified convulsions; R15.9 Full incontinence of feces; F02.80 Dementia in other diseases classified elsewhere, unspecified severity, without behavioral disturbance, psychotic disturbance, mood disturbance, and anxiety; Z79.899 Other long term (current) drug therapy; Z79.82 Long term (current) use of aspirin; Z79.51 Long term (current) use of inhaled steroids; Z87.891 Personal history of nicotine dependence
CPT/HCPCS: 36415; 70450; 70544; 70549; 70551; 71045; 80048; 80061; 81001; 83036; 84484; 85025; 85610; 85730; 87426; 92610; 93005; 93306; 94762; 95819; 96361; 96365; 97162; 97166; 99218; 99285; 99406; A9575; J7030; Q9957; A4216; C8929; G0378

== ENCOUNTER 2021-04-03 11:20 | Outpatient (CLI) | payer MEDICARE, OTHER, SELFPAY ==
--- NOTE | 2021-04-03 | LES_PTH ---
PATIENT: CHRIS CERVANTES LOC: [facility] U#:[id number] AGE/SX: 75/M ROOM: RE04/03/[address]: Dr. Abundio Forrester MD : 1945 BED: DIS: 04/03/2021 SPEC #: [id number] RECD: 04/03/21 17:16 STATUS: OTONIEL ALISSON #: [id number] LEVON: 04/03/21 00:[address]: Abundio Forrester Chi DEPT: SURGICAL PATHOLOGY RECD BY: González Bauman Tissues: A - Skin of scalp, NOS B - Skin of scalp, NOS C - Skin of scalp, NOS D - Skin of scalp, NOS Procedures: Surgery Specimen Level IV HEADER OPERATION: Scalp lesion removal PRE-OP DIAGNOSIS: Scalp lesion TISSUE SUBMITTED: A ? Scalp lesion, B - Scalp lesion, C - Scalp lesion, D - Scalp lesion MICROSCOPIC DIAGNOSIS A. Scalp lesion, shave biopsy: Benign verrucous keratosis with focal actinic changes. Solar elastosis. B. Scalp lesion, shave biopsy: Benign verrucous keratosis with focal actinic changes. Solar elastosis. C. Scalp lesion, shave biopsy: Benign verrucous keratosis with focal actinic changes. Solar elastosis. D. Scalp lesion, punch biopsy: Atypical squamous epithelial lesion. See comment. SJ:rg 04/05/2021 COMMENT D. Correlation with clinical findings and excision of the lesion is necessary for definitive diagnosis. Case has been reviewed in consultation with Dr. Alonzo who concurs with the above diagnosis. IDC:AM MICROSCOPIC DESCRIPTION Slides are reviewed. GROSS DESCRIPTION A - Received in fixative is one container labeled with the patient's name and designated scalp. The specimen consists of a shave biopsy of arevalo-white skin measuring 0.5 x 0.5 x 0.1 cm. The specimen is inked, bisected and submitted entirely in one cassette. B - Received in fixative is one container labeled with the patient's name and designated scalp. The specimen consists of a shave biopsy of arevalo-white skin measuring 0.7 x 0.5 x 0.1 cm. The specimen is inked, bisected and submitted entirely in one cassette. C - Received in fixative is one container labeled with the patient's name and designated scalp. The specimen consists of a shave biopsy of arevalo-white skin measuring 0.5 x 0.4 x 0.1 cm. The specimen is inked, bisected and submitted entirely in one cassette. D - Received in fixative is one container labeled with the patient's name and designated scalp. The specimen consists of a punch biopsy of arevalo-white skin measuring 0.5 cm in diameter and 0.4 cm in length. The specimen is inked, bisected and submitted entirely in one cassette. / SJ:rg 04/04/2021 TC:5 CPT: 19432 x4
== END 2021-04-03 23:59 | disposition short-term general hospital (02) ==
LOC: LABSPEC 11:22
PROVIDERS: PCP Family Medicine Geriatric Medicine; Visit Provider Family Medicine Geriatric Medicine
DX: L98.9 Disorder of the skin and subcutaneous tissue, unspecified (principal)
CPT/HCPCS: 88305

== ENCOUNTER 2021-04-16 14:02 | Inpatient (IN) | payer MEDICARE, OTHER, SELFPAY ==
[2021-04-16] VITALS (10 sets, daily range): BP systolic 124–164; BP diastolic 54–107; PULSE 73–92; RESP 10–22; TEMP 36.1–37.1; O2SAT 87–99; BMI 36.1; BMI 33.5
--- NOTE | 2021-04-16 14:03 | ED.RN ---
pt atrrives via ems. ems said unresponsive. 127 bs
--- NOTE | 2021-04-16 14:10 | CM.ED ---
Social Work Responding to stroke alert. No family present. Patient asking for spouse, Nelly multiple times. Per EMS, Nelly is in route to the hospital. [place] Ray responding to Stroke Alert as well and will ashley for Nelly in triage. Per nursing staff Nelly is able to come back to patient room. Steven Stafford MSW, PAUL-S
--- NOTE | 2021-04-16 14:12 | EKG12_ITS ---
Test Reason : SEIZURE Blood Pressure : / mmHG Vent. Rate : 082 BPM Atrial Rate : 082 BPM P-R Int : 166 ms QRS Dur : 070 ms QT Int : 376 ms P-R-T Axes : 051 036 053 degrees QTc Int : 439 ms Normal sinus rhythm Low voltage QRS Confirmed by PABLO GAUJARDO, CHRIS ([id number]), continuity editor NARAYAN BARNEY ([id number]) on 04/17/2021 11:36:35 AM Referred By: RAMYA Confirmed By:CHRIS SHAH MD
--- NOTE | 2021-04-16 14:12 | RAD_ITS ---
STUDY: X-RAY CHEST REASON FOR EXAM: Male, 75 years old. Neuro deficit, acute, stroke suspected TECHNIQUE: Single AP portable view of the chest. COMPARISON: Comparison is made with prior study dated 01/05/2021. FINDINGS: EKG electrodes are seen. Since prior examination, there has been progressive bibasilar infiltrates worse at the left lung base superimposed on chronic scarring. There is no demonstrated pleural abnormality. Normal size heart. Normal mediastinum and caryn. Normal visualized pulmonary arteries. There is atherosclerotic calcification of the aortic arch with tortuosity. There are diffuse degenerative changes of the visualized thoracic spine. Normal visualized ribs, clavicles, and shoulders. There is no demonstrated abnormality of the visualized soft tissue structures of the upper abdomen. RAD/Chest 1 View IMPRESSION: Bibasilar pulmonary infiltrates worse on the left base superimposed on chronic changes. Electronically Signed: Iván Bahena MD at 14:52 EST ,
--- NOTE | 2021-04-16 14:12 | CT_ITS ---
STUDY: CT HEAD STROKE PROTOCOL W/O CONTRAST INJECTION REASON FOR EXAM: Male, 75 years old. Neuro deficit, acute, stroke suspected RADIATION DOSAGE (If Supplied By Facility): CTDIvol = ( 44.99 ) mGy, DLP = ( 812.98 ) mGycm TECHNIQUE: Transaxial CT imaging of the brain was performed without administration of intravenous contrast material. Individualized dose optimization techniques were used for this CT. COMPARISON: Comparison is made with prior study dated 03/06/2021. FINDINGS: Normal soft tissue structures. Normal calvarium. There is mild cerebral atrophy with widening of the extra-axial spaces and ventricular dilatation. There are areas of decreased attenuation within the white matter tracts of the supratentorial brain, consistent with microvascular disease changes. Normal basal ganglia and thalami. Normal brainstem. Normal cerebellum. There is no intracranial hemorrhage. There are no findings of an acute ischemic infarction. There is atherosclerotic calcification of the vertebral arteries and cavernous portions of the internal carotid arteries bilaterally. Stable retention cyst/mucosal polyps in both maxillary sinuses. CT/STROKE Brain/Head without Cont IMPRESSION: Chronic involutional changes of the brain. N.B. : The above Results were Read Back by Iván Bahena MD to MONA BUI and understanding confirmed on 04/16/2021 14:49:28 (ET). Electronically Signed: Iván Bahena MD at 14:50 EST ,
--- NOTE | 2021-04-16 14:13 | EX.ED.DYSGE1 ---
HPI History of Present Illness Chief Complaint: Neuro S/Sx Informant: patient and EMS Narrative Narrative: History is very limited at this time. Patient is initially not too cooperative. It improves while he is here. EMS was called for seizure. They were under the impression is does not have a history of seizures although we do find that history on his chart on the computer. When they arrived the patient was not at all responsive even to a sternal rub. As time is gone on he has gotten more responsive and more combative. I do not know the last known well time at this point. He has evidently had 2 seizures today but I do not know the timing of these. I do not see any seizure meds that he is currently on. There is no indication anything made his symptoms or occurrence worse. It looks like time is gone them better. Patient is really not able to tell me much. He knows he takes several meds. He denies having diabetes. He knows he has COPD. Again, history is quite limited. [facility] Medical History Alzheimer's dementia COPD (chronic obstructive pulmonary disease) COPD (chronic obstructive pulmonary disease) Hyperlipidemia Hypertension, uncontrolled Hypertensive encephalopathy Nicotine dependence Seizure TIA (transient ischemic attack) Home Medications aspirin 81 mg PO DAILY@0800 03/25/15 [History Last Taken 04/15/21] epinephrine 0.3 mg IM PRN PRN 03/25/15 [History Last Taken Unknown] filibxql-rzo-uixi fum-folic ac 1 ea PO DAILY 03/25/15 [History Last Taken 04/15/21] carvedilol 25 mg PO BID #60 tablet 03/27/15 [Rx Last Taken 04/15/21] Trelegy Ellipta 1 inh INHALATION DAILY 10/29/20 [History Last Taken 04/15/21] doxepin 10 mg PO DAILY PRN 10/29/20 [History Last Taken Unknown] donepezil 10 mg PO DAILY 03/06/21 [History Last Taken 04/15/21] atorvastatin 40 mg PO QHS #30 tab 03/07/21 [Rx Last Taken 04/15/21] memantine 10 mg PO BID 04/16/21 [History Last Taken 04/15/21] Allergy/AdvReac Type Severity Reaction Status Date / Time venom-honey bee Allergy Anaphylaxis Verified 03/06/21 07:12 [bee venom (honey bee)] Family History Mother Heart disease Social History Smoking Status: Former smoker ROS ROS ED ROS Narrative Patient denies all questions. But he does appear to be postictal and confused. Due to his current state is a consistent or accurate review of systems regarding the recent symptomatology. Neurologic Neurologic: Reports other Details: See history of present illness. EXAM Physical Exam Const Vital Signs: 04/16/21 14:05 04/16/21 14:18 04/16/21 15:57 Temperature 98.6 F Temperature Source Temporal Pulse Rate 90 89 84 Respiratory Rate 12 10 L 21 H Blood Pressure 145/80 H 124/107 H 145/72 H Blood Pressure Mean 101 112 96 Pulse Ox 98 98 98 Oxygen Delivery Method Room Air Room Air Nasal Cannula Oxygen Flow Rate (L/min) 4 04/16/21 16:33 Temperature Temperature Source Pulse Rate 81 Respiratory Rate 21 H Blood Pressure 149/87 H Blood Pressure Mean 107 Pulse Ox 95 Oxygen Delivery Method Nasal Cannula Oxygen Flow Rate (L/min) Positive well nourished, well developed and obese Constitutional Narrative: Patient is initially in leather restraints. He is combative. He can be redirected for short periods of time but then becomes a bit combative again. General Appearance ED: well developed; Negative for cyanotic or diaphoretic Nutritional Appearance: obese HEENT Reports moist mucous membranes Negative for trauma or tenderness Eyes General Eye ED: Negative for pale conjunctiva or scleral icterus Neck supple General: Negative for tenderness Chest Wall inspection of chest normal and palpation of chest normal Resp normal respiratory effort and clear to auscultation bilaterally Resp Narrative: Despite a history of COPD, he does not appear to have wheezing or dyspnea now. Effort and Inspection: Negative for pain with movement Auscultation: Negative for rales, rhonchi or wheezes Cardio regular rate and regular rhythm GI normal to inspection, nondistended, normoactive bowel sounds and non-tender Palpation: soft Back/Spine no CVA tenderness General Back: CVA tenderness Extremity normal to inspection General Extremety ED: Negative for tenderness Neuro Neuro Narrative: Patient is awake. There is no lateralizing finding. NIH stroke score is difficult to do due to cooperation. His history is also more consistent with seizure activity at this point. He is rapidly improving from where EMS found him to now. Sensation and motion is intact. There is no facial droop. He cannot tell me the year or his age at this time. However, he can tell me that Rebecca is the president. Sensorium / Orientation: alert Psych Attitude: agitated Skin no rashes or lesions noted MDM MDM MDM Narrative Medical decision making narrative: came in and was very helpful. She states that she did not think he was officially diagnosed with seizures. However, he has had episodes like this in October and February. He has been extensively evaluated. She was told that his seizures might come from low oxygen level but that he does not have anything wrong in his brain to cause a seizure. He is not on any medications for these. She states she had come home today. He was sleeping extremely soundly on the bed. He was snoring loudly. He had already urinated on himself which is not typical. She woke him up. He was a little hard to arouse. She then went to get him some coffee which he had asked for. She came back and he started shaking. She thinks his left side started shaking first and then he got very stiff and had appearance consistent with seizures. She states his right side seem to get stiffer than the left but it started on the left. This lasted for a minute or so. He was then relatively unresponsive. Evidently the patient is not on oxygen but she states he has been evaluated and probably should be. He is also supposed to use CPAP but does not use it. He has not been ill recently but has been coughing slightly. However he has not been complaining of dyspnea. Patient's blood work shows a very high white count. This could be demargination from seizures or it might be from pneumonia that is being read on his x-ray at the left base. Is a mild bump in his creatinine. Troponin is elevated 144. Again this could be partially due to renal dysfunction and somewhat due to hypoxia from either pneumonia or the seizure. Other electrolytes are overall unremarkable. Prolactin is okay. Lactic acid is elevated. Lactate could be elevated from infection or from just his seizure. CT of the head showed no acute process. X-ray did into the left base pneumonia. With his hypoxia, cough per , elevated white count we did place him on Rocephin. With elevated troponin and all the other findings I do not think going home is appropriate. We discussed this with his . Patient will be admitted. I also discussed case with the hospitalist. Lab Data Attestation: I reviewed the patient's lab results. Labs: Laboratory Results - last 24 hr 04/16/21 04/16/21 04/16/21 14:10 14:10 14:10 WBC 19.9 H RBC 5.02 Hgb 14.4 Hct 42.7 MCV 85.1 MCH 28.7 MCHC 33.7 RDW Std Deviation 47.6 H RDW Coeff of Mike 15.6 H Plt Count 205 MPV 11.6 Immature Gran % (Auto) 1.600 H Neut % (Auto) 83.3 H Lymph % (Auto) 8.4 L Clinton % (Auto) 6.4 Eos % (Auto) 0.1 Baso % (Auto) 0.2 Absolute Neuts (auto) 16.6 H Absolute Lymphs (auto) 1.66 Nucleated RBC % 0 PT Cancelled INR Cancelled APTT Cancelled Sodium 135 L Potassium 4.3 Chloride 99 Carbon Dioxide 23.0 Anion Gap 13 BUN 13 Creatinine 1.44 H Estim Creat Clear Calc 43.64 Est GFR (MDRD) Af Amer 61 Est GFR (MDRD) Non-Af 51 L BUN/Creatinine Ratio 9.0 L Glucose 188 H Lactic Acid Calcium 8.7 Troponin I High Sens 144 H* Prolactin 04/16/21 04/16/21 04/16/21 14:10 15:00 15:36 WBC RBC Hgb Hct MCV MCH MCHC RDW Std Deviation RDW Coeff of Mike Plt Count MPV Immature Gran % (Auto) Neut % (Auto) Lymph % (Auto) Clinton % (Auto) Eos % (Auto) Baso % (Auto) Absolute Neuts (auto) Absolute Lymphs (auto) Nucleated RBC % PT 13.1 INR 1.1 APTT 29.3 Sodium Potassium Chloride Carbon Dioxide Anion Gap BUN Creatinine Estim Creat Clear Calc Est GFR (MDRD) Af Amer Est GFR (MDRD) Non-Af BUN/Creatinine Ratio Glucose Lactic Acid 2.8 H* Calcium Troponin I High Sens Prolactin 11.4 Radiography Diagnostic Testing: Clinical Impression(s) from Imaging Studies Brain CT 04/16/21 14:12 IMPRESSION: Chronic involutional changes of the brain. N.B. : The above Results were Read Back by Iván Bahena MD to MONA BUI and understanding confirmed on 04/16/2021 14:49:28 (ET). Electronically Signed: Iván Bahena MD at 14:50 EST , Chest X-Ray 04/16/21 14:12 IMPRESSION: Bibasilar pulmonary infiltrates worse on the left base superimposed on chronic changes. Electronically Signed: Iván Bahena MD at 14:52 EST , EKG Initial EKG: Comments: EKG done as part of medical work-up read by me shows sinus rhythm with overall rate of 82. No ectopy. No acute ST elevation or depression although there is some baseline variation and motion artifact. MI interval, QRS duration and QTc normal. This is overall similar to 06 March 2021. Discharge Plan Triage Chief Complaint: Neuro S/Sx ED Provider: Mona Bui Dx/Rx/DC Orders Clinical Impression: New onset seizure, Community acquired pneumonia, Acute respiratory failure with hypoxia, Elevated troponin Prescriptions: No Action aspirin 81 MG tablet,chewable 81 mg PO DAILY@0800 RF: 0 epinephrine 0.3 MG syringe 0.3 mg IM PRN PRN (Reason: Anaphylaxis) RF: 0 fjuenpvk-qoy-jxme fum-folic ac 1 EACH tablet 1 ea PO DAILY RF: 0 carvedilol 25 MG tablet 25 mg PO BID Qty: 60 RF: 0 doxepin 10 mg Capsule 10 mg PO DAILY PRN (Reason: MOOD) RF: 0 Trelegy Ellipta 200-62.5-25 mcg Blister With Device 1 inh INHALATION DAILY RF: 0 donepezil 10 mg tablet 10 mg PO DAILY RF: 0 atorvastatin 40 mg tablet 40 mg PO QHS Qty: 30 RF: 1 memantine 10 mg tablet 10 mg PO BID RF: 0 Primary Care Provider: Abundio Forrester Chi Referrals: Abundio Forrester Chi, MD [Primary Care Provider] - Disposition Disposition: Acute Care Hospital [facility]
[2021-04-16] MEDS: LORazepam 2 MG/ML Syringe 1 MG IV (14:17)
[2021-04-16 14:23] LABS: Absolute Lymphocyte Count 1.66 X10^3/uL (0.83-4.51); Absolute Neutrophil Count 16.6 X10^3/uL (2.0-7.7); Basophil# 0.04 X10^3/uL; Basophil% 0.2 % (0-1); Eosinophil# 0.02 X10^3/uL; Eosinophils% 0.1 % (0-5); Hematocrit 42.7 % (40-54); Hemoglobin 14.4 g/dL (13.0-16.5); Lymphocyte # 1.66 X10^3/ul (0.83-4.51); Lymphocyte % 8.4 % (19-41); Mean Corp Hgb Conc 33.7 g/dL (32-36); Mean Corpuscular Hgb 28.7 pg (27.0-32.0); Mean Corpuscular Volume 85.1 fL (80-94); Mean Platelet Vol. 11.6 fl (6.2-12.0); Monocyte# 1.27 X10^3/uL; Monocyte% 6.4 % (0-10); NRBC Flagged by Analyzer 0 % (0-5); Neutrophil # 16.55 X10^3/uL (2.7-7.7); Neutrophil % 83.3 % (47-70); Platelet Count 205 K/mm3 (150-450); RBC Distribution Width CV 15.6 % (11.6-14.6); RBC Distribution Width SD 47.6 fl (35.1-43.9); Red Blood Count 5.02 M/mm3 (4.6-6.2); White Blood Count 19.9 K/mm3 (4.4-11.0)
[2021-04-16 14:50] LABS: Anion Gap 13 (5-15); BUN 13 mg/dL (7-18); Calcium,Total 8.7 mg/dL (8.5-10.1); Chloride 99 mmol/L (98-107); Creatinine, Serum 1.44 mg/dL (0.70-1.30); EST Glomerular Filtration Rate 51 mL/min (>60); Est Glom Filt Rate - Afr Amer 61 mL/min (>60); Estimated Creatinine Clearance 43.64 ml/min; Glucose 188 mg/dL (74-106); Potassium 4.3 mmol/L (3.5-5.1); Sodium Level 135 mmol/L (136-145); Troponin-I HS 144 pg/mL (3.0-78.0)
--- NOTE | 2021-04-16 15:04 | CHAPLAIN ---
Type of Pastoral Visit ___ Initial Visit ___ Follow-up Visit ___ On-call Visit ___ General Patient Visit ___ Spiritual Assessment ___ Family Conference ___ Bereavement _x__ Rapid Response ___ Code Blue ___ Other (describe below) Pastoral Care Referral From ___ Patient ___ Family ___ Nurse ___ Physician ___ Litigation Examiner ___ Research Contracts Supervisor _x__ Other (describe below) Sacrament/Intervention ___ Active listening ___ Anointing ___ Presybeterian ___ Bereavement ___ Communion ___ Pat exploration ___ ___ Life review ___ Prayer ___ Reconciliation ___ Sacrament of Sick _x__ Supportive presence ___ Wedding ___ Other (describe below) Pastoral Comments came to a rapid response; patient was being tended to by medical team; waited for spouse of patient to arrive and then escorted her to room; offered support and concern
[2021-04-16 15:22] LABS: International Normalized Ratio 1.1; Partial Thromboplast Time 29.3 Seconds (24.1-36.2); Prothrombin Time (Protime)PT. 13.1 SECONDS (11.7-14.9)
[2021-04-16 15:32] LABS: Prolactin 11.4 ng/mL
[2021-04-16] MEDS: Ceftriaxone 1 GM/50 ML BAG IV (15:48)
[2021-04-16] MEDS: Ipratropium/Albuterol Sulfate 3 ML AMPUL.NEB INHALATION ×2 (15:54→22:56)
--- NOTE | 2021-04-16 16:22 | ED.RN ---
NIHSS DC'D PER MD. PT'S EPISODES ARE SUSPECTED TO BE SEIZURES
[2021-04-16 16:28] LABS: Lactic Acid 2.8 mmol/L (0.4-1.9)
--- NOTE | 2021-04-16 17:31 | ED.RN ---
Notified MD Rush of positive Sepsis Screen. no no new orders received at this time
--- NOTE | 2021-04-16 17:47 | PCM.HP.STD ---
Documented by User: CHAD Hernandez 04/16/21 18:07 HPI - General General Date of Admission: 04/16/21 Date of Service: 04/16/21 HPI Narrative CHRIS CERVANTES, is a 75 M who presents secondary to unresponsive episodes at home. is at the bedside and states patient has had 2 episodes where he has been drowsy and hard to arouse with the second episode patient was completely unresponsive. Patient has been seen in October and February for similar episodes and has been worked up extensively for possible seizure disorder but was not started on any antiepileptics at that time. notes that during the second episode she witnessed the patient gets stiff and shake. Patient continues to be lethargic upon evaluation however he does arouse and answer some basic yes or no questions. Patient reports that he has a medical history that includes dementia, COPD, hypertension. [facility] Medical History (Updated 04/16/21 @ 17:57 by CHAD Hernandez) Alzheimer's dementia Asthma COPD (chronic obstructive pulmonary disease) COPD (chronic obstructive pulmonary disease) Former smoker Hyperlipidemia Hypertension Hypertension, uncontrolled Hypertensive encephalopathy Nicotine dependence Seizure Sleep apnea TIA (transient ischemic attack) Home Medications aspirin 81 mg PO DAILY@0800 03/25/15 [History Last Taken 04/15/21] epinephrine 0.3 mg IM PRN PRN 03/25/15 [History Last Taken Unknown] tzuchkhy-gpw-onrp fum-folic ac 1 ea PO DAILY 03/25/15 [History Last Taken 04/15/21] carvedilol 25 mg PO BID #60 tablet 03/27/15 [Rx Last Taken 04/15/21] Trelegy Ellipta 1 inh INHALATION DAILY 10/29/20 [History Last Taken 04/15/21] doxepin 10 mg PO DAILY PRN 10/29/20 [History Last Taken Unknown] donepezil 10 mg PO DAILY 03/06/21 [History Last Taken 04/15/21] atorvastatin 40 mg PO QHS #30 tab 03/07/21 [Rx Last Taken 04/15/21] memantine 10 mg PO BID 04/16/21 [History Last Taken 04/15/21] Allergy/AdvReac Type Severity Reaction Status Date / Time venom-honey bee Allergy Anaphylaxis Verified 03/06/21 07:12 [bee venom (honey bee)] Family History Mother Heart disease Social History Smoking Status: Former smoker ROS Constitutional Constitutional: Denies anorexia, chills, fatigue, fever(s), malaise or weakness Cardiovascular Cardiovascular: Denies chest pain, edema, orthopnea or syncope Respiratory/Chest Respiratory/Chest: Reports change in mental status and snoring Gastrointestinal Gastrointestinal: Denies abdominal pain, constipation, diarrhea, nausea or vomiting Genitourinary Genitourinary: Denies dysuria Musculoskeletal Musculoskeletal: Denies back pain, extremity pain, joint pain or joint stiffness Integumentary Integumentary: Denies dry skin Neurologic Neurologic: Reports confusion and seizures Psychiatric Psychiatric: Denies anxiety or depression Endocrine Endocrinology: Denies change in body appearance Hematologic/Lymphatic Hematologic/Lymphatic: Denies anemia Vital Signs Vital Signs Vital Signs: 04/16/21 14:05 04/16/21 14:18 04/16/21 15:57 Temperature 98.6 F Temperature Source Temporal Pulse Rate 90 89 84 Respiratory Rate 12 10 L 21 H Blood Pressure 145/80 H 124/107 H 145/72 H Blood Pressure Mean 101 112 96 Pulse Ox 98 98 98 Oxygen Delivery Method Room Air Room Air Nasal Cannula Oxygen Flow Rate (L/min) 4 04/16/21 16:33 04/16/21 17:16 04/16/21 17:22 Temperature 98.8 F Temperature Source Temporal Pulse Rate 81 88 92 Respiratory Rate 21 H 22 H 18 Blood Pressure 149/87 H 164/54 H 154/64 H Blood Pressure Mean 107 90 94 Pulse Ox 95 95 97 Oxygen Delivery Method Nasal Cannula Nasal Cannula Nasal Cannula Oxygen Flow Rate (L/min) Weight Weight: 244 lb 11.41 oz Body Mass Index (BMI) 36.1 Physical Exam Const alert, oriented x3 and no apparent distress General Appearance: cooperative HEENT normocephalic and head/scalp atraumatic Eyes conjunctivae normal and no scleral icterus Neck no lymphadenopathy and supple General: trachea midline Resp normal respiratory effort and normal air movement Auscultation: wheezes scattered wheezes Cardio regular rate, regular rhythm, S1 normal heart sound, S2 normal heart sound and peripheral pulses 2+ throughout GI normal to inspection, nondistended, normoactive bowel sounds, soft to palpation and non-tender Extremity normal capillary refill and no clubbing, cyanosis or edema General Extremity: no tenderness to palpation of joints or extremities Skin General Skin Exam: no breakdown and turgor normal Lesions: no lesions Rashes: no rashes Neuro moves all extremities Sensorium / Orientation: confused and lethargic Psych Activity / Motor Behavior: restless Mood & Affect: anxious Results Lab / Micro Data Result Diagrams: 04/16/21 14:10 04/16/21 14:10 Labs: Laboratory Results - last 24 hr 04/16/21 14:10: WBC 19.9 H, RBC 5.02, Hgb 14.4, Hct 42.7, MCV 85.1, MCH 28.7, MCHC 33.7, RDW Std Deviation 47.6 H, RDW Coeff of Mike 15.6 H, Plt Count 205, MPV 11.6, Immature Gran % (Auto) 1.600 H, Neut % (Auto) 83.3 H, Lymph % (Auto) 8.4 L, Wilkin % (Auto) 6.4, Eos % (Auto) 0.1, Baso % (Auto) 0.2, Absolute Neuts (auto) 16.6 H, Absolute Lymphs (auto) 1.66, Nucleated RBC % 0 04/16/21 14:10: PT Cancelled, INR Cancelled, APTT Cancelled 04/16/21 14:10: Sodium 135 L, Potassium 4.3, Chloride 99, Carbon Dioxide 23.0, Anion Gap 13, BUN 13, Creatinine 1.44 H, Estim Creat Clear Calc 43.64, Est GFR (MDRD) Af Amer 61, Est GFR (MDRD) Non-Af 51 L, BUN/Creatinine Ratio 9.0 L, Glucose 188 H, Calcium 8.7, Troponin I High Sens 144 H* 04/16/21 14:10: Prolactin 11.4 04/16/21 15:00: PT 13.1, INR 1.1, APTT 29.3 04/16/21 15:36: Lactic Acid 2.8 H* Micro: Microbiology 04/16/21 15:45 Nasal Secretion SARS-CoV-2 Antigen (Rapid) - Final Radiology Impression Brain CT 04/16/21 14:12 IMPRESSION: Chronic involutional changes of the brain. N.B. : The above Results were Read Back by Iván Bahena MD to MONA BUI and understanding confirmed on 04/16/2021 14:49:28 (ET). Electronically Signed: Iván Bahena MD at 14:50 EST , Chest X-Ray 04/16/21 14:12 IMPRESSION: Bibasilar pulmonary infiltrates worse on the left base superimposed on chronic changes. Electronically Signed: Iván Bahena MD at 14:52 EST , Assessment & Plan Assessment/Plan (1) Elevated troponin: (2) Acute respiratory failure with hypoxia: (3) New onset seizure: (4) Community acquired pneumonia: QUALIFIERS: Laterality: right Lung location: lower lobe of lung Qualified Code(s): J18.9 - Pneumonia, unspecified organism PLAN: 1. New onset seizures -Admit to PCU -Patient ordered loading dose of Keppra x1 then Keppra 500 mg twice daily -Seizure precautions ordered -PT and OT to eval and treat -CBC, BMP, mag, Phos ordered for a.m. -As needed Ativan 2 mg IV ordered for seizures 2. Acute respiratory failure with hypoxia secondary to community-acquired pneumonia -Oxygen therapy per protocol, 4 L nasal cannula oxygen currently -Patient received ceftriaxone in ER will continue ceftriaxone and add azithromycin IV -Scheduled duo nebs and as needed albuterol nebulizer treatments ordered -P.o. Mucinex once patient is alert enough to take p.o. medications -Sputum culture ordered, blood cultures pending -Encourage incentive spirometry -Repeat chest PA and LAT tomorrow morning 3. Elevated troponin -Will trend cardiac enzymes however this is likely result of increased cardiac demand secondary to pneumonia and seizures 4. Elevated creatinine -BMP daily -Normal saline at 75 mL/h -Intake and output 5. Dementia -Continue patient's home medication regimen of scheduled donepezil and memantine as well as as needed doxepin -As needed Ativan 1 mg ordered for restlessness/sleep DVT Prophylaxis-subcu Lovenox This patient was seen by CHAD Hernandez under the supervision of Dr. Argueta. 31 minutes spent in clinical coordination of patient's plan of care. Documented by User: Dr. Tavares Argueta, 04/16/21 19:25 HPI - General General Date of Admission: 04/16/21 [facility] Medical History (Updated 04/16/21 @ 17:57 by Mamie Mancini NP-C) Alzheimer's dementia Asthma COPD (chronic obstructive pulmonary disease) COPD (chronic obstructive pulmonary disease) Former smoker Hyperlipidemia Hypertension Hypertension, uncontrolled Hypertensive encephalopathy Nicotine dependence Seizure Sleep apnea TIA (transient ischemic attack) Home Medications aspirin 81 mg PO DAILY@0800 03/25/15 [History Last Taken 04/15/21] epinephrine 0.3 mg IM PRN PRN 03/25/15 [History Last Taken Unknown] tzdzewyn-xwf-yzxf fum-folic ac 1 ea PO DAILY 03/25/15 [History Last Taken 04/15/21] carvedilol 25 mg PO BID #60 tablet 03/27/15 [Rx Last Taken 04/15/21] Trelegy Ellipta 1 inh INHALATION DAILY 10/29/20 [History Last Taken 04/15/21] doxepin 10 mg PO DAILY PRN 10/29/20 [History Last Taken Unknown] donepezil 10 mg PO DAILY 03/06/21 [History Last Taken 04/15/21] atorvastatin 40 mg PO QHS #30 tab 03/07/21 [Rx Last Taken 04/15/21] memantine 10 mg PO BID 04/16/21 [History Last Taken 04/15/21] Allergy/AdvReac Type Severity Reaction Status Date / Time venom-honey bee Allergy Anaphylaxis Verified 03/06/21 07:12 [bee venom (honey bee)] Family History Mother Heart disease Social History Smoking Status: Former smoker Results Lab / Micro Data Result Diagrams: 04/16/21 14:10 04/16/21 14:10 Charges/Coding Addendum Addendum: Patient was seen and examined independently of Aaron Parra, he was brought to the emergency room today by squad at the direction of his due to possible seizure activity at home, patient was on the couch snoring and then had what was described as shaking on his left and right sides, patient has had a history in the past of possible seizure disorder but was not placed on any medications. This episode at home was followed by the patient being unresponsive for time, he then became awake and was combative. Patient's known medical problems include COPD. Patient was given Ativan 1 mg IV push due to agitation in the emergency room. On examination he appeared older than his stated age, he appeared lethargic and responded to painful stimuli only by withdrawing. He does not appear to be in any distress at this time. Vital signs as documented. Skin warm and dry and without overt rashes. Neck without JVD, neck was supple, trachea midline, thyroid was normal. Lungs clear bilaterally, normal air movement was noted. Heart exam notable for regular rhythm, normal sounds and absence of murmurs, rubs or gallops. Abdomen unremarkable and without evidence of organomegaly, masses, or abdominal aortic enlargement. Bowel sounds are present, abdomen is not distended. Extremities nonedematous, no cyanosis was noted, no clubbing was noted. Neuro: Cranial nerves II through XII are grossly intact, patient does not respond to verbal stimuli, he responds to painful stimuli by withdrawing. He exhibits no posturing. Psych: Patient is somnolent, he responds to painful stimuli but not verbal stimuli Work-up in the emergency room included labs which revealed an elevated white blood cell count at 19.9, chemistry profile showed an elevated creatinine at 1.4 and a sodium of 135, patient's lactic acid was 2.8, glucose was 188. Patient's brain CT showed chronic involutional changes of the brain, patient's chest x-ray showed bibasilar pulmonary infiltrates worse on the left superimposed on chronic changes. Impression: #1 new onset seizure disorder-patient will be placed on IV Keppra, he will be admitted to PCU, he may need to be seen by teleneurology. #2 bibasilar pulmonary infiltrates-suggestive of possible community-acquired pneumonia, patient will be placed on Rocephin and Zithromax, he received a dose of Rocephin in the emergency room. #3 dementia-I did not speak with the patient's , this will complicate care, prognosis, and recovery. He is currently on Aricept and memantine #4 chronic obstructive pulmonary disease-by history, patient was placed on aerosol treatments #5 hypoxia-this could be secondary either to a postictal state or IV Ativan, patient is currently on 2 L of oxygen, pulse ox will be monitored #6 essential hypertension-patient is on carvedilol #7 hyperlipidemia-patient is on atorvastatin I have reviewed Tiffanie Mancini's history and physical including her medical assessment and plan of care and with the above additions endorse it. Total clinical time spent by myself on reviewing the patient's medical record, addressing the patient's medical issues, collaborating with the patient's care team, and examining the patient: 40 minutes. Visit Charges Inpatient E&M: 01503 Init Hosp L3
[2021-04-16 17:56] LABS: Troponin-I HS 231 pg/mL (3.0-78.0)
--- NOTE | 2021-04-16 18:03 | CASEMGMT ---
RN CM Assessment Patient with AMS, called patient Nelly and introduced role of RN CM. Patient Nelly agreed to participate in RN CM Assessment. Care providers, pharmacy, and demographics verified. Admit Dx: PNA, Seizure Re-Admit: No. OBS 03/06-03/07/21 for TIA Barriers/Issues: None PCP: Abundio Forrester Specialists: Was supposed to see neurosurgeon but has not yet Preferred Pharmacy: [facility] or [facility] Insurance: [employer] A/B, Rx Benefit: Yes, [employer] LNOK: Nelly Hare LW/HPOA: Per , patient has completed a HPOA and she is primary HPOA. Living Arrangements: Lives with in a 2SH, has ground level set up. 2 steps with rails to enter but also has a ramp. ADL?s: Independent with ambulation and ADLs Transportation: Patient does not drive. drives. DME: [place]- patient does not use HHC: None SNF: None Goal: Home and does not think will have any needs, issues, or concerns when going home. DC PLAN: Home with no anticipated needs identified at this time. F/u mobility at DC. Per - believes patient would be open to HH if needed/recommended. Jeanna Irene RNCM
[2021-04-16] MEDS: 0.9% Normal Saline 1,000 ML 75 ML IV (18:36)
[2021-04-16] MEDS: levETIRAcetam IV 1,000 MG/100 ML BAG 400 MG IV (18:50)
[2021-04-16 19:44] LABS: Reflex Lactate? Y
[2021-04-16] MEDS: Carvedilol 25 MG Tablet PO (20:25)
[2021-04-16] MEDS: Donepezil HCl 10 MG Tablet PO (20:25)
[2021-04-16] MEDS: guaiFENesin 1,200 MG Tablet 1200 MG PO (20:25)
[2021-04-16] MEDS: Atorvastatin Calcium 40 MG Tablet PO (20:25)
[2021-04-16] MEDS: Memantine Hydrochloride 10 MG Tablet PO (20:25)
[2021-04-16 21:36] LABS: Troponin-I HS 236 pg/mL (3.0-78.0)
[2021-04-16] MEDS: Budesonide Respules 0.5 MG/2 ML AMPUL.NEB. INHALATION (22:55)
--- NOTE | 2021-04-16 22:55 | CPS ---
Placed Pt on O2 at 3 LPM nasal cannula
[2021-04-17 02:25] VITALS: BP 102/51; PULSE 70; RESP 16; TEMP 36.6; O2SAT 97
[2021-04-17 03:28] VITALS: PULSE 69
[2021-04-17 05:29] LABS: Absolute Lymphocyte Count 1.11 X10^3/uL (0.83-4.51); Absolute Neutrophil Count 7.6 X10^3/uL (2.0-7.7); Basophil# 0.02 X10^3/uL; Basophil% 0.2 % (0-1); Eosinophil# 0.02 X10^3/uL; Eosinophils% 0.2 % (0-5); Hematocrit 37.4 % (40-54); Hemoglobin 12.2 g/dL (13.0-16.5); Lymphocyte # 1.11 X10^3/ul (0.83-4.51); Lymphocyte % 11.5 % (19-41); Mean Corp Hgb Conc 32.6 g/dL (32-36); Mean Corpuscular Hgb 28.6 pg (27.0-32.0); Mean Corpuscular Volume 87.8 fL (80-94); Mean Platelet Vol. 11.3 fl (6.2-12.0); Monocyte# 0.83 X10^3/uL; Monocyte% 8.6 % (0-10); NRBC Flagged by Analyzer 0 % (0-5); Neutrophil # 7.63 X10^3/uL (2.7-7.7); Neutrophil % 78.8 % (47-70); Platelet Count 129 K/mm3 (150-450); RBC Distribution Width CV 15.6 % (11.6-14.6); RBC Distribution Width SD 49.6 fl (35.1-43.9); Red Blood Count 4.26 M/mm3 (4.6-6.2); White Blood Count 9.7 K/mm3 (4.4-11.0)
[2021-04-17 05:30] VITALS: BP 112/53; PULSE 67; RESP 16; TEMP 36.7; O2SAT 95
--- NOTE | 2021-04-17 05:59 | RAD_ITS ---
STUDY: X-RAY CHEST REASON FOR EXAM: Male, 75 years old. Pneumonia-486 TECHNIQUE: PA and lateral views of the chest. COMPARISON: 04/16/2021 FINDINGS: Poor inspiration with some bibasilar atelectasis. There is no demonstrated pleural abnormality. Normal size heart. Normal mediastinum and caryn. Normal visualized pulmonary arteries. Normal visualized aortic arch and descending thoracic aorta. Normal visualized thoracic spine. Normal visualized ribs, clavicles, and shoulders. There is no demonstrated abnormality of the visualized soft tissue structures of the upper abdomen. RAD/Chest PA and Lateral IMPRESSION: Poor inspiration with bibasilar atelectasis. Electronically Signed: Jorge Aquino MD at 8:00 EST ,
[2021-04-17 06:06] LABS: Anion Gap 5 (5-15); BUN 11 mg/dL (7-18); BUN/Creat Ratio 10.7 RATIO (10-20); Calcium,Total 8.3 mg/dL (8.5-10.1); Chloride 105 mmol/L (98-107); Creatinine, Serum 1.03 mg/dL (0.70-1.30); EST Glomerular Filtration Rate 75 mL/min (>60); Est Glom Filt Rate - Afr Amer 90 mL/min (>60); Estimated Creatinine Clearance 61.01 ml/min; Glucose 139 mg/dL (74-106); Phosphorus 3.4 mg/dL (2.5-4.9); Potassium 3.6 mmol/L (3.5-5.1); Sodium Level 139 mmol/L (136-145)
[2021-04-17] MEDS: 0.9% Normal Saline 1,000 ML 75 ML IV (06:08)
[2021-04-17 06:58] VITALS: PULSE 68
[2021-04-17] MEDS: Aspirin 81 MG TAB.CHEW PO (10:06)
[2021-04-17] MEDS: lamoTRIgine 25 MG Tablet PO (10:06)
[2021-04-17] MEDS: guaiFENesin 1,200 MG Tablet 1200 MG PO (10:06)
[2021-04-17] MEDS: Memantine Hydrochloride 10 MG Tablet PO (10:07)
[2021-04-17] MEDS: Carvedilol 25 MG Tablet PO (10:07)
[2021-04-17 10:27] VITALS: BP 111/69; PULSE 72; RESP 18; TEMP 36.8; O2SAT 93
[2021-04-17 10:30] VITALS: O2SAT 92; O2SAT 93
--- NOTE | 2021-04-17 10:36 | PCM.DC ---
Discharge Instructions Diet Discharge Diet: No restrictions Activity Discharge Activity: Return to Normal Activity Weight Bearing Status: Weight bearing as tolerated Additional Activity Instructions:: Continue to NOT drive. Dressing / Incision Call your doctor if you observe: Fever of 101 or Higher, Numbness or Tingling, Shortness of breath, Dizziness, Chest pain, Increased palpitations (irregular heartbeat) and Calf discomfort Follow Up Care Please Follow Up With: Primary care provider When: Within the next two weeks. Test Results: Test results from this visit will be discussed in further detail at your follow-up appointment, if applicable. Discharge Plan Admission Admit Date/Time: 04/16/21 17:33 Primary Reason for Your Visit: Seizure activity Attending Provider: Cece Bullard Primary Care Provider: Abundio Forrester Chi Instructions Additional Instructions / Restrictions: * Take 25mg (1 tablet) once daily for 2 weeks, then take 25mg (1 tablet) twice daily for 2 weeks, then take 50mg (2 tablets) twice daily until your follow up appointment with the Neurologist. * Continue to NOT drive. * Proceed with your scheduled Neurology appointment on May 21, 2021. Discharge Orders/Prescriptions Prescriptions: New lamotrigine 25 mg Tablet, Chewable Dispersible 25 mg PO DAILY Qty: 98 RF: 0 Continued aspirin 81 MG tablet,chewable 81 mg PO DAILY@0800 RF: 0 epinephrine 0.3 MG syringe 0.3 mg IM PRN PRN (Reason: Anaphylaxis) RF: 0 [id number] fum-folic ac 1 EACH tablet 1 ea PO DAILY RF: 0 carvedilol 25 MG tablet 25 mg PO BID Qty: 60 RF: 0 doxepin 10 mg Capsule 10 mg PO DAILY PRN (Reason: MOOD) RF: 0 Trelegy Ellipta 200-62.5-25 mcg Blister With Device 1 inh INHALATION DAILY RF: 0 donepezil 10 mg tablet 10 mg PO DAILY RF: 0 atorvastatin 40 mg tablet 40 mg PO QHS Qty: 30 RF: 1 memantine 10 mg tablet 10 mg PO BID RF: 0 Referrals / Follow Up: Talib Manriquez MD [STAFF PHYSICIAN] - See Referral Note (Proceed with your scheduled appointment. ) Abundio Forrester Chi, MD [Primary Care Provider] - Within 2 Weeks Disposition Disposition (needs filled in before D/C Order can be placed): Home, Self Care
--- NOTE | 2021-04-17 10:37 | CASEMGMT ---
Addendum entered by Vangie Littlejohn 04/17/21 11:35: Per therapy, pt has no further need for therapy at discharge. This RN CM to room and pt/ voice no concerns with going home at discharge and voice no further questions/concerns/needs. Fam LILLY CM Original Note: Per Dionte RN, pt does not qualify for home oxygen. CM awaiting therapy evals. Fam LILLY CM
--- NOTE | 2021-04-17 14:27 | DS.PCM_ITS ---
Documented by User: Bronson ONEILL 04/17/21 14:34 Providers Date of Admission: 04/16/21 Primary Care Physician: Dr. Abundio Forrester MD Reason For Visit: SEIZURES, PNA Diagnosis Discharge Diagnosis (1) Elevated troponin: Status: Acute Code(s): R77.8 - Other specified abnormalities of plasma proteins (2) Acute respiratory failure with hypoxia: Status: Acute Code(s): J96.01 - Acute respiratory failure with hypoxia (3) New onset seizure: Status: Acute Code(s): R56.9 - Unspecified convulsions (4) Community acquired pneumonia: Status: Acute Code(s): J18.9 - Pneumonia, unspecified organism Qualifiers: Laterality: right Lung location: lower lobe of lung Qualified Code(s): J18.9 - Pneumonia, unspecified organism Medications at Discharge Home Medications aspirin 81 mg PO DAILY@0800 03/25/15 epinephrine 0.3 mg IM PRN PRN 03/25/15 [id number]-gnr-jybb fum-folic ac 1 ea PO DAILY 03/25/15 carvedilol 25 mg PO BID #60 tablet 03/27/15 Trelegy Ellipta 1 inh INHALATION DAILY 10/29/20 doxepin 10 mg PO DAILY PRN 10/29/20 donepezil 10 mg PO DAILY 03/06/21 atorvastatin 40 mg PO QHS #30 tab 03/07/21 memantine 10 mg PO BID 04/16/21 lamotrigine 25 mg PO DAILY #98 ea 04/17/21 Hospital Course Summary of Care Provided Minutes Spent on Discharge: 20 Hospital Course: Patient is a 75-year-old male who was admitted to [facility] on 04/16/2021 for evaluation and management of seizure-like activity. Patient was initiated on a loading dose of Keppra and then oral chaya men was initiated. SOC consult obtained and would like patient to be initiated on Lamictal 25 mg daily for 2 weeks, then transition to 25 mg twice daily for 2 weeks then continued on 50 mg twice daily thereafter. Patient already has a scheduled appointment with Dr. Manriquez for an outpatient neurology follow-up, and is to proceed with that as scheduled on May 21, 2021. Lamictal was initiated at SOC recommendations, and patient was instructed not to drive, although informs provider that patient has not driven for several years. There was some concern for community-acquired pneumonia on admission, although patient's respiratory status was unremarkable at the time of my evaluation and updated chest x-ray did not demonstrate any concern for infiltrates. Antibiotics were discontinued and patient is to follow-up with primary care provider in the next 2 weeks. Patient seen by Bronson Mensah PA-C, under the supervision of Dr. Bullard. Time spent on patient care: 20 minutes. Physical Exam Narrative Patient is a 75-year-old male lying in bed, alert and oriented to self. She cannot provide much insight to current condition due to chronic confusion at baseline secondary to dementia. Does not appear in acute distress. Const alert and no apparent distress HEENT normocephalic, head/scalp atraumatic and hearing grossly normal bilaterally Eyes PERRL and conjunctivae normal Neck no lymphadenopathy, supple and no JVD Resp normal respiratory effort, no retractions and no use of accessory muscles Cardio regular rate, regular rhythm and no JVD GI normal to inspection, nondistended, normoactive bowel sounds and soft to pal pation Extremity normal to inspection, full ROM and no clubbing, cyanosis or edema Skin no rashes or lesions noted, no wounds and skin turgor normal Neuro CN's II-XII intact bilaterally Psych affect normal Weight / BMI Weight Weight: 227 lb 1.6 oz Body Mass Index (BMI) 33.5 ABG / Lab / Microbiology Data Result Diagrams: 04/17/21 05:16 04/17/21 05:16 Laboratory: Laboratory Results - last 24 hr 04/16/21 14:10: PT Cancelled, INR Cancelled, APTT Cancelled 04/16/21 14:10: Sodium 135 L, Potassium 4.3, Chloride 99, Carbon Dioxide 23.0, Anion Gap 13, BUN 13, Creatinine 1.44 H, Estim Creat Clear Calc 43.64, Est GFR (MDRD) Af Amer 61, Est GFR (MDRD) Non-Af 51 L, BUN/Creatinine Ratio 9.0 L, Gl ucose 188 H, Calcium 8.7, Troponin I High Sens 144 H* 04/16/21 14:10: Prolactin 11.4 04/16/21 15:00: PT 13.1, INR 1.1, APTT 29.3 04/16/21 15:36: Lactic Acid 2.8 H* 04/16/21 17:20: Troponin I High Sens 231 H* 04/16/21 20:40: Troponin I High Sens 236 H* 04/16/21 20:40: Lactic Acid 1.0 04/17/21 05:16: WBC 9.7, RBC 4.26 L, Hgb 12.2 L, Hct 37.4 L, MCV 87.8, MCH 28.6, MCHC 32.6, RDW Std Deviation 49.6 H, RDW Coeff of Mike 15.6 H, Plt Count 129 L, MPV 11.3, Immature Gran % (Auto) 0.700, Neut % (Auto) 78.8 H, Lymph % (Auto) 11.5 L, Grimes % (Auto) 8.6, Eos % (Auto) 0.2, Baso % (Auto) 0.2, Absolute Neuts (auto) 7.6, Absolute Lymphs (auto) 1.11, Nucleated RBC % 0 04/17/21 05:16: Sodium 139, Potassium 3.6, Chloride 105, Carbon Dioxide 29.0, Anion Gap 5, BUN 11, Creatinine 1.03, Estim Creat Clear Calc 61.01, Est GFR (MDRD) Af Amer 90, Est GFR (MDRD) Non-Af 75, BUN/Creatinine Ratio 10.7, Glucose 139 H, Calcium 8.3 L, Phosphorus 3.4, Magnesium Cancelled Microbiology: Microbiology 04/16/21 15:45 Nasal Secretion SARS-CoV-2 Antigen (Rapid) - Final Radiography Diagnostic Testing: Radiology Impression Brain CT 04/16/21 14:12 IMPRESSION: Chronic involutional changes of the brain. N.B. : The above Results were Read Back by Iván Bahena MD to MONA BUI and understanding confirmed on 04/16/2021 14:49:28 (ET). Electronically Signed: Iván Bahena MD at 14:50 EST , Chest X-Ray 04/16/21 14:12 IMPRESSION: Bibasilar pulmonary infiltrates worse on the left base superimposed on chronic changes. Electronically Signed: Iván Bahena MD at 14:52 EST , Chest X-Ray 04/17/21 05:59 IMPRESSION: Poor inspiration with bibasilar atelectasis. Electronically Signed: Jorge Aquino MD at 8:00 EST , D/C Instructions Discharge Diet: No restrictions Weight Bearing Status: Weight bearing as tolerated Additional Activity Instructions: Continue to NOT drive. Call your doctor if you observe: Fever of 101 or Higher, Numbness or Tingling, Shortness of breath, Dizziness, Chest pain, Increased palpitations (irregular heartbeat) and Calf discomfort Please Follow Up With: Primary care provider When: Within the next two weeks. Meaningful Use Info Meaningful Use Diagnoses (Choose all that apply): None applicable Discharge Plan Admission Admit Date/Time: 04/16/21 17:33 Primary Reason for Your Visit: Seizure activity Attending Provider: Cece Bullard Primary Care Provider: Abundio Forrester Chi Instructions Additional Instructions / Restrictions: * Take 25mg (1 tablet) once daily for 2 weeks, then take 25mg (1 tablet) twice daily for 2 weeks, then take 50mg (2 tablets) twice daily until your follow up appointment with the Neurologist. * Continue to NOT drive. * Proceed with your scheduled Neurology appointment on May 21, 2021. Discharge Orders/Prescriptions Prescriptions: New lamotrigine 25 mg Tablet, Chewable Dispersible 25 mg PO DAILY Qty: 98 RF: 0 Continued aspirin 81 MG tablet,chewable 81 mg PO DAILY@0800 RF: 0 epinephrine 0.3 MG syringe 0.3 mg IM PRN PRN (Reason: Anaphylaxis) RF: 0 [id number]-thd-wisl fum-folic ac 1 EACH tablet 1 ea PO DAILY RF: 0 carvedilol 25 MG tablet 25 mg PO BID Qty: 60 RF: 0 doxepin 10 mg Capsule 10 mg PO DAILY PRN (Reason: MOOD) RF: 0 Trelegy Ellipta 200-62.5-25 mcg Blister With Device 1 inh INHALATION DAILY RF: 0 donepezil 10 mg tablet 10 mg PO DAILY RF: 0 atorvastatin 40 mg tablet 40 mg PO QHS Qty: 30 RF: 1 memantine 10 mg tablet 10 mg PO BID RF: 0 Referrals / Follow Up: Talib Manriquez MD [STAFF PHYSICIAN] - See Referral Note (Proceed with your scheduled appointment. ) Abundio Forrester Chi, MD [Primary Care Provider] - Within 2 Weeks Disposition Disposition (needs filled in before D/C Order can be placed): Home, Self Care Documented by User: Dr. Cece Bullard MD 04/17/21 15:08 Providers Date of Admission: 04/16/21 Reason For Visit: SEIZURES, PNA Medications at Discharge Home Medications aspirin 81 mg PO DAILY@0800 03/25/15 epinephrine 0.3 mg IM PRN PRN 03/25/15 gksjqmfk-uvh-igux fum-folic ac 1 ea PO DAILY 03/25/15 carvedilol 25 mg PO BID #60 tablet 03/27/15 Trelegy Ellipta 1 inh INHALATION DAILY 10/29/20 doxepin 10 mg PO DAILY PRN 10/29/20 donepezil 10 mg PO DAILY 03/06/21 atorvastatin 40 mg PO QHS #30 tab 03/07/21 memantine 10 mg PO BID 04/16/21 lamotrigine 25 mg PO DAILY #98 ea 04/17/21 ABG / Lab / Microbiology Data Result Diagrams: 04/17/21 05:16 04/17/21 05:16 Discharge Plan Admission Admit Date/Time: 04/16/21 17:33 Primary Reason for Your Visit: Seizure activity Attending Provider: Cece Bullard Primary Care Provider: Abundio Forrester Chi Instructions Additional Instructions / Restrictions: * Take 25mg (1 tablet) once daily for 2 weeks, then take 25mg (1 tablet) twice daily for 2 weeks, then take 50mg (2 tablets) twice daily until your follow up appointment with the Neurologist. * Continue to NOT drive. * Proceed with your scheduled Neurology appointment on May 21, 2021. Discharge Orders/Prescriptions Prescriptions: New lamotrigine 25 mg Tablet, Chewable Dispersible 25 mg PO DAILY Qty: 98 RF: 0 Continued aspirin 81 MG tablet,chewable 81 mg PO DAILY@0800 RF: 0 epinephrine 0.3 MG syringe 0.3 mg IM PRN PRN (Reason: Anaphylaxis) RF: 0 uhjjprub-mmh-ujmk fum-folic ac 1 EACH tablet 1 ea PO DAILY RF: 0 carvedilol 25 MG tablet 25 mg PO BID Qty: 60 RF: 0 doxepin 10 mg Capsule 10 mg PO DAILY PRN (Reason: MOOD) RF: 0 Trelegy Ellipta 200-62.5-25 mcg Blister With Device 1 inh INHALATION DAILY RF: 0 donepezil 10 mg tablet 10 mg PO DAILY RF: 0 atorvastatin 40 mg tablet 40 mg PO QHS Qty: 30 RF: 1 memantine 10 mg tablet 10 mg PO BID RF: 0 Referrals / Follow Up: Talib Manriquez MD [STAFF PHYSICIAN] - See Referral Note (Proceed with your scheduled appointment. ) Abundio Forrester Chi, MD [Primary Care Provider] - Within 2 Weeks Disposition Disposition (needs filled in before D/C Order can be placed): Home, Self Care Charges/Coding Addendum Addendum: Patient seen by Bronson Mensah PA-C under my supervision Patient is a 75-year-old male with a past medical history as outlined was admitted with a complaint of unresponsive episodes. found him unresponsive with some tonic-clonic jerking movements. He had previously been seen in the hospital in February for similar episodes and was worked up for seizure disorder. At that time, it was thought his symptoms were likely due to orthostatic hypotension and he was hydrated with IV fluids. Neurology had recom mended then that if the symptoms recurred, then patient should be started on lamotrigine. During this admission, CT of the brain done showed no acute intracranial process. He was admitted and managed for acute metabolic encephalopathy likely due to seizure disorder. He was started initially on Ke ppra. SOC neurology was consulted. Based on previous recommendations by neurology during previous admission about Keppra causing confusion, patient was switched to lamotrigine. Neurology reviewed patient and recommended continuation of lamotrigine recommended 25 mg daily for 2 weeks then to continue with 25 mg twice daily for another 2 weeks then titrate upwards to 50 mg daily. He is to follow-up with neurology on outpatient basis. Patient seen and examined prior to discharge. was by his bedside and hospitalist also discussed plan with [facility] neurology via video in the presence of the patient and his . Patient had no active complaint and wanted to be discharged home. Review of symptoms otherwise negative. Labs and vitals reviewed. Home medication reviewed and reconciled. O/E: Const alert and no apparent distress HEENT normocephalic, head/scalp atraumatic and hearing grossly normal bilaterally Eyes PERRL and conjunctivae normal Neck no lymphadenopathy, supple and no JVD Resp normal respiratory effort, no retractions and no use of accessory muscles Cardio regular rate, regular rhythm and no JVD GI normal to inspection, nondistended, normoactive bowel sounds and soft to palpation Extremity normal to inspection, full ROM and no clubbing, cyanosis or edema Skin no rashes or lesions noted, no wounds and skin turgor normal Neuro CN's II-XII intact bilaterally Psych affect normal Plan is for discharge home today as above. Rest as per Bronson Mensah PA-C's note, which I reviewed and endorsed. Total time I spent on patient's care and discharge planning today: 35 mins, with GIAN spending 20 mins, making a total of 55 mins Visit Charges OBSV E&M: 67401 Observation care discharge
[2021-04-18 13:24] LABS: MG Sendout 2.3 mg/dL (1.6-2.3)
== END 2021-04-17 12:32 | disposition home or self-care (01) | DRG 100 ==
LOC: ED 17:18 → PCU 17:22
PROVIDERS: Nurse Practitioner Family; Admitting Provider Internal Medicine; Emergency Provider Emergency Medicine; PCP Family Medicine Geriatric Medicine; Visit Provider Student in an Organized Health Care Education/Training Program
DX: G40.909 Epilepsy, unspecified, not intractable, without status epilepticus (principal); J18.9 Pneumonia, unspecified organism; J96.01 Acute respiratory failure with hypoxia; G93.41 Metabolic encephalopathy; J44.0 Chronic obstructive pulmonary disease with (acute) lower respiratory infection; F03.90 Unspecified dementia, unspecified severity, without behavioral disturbance, psychotic disturbance, mood disturbance, and anxiety; I10 Essential (primary) hypertension; E78.5 Hyperlipidemia, unspecified; R77.8 Other specified abnormalities of plasma proteins; Z87.891 Personal history of nicotine dependence; Z79.82 Long term (current) use of aspirin; Z86.73 Personal history of transient ischemic attack (TIA), and cerebral infarction without residual deficits
CPT/HCPCS: 36415; 70450; 71045; 71046; 80048; 83605; 83735; 84100; 84146; 84484; 85025; 85610; 85730; 87040; 87426; 93005; 94640; 97161; 97166; 99251; 99285; 99406; J7030; J7040; G0463; J0696

== ENCOUNTER 2021-06-07 12:05 | Outpatient (CLI) | payer MEDICARE, OTHER, SELFPAY ==
[2021-06-07 13:38] LABS: Absolute Lymphocyte Count 1.39 X10^3/uL (0.83-4.51); Absolute Neutrophil Count 5.3 X10^3/uL (2.0-7.7); Basophil# 0.03 X10^3/uL; Basophil% 0.4 % (0-1); Eosinophil# 0.07 X10^3/uL; Eosinophils% 0.9 % (0-5); Hematocrit 44.5 % (40-54); Hemoglobin 14.4 g/dL (13.0-16.5); Lymphocyte # 1.39 X10^3/ul (0.83-4.51); Mean Corp Hgb Conc 32.4 g/dL (32-36); Mean Corpuscular Hgb 28.3 pg (27.0-32.0); Mean Corpuscular Volume 87.6 fL (80-94); Mean Platelet Vol. 11.9 fl (6.2-12.0); Monocyte# 0.86 X10^3/uL; Monocyte% 11.1 % (0-10); NRBC Flagged by Analyzer 0 % (0-5); Neutrophil # 5.34 X10^3/uL (2.7-7.7); Platelet Count 161 K/mm3 (150-450); RBC Distribution Width CV 15.3 % (11.6-14.6); RBC Distribution Width SD 49.3 fl (35.1-43.9); Red Blood Count 5.08 M/mm3 (4.6-6.2); White Blood Count 7.7 K/mm3 (4.4-11.0)
[2021-06-07 14:11] LABS: Vitamin B12 346 pg/mL (211-911)
[2021-06-07 14:11] LABS: Vitamin D,25 Hydroxy 24.6 ng/mL
[2021-06-07 14:46] LABS: ALB/GLOB Ratio 0.9 RATIO (0.9-2.4); AST(SGOT) 17 U/L (15-37); Alanine Aminotransfer ALT/SGPT 26 U/L (16-61); Albumin, Serum 3.5 g/dL (3.2-5.0); Alkaline Phosphatase 158 U/L (45-117); Anion Gap 5 (5-15); BUN 14 mg/dL (7-18); BUN/Creat Ratio 13.2 RATIO (10-20); Calcium,Total 8.9 mg/dL (8.5-10.1); Chloride 102 mmol/L (98-107); Creatinine, Serum 1.06 mg/dL (0.70-1.30); EST Glomerular Filtration Rate 72 mL/min (>60); Est Glom Filt Rate - Afr Amer 87 mL/min (>60); Globulin 3.8 g/dL (2.2-4.2); Glucose 97 mg/dL (74-106); Protein, Total 7.3 g/dL (6.4-8.2); Sodium Level 138 mmol/L (136-145); Thyroid Stim Hormone (TSH) 1.27 uIU/mL (0.358-3.74)
[2021-06-19 15:32] LABS: Lamotrigine (Lamictal) Level 7.5 ug/mL (2.0-20.0)
== END 2021-06-07 23:59 | disposition home or self-care (01) ==
PROVIDERS: Psychiatry & Neurology Neurology; PCP Family Medicine Geriatric Medicine; Referring Provider Family Medicine Geriatric Medicine; Visit Provider Family Medicine Geriatric Medicine
DX: R53.83 Other fatigue (principal); E55.9 Vitamin D deficiency, unspecified
CPT/HCPCS: 36415; 80053; 82140; 82306; 82542; 82607; 82746; 84425; 84443; 85025

== ENCOUNTER 2021-06-09 11:11 | Outpatient (CLI) | payer MEDICARE, OTHER, SELFPAY | END 2021-06-09 23:59 | disposition home or self-care (01) | PROVIDERS: PCP Family Medicine Geriatric Medicine; Visit Provider Psychiatry & Neurology Neurology | DX: G40.909 Epilepsy, unspecified, not intractable, without status epilepticus (principal) | CPT/HCPCS: 95819 ==

== ENCOUNTER → 2021-12-06 | Outpatient (CLI) | payer MEDICARE, OTHER, SELFPAY ==
[2021-12-06 12:30] LABS: Absolute Lymphocyte Count 1.58 X10^3/uL (0.83-4.51); Basophil# 0.04 X10^3/uL; Basophil% 0.4 % (0-1); Eosinophil# 0.07 X10^3/uL; Eosinophils% 0.7 % (0-5); Hematocrit 46.3 % (40-54); Hemoglobin 15.2 g/dL (13.0-16.5); Lymphocyte # 1.58 X10^3/ul (0.83-4.51); Lymphocyte % 16.4 % (19-41); Mean Corp Hgb Conc 32.8 g/dL (32-36); Mean Corpuscular Hgb 28.8 pg (27.0-32.0); Mean Corpuscular Volume 87.7 fL (80-94); Mean Platelet Vol. 11.9 fl (6.2-12.0); Monocyte# 0.88 X10^3/uL; Monocyte% 9.1 % (0-10); NRBC Flagged by Analyzer 0 % (0-5); Neutrophil % 72.5 % (47-70); Platelet Count 166 K/mm3 (150-450); RBC Distribution Width CV 14.5 % (11.6-14.6); RBC Distribution Width SD 46.4 fl (35.1-43.9); Red Blood Count 5.28 M/mm3 (4.6-6.2); White Blood Count 9.7 K/mm3 (4.4-11.0)
[2021-12-06 12:44] LABS: Vitamin D,25 Hydroxy 25.1 ng/mL
[2021-12-06 13:04] LABS: ALB/GLOB Ratio 0.9 RATIO (0.9-2.4); AST(SGOT) 18 U/L (15-37); Alanine Aminotransfer ALT/SGPT 27 U/L (16-61); Albumin, Serum 3.3 g/dL (3.2-5.0); Alkaline Phosphatase 102 U/L (45-117); Anion Gap 6 (5-15); BUN 13 mg/dL (7-18); BUN/Creat Ratio 13.3 RATIO (10-20); Calcium,Total 9.1 mg/dL (8.5-10.1); Chloride 102 mmol/L (98-107); Creatinine, Serum 0.98 mg/dL (0.70-1.30); EST Glomerular Filtration Rate 79 mL/min (>60); Est Glom Filt Rate - Afr Amer 95 mL/min (>60); Globulin 3.8 g/dL (2.2-4.2); Glucose 97 mg/dL (74-106); Protein, Total 7.1 g/dL (6.4-8.2); Sodium Level 139 mmol/L (136-145); Thyroid Stim Hormone (TSH) 1.73 uIU/mL (0.358-3.74)
== END | disposition home or self-care (01) ==
LOC: POLAB3 09:42
PROVIDERS: PCP Family Medicine Geriatric Medicine; Visit Provider Family Medicine Geriatric Medicine
DX: I10 Essential (primary) hypertension (principal); E55.9 Vitamin D deficiency, unspecified
CPT/HCPCS: 36415; 80053; 82306; 84443; 85025

== ENCOUNTER → 2022-04-04 | Outpatient (CLI) | payer MEDICARE, OTHER, SELFPAY ==
[2022-04-08 20:57] LABS: Lamotrigine (Lamictal) Level 2.1 ug/mL (2.0-20.0)
== END | disposition home or self-care (01) ==
LOC: MTLAB 10:03
PROVIDERS: PCP Family Medicine Geriatric Medicine; Referring Provider Psychiatry & Neurology Neurology; Visit Provider Psychiatry & Neurology Neurology
DX: G40.909 Epilepsy, unspecified, not intractable, without status epilepticus (principal)
CPT/HCPCS: 36415; 82140; 82542

== ENCOUNTER → 2022-06-13 | Outpatient (CLI) | payer MEDICARE, OTHER, SELFPAY ==
[2022-06-13 12:15] LABS: Absolute Lymphocyte Count 1.41 X10^3/uL (0.83-4.51); Absolute Neutrophil Count 6.4 X10^3/uL (2.0-7.7); Basophil# 0.03 X10^3/uL; Basophil% 0.3 % (0-1); Eosinophil# 0.05 X10^3/uL; Eosinophils% 0.6 % (0-5); Hematocrit 44.4 % (40-54); Hemoglobin 14.6 g/dL (13.0-16.5); Lymphocyte # 1.41 X10^3/ul (0.83-4.51); Lymphocyte % 16.2 % (19-41); Mean Corp Hgb Conc 32.9 g/dL (32-36); Mean Corpuscular Hgb 28.7 pg (27.0-32.0); Mean Corpuscular Volume 87.4 fL (80-94); Mean Platelet Vol. 11.4 fl (6.2-12.0); Monocyte# 0.79 X10^3/uL; Monocyte% 9.1 % (0-10); NRBC Flagged by Analyzer 0 % (0-5); Neutrophil # 6.35 X10^3/uL (2.7-7.7); Platelet Count 167 K/mm3 (150-450); RBC Distribution Width CV 14.1 % (11.6-14.6); RBC Distribution Width SD 44.9 fl (35.1-43.9); Red Blood Count 5.08 M/mm3 (4.6-6.2); White Blood Count 8.7 K/mm3 (4.4-11.0)
[2022-06-13 12:28] LABS: Vitamin D,25 Hydroxy 29.6 ng/mL
[2022-06-13 13:00] LABS: ALB/GLOB Ratio 0.9 RATIO (0.9-2.4); AST(SGOT) 17 U/L (15-37); Alanine Aminotransfer ALT/SGPT 24 U/L (16-61); Albumin, Serum 3.4 g/dL (3.2-5.0); Alkaline Phosphatase 90 U/L (45-117); Anion Gap 3 (5-15); BUN 15 mg/dL (7-18); BUN/Creat Ratio 12.9 RATIO (10-20); Calcium,Total 9.2 mg/dL (8.5-10.1); Chloride 100 mmol/L (98-107); Creatinine, Serum 1.16 mg/dL (0.70-1.30); EST Glomerular Filtration Rate 65 mL/min (>60); Est Glom Filt Rate - Afr Amer 78 mL/min (>60); Globulin 3.7 g/dL (2.2-4.2); Glucose 98 mg/dL (74-106); Potassium 4.3 mmol/L (3.5-5.1); Protein, Total 7.1 g/dL (6.4-8.2); Sodium Level 135 mmol/L (136-145); Thyroid Stim Hormone (TSH) 1.89 uIU/mL (0.358-3.74)
== END | disposition home or self-care (01) ==
LOC: POLAB3 11:22
PROVIDERS: PCP Family Medicine Geriatric Medicine; Visit Provider Family Medicine Geriatric Medicine
DX: I10 Essential (primary) hypertension (principal); E55.9 Vitamin D deficiency, unspecified
CPT/HCPCS: 36415; 80053; 82306; 84443; 85025

== ENCOUNTER → 2022-07-12 | Outpatient (CLI) | payer MEDICARE, OTHER, SELFPAY ==
--- NOTE | 2022-07-12 12:59 | CDU_ITS ---
Reason For Study: Right carotid bruit Rt. Velocities/BP Lt. Velocities/BP Prox CCA 65.5/11.6 cm/sec. Prox CCA 90.5/17.9 cm/sec. Mid CCA 52.2/12.6 cm/sec. Mid CCA 83.9/17.9 cm/sec. Dist CCA 60.7/15.4 cm/sec. Dist CCA 65.2/13.5 cm/sec. Prox ICA 68.5/16.8 cm/sec. Prox ICA 41.9/7.8 cm/sec. Mid ICA 59.1/13.1 cm/sec. Mid ICA 58.8/19.3 cm/sec. Dist ICA 58.3/13.3 cm/sec. Dist ICA 65.9/18.2 cm/sec. Rt. ICA/CCA = 1.13. Lt. ICA/CCA = 0.79. Prox ECA 200.4/11.1 cm/sec. Prox ECA 132.1/7.9 cm/sec. Rt. Vert. 69.6/16.8 cm/sec. Lt. Vert. 35.8/8.8 cm/sec. Right Extracranial There is heterogeneous, irregular atherosclerotic plaque noted in the right common carotid artery. There is heterogeneous, irregular atherosclerotic plaque noted in the right internal carotid artery. There is heterogeneous, irregular atherosclerotic plaque noted in the right external carotid artery. Antegrade flow is noted in the right vertebral artery. Left Extracranial There is heterogeneous, irregular atherosclerotic plaque noted in the left common carotid artery. There is heterogeneous, irregular atherosclerotic plaque noted in the left internal carotid artery. There is heterogeneous, irregular atherosclerotic plaque noted in the left external carotid artery. Antegrade flow is noted in the left vertebral artery. Procedure Carotid Duplex [id number]. This is a Carotid Duplex examination using B-mode, color flow and specral Doppler. Exam performed in department. VL/Carotid Duplex Ultrasound Interpretation Summary Mild (<50%) stenosis right extracranial internal carotid. Some limitation due t o calcific shadowing. Mild (<50%) stenosis left extracranial internal carotid. Patent and antegrade vertebrals bilaterally. Ordering Physician: Talib Manriquez Referring Physician: Abundio Forrester Chi Performed By: Vangie San RVT
== END | disposition home or self-care (01) ==
LOC: CVS 12:59
PROVIDERS: PCP Family Medicine Geriatric Medicine; Referring Provider Psychiatry & Neurology Neurology; Visit Provider Psychiatry & Neurology Neurology
DX: R09.89 Other specified symptoms and signs involving the circulatory and respiratory systems (principal)
CPT/HCPCS: 93880

== ENCOUNTER 2022-08-18 07:08 | Emergency (ER) | payer MEDICARE, OTHER, SELFPAY ==
[2022-08-18 07:09] VITALS: BP 152/73; PULSE 74; RESP 16; TEMP 36.4; O2SAT 98; BMI 26.4
--- NOTE | 2022-08-18 07:21 | EDS_ITS ---
HPI History of Present Illness HPI Narrative: Awoke today with right shoulder discomfort. No history of injury or trauma. No fever, redness or swelling. He is right-hand dominant. No prior history or surgery to the right shoulder. Chief Complaint: Upper Extremity Injury Informant: patient and spouse/S.O. Occured/Mechanism Mechanism/Context: No injury and No blunt trauma Onset/Context/Timing Onset: Today Context: Gradual Onset Timing: Continuous Quality of Pain: Dull and Aching Current Severity: Mild Maximum Severity: Mild Narrative Narrative: 76-year-old male with history of COPD who woke this morning with stiffness and discomfort in his right shoulder. Denies any fall injury or trauma. No recent heavy lifting or anything that he can attribute the pain to. No fever redness or swelling. He has never had surgery to his right shoulder. He is right-hand dominant. States that it was fine yesterday. He denies any chest pain or shortness of breath. Prior similar symptoms: No Recent Illness/Hospitalization: No PFSH PFSH Medical History Alzheimer's dementia Asthma COPD (chronic obstructive pulmonary disease) COPD (chronic obstructive pulmonary disease) Elevated troponin Former smoker Hives Hx of cataract Hyperlipidemia Hypertension Hypertension, uncontrolled Hypertensive encephalopathy New onset seizure Nicotine dependence Seizure Sleep apnea TIA (transient ischemic attack) Home Medications aspirin 81 mg chewable tablet 81 mg PO DAILY@0800 03/25/15 [History Last Taken 04/15/21] epinephrine 0.3 mg/0.3 mL injection, auto-injector 0.3 mg IM PRN PRN Anaphylaxis 03/25/15 [History Last Taken Unknown] zceimrvoukbt-vumxjyci-xcdk fumarate 7.5 mg-folic acid 400 mcg tablet 1 ea PO DAILY 03/25/15 [History Last Taken 04/15/21] carvedilol 25 mg tablet 25 mg PO BID #60 TABLETS 03/27/15 [Rx Last Taken 04/15/21] doxepin 10 mg capsule 10 mg PO DAILY PRN MOOD 10/29/20 [History Last Taken Unknown] fluticasone fur. 200 mcg-umeclid 62.5 mcg-vilant 25 mcg inhalat.powder (Trelegy Ellipta) 1 inh inhalation DAILY 10/29/20 [History Last Taken 04/15/21] donepezil 10 mg tablet 10 mg PO DAILY 03/06/21 [History Last Taken 04/15/21] atorvastatin 40 mg tablet 40 mg PO QHS #30 tabs 03/07/21 [Rx Last Taken 04/15/21] memantine 10 mg tablet 10 mg PO BID MEMORY 04/16/21 [History Last Taken 04/15/21] lamotrigine 25 mg chewable dispersible tablet 50 mg PO BID #360 ea 07/11/22 [Rx Last Taken Unknown] ergocalciferol (vitamin D2) 1,250 mcg (50,000 unit) capsule (Vitamin D2) 1,250 mcg PO QWEEK #12 caps 07/19/22 [Rx Last Taken Unknown] Allergy/AdvReac Type Severity Reaction Status Date / Time venom-honey bee Allergy Anaphylaxis Verified 08/18/22 07:08 [bee venom (honey bee)] Family History Mother Heart disease Other High cholesterol Hypertension Surgical History No history of previous surgery Social History Smoking Status: Former smoker Tobacco: How many years used: 50 second hand exposure: No details: occasionally substance use type: does not use what type of physical activity do you participate in: none karlo/religious: [employer] seatbelt use: always ROS ROS ED ROS Narrative Patient denies recent illness. Review of Systems ROS Unobtainable: Denies due to encephalopathy Constitutional Constitutional ED: Denies chills or fever(s) Eyes Eyes: Denies blurry vision ENT ENT ED: Denies ear pain Cardiovascular Cardiovascular: Denies chest pain Respiratory/Chest Respiratory/Chest: Denies cough or dyspnea Gastrointestinal Gastrointestinal: Denies abdominal pain Genitourinary Genitourinary ED: Denies dysuria Musculoskeletal Musculoskeletal: Denies back pain Integumentary Denies abscess Neurologic Neurologic: Denies headache(s) Psychiatric Psychiatric: Denies anxiety Endocrine Endocrinology: Denies cold intolerance Hematologic/Lymphatic Hematologic/Lymphatic: Denies easy bleeding Allergic/Immunologic Allergic/Immunologic ED: Denies mouth swelling EXAM Physical Exam Narrative Exam Narrative: Well-appearing 76-year-old male accompanied by his . Sitting upright in the bed. Vital signs are stable afebrile. H EENT exam unremarkable. Neck nontender no lymphadenopathy. Lungs clear to auscultation. Heart regular rhythm rate about 70 no murmur. Chest wall nontender. Abdomen soft nontender. Right shoulder is nontender. He is complaining some mild discomfort. Its not red nor hot nor swollen. There is no cellulitis or signs of a septic joint. He is able to do internal and external rotation. He can lift it over his head but obviously having discomfort with lifting his arm. No deformity. It is nontender. He has full flexion extension of the elbow, forearm wrist and hand. Normal radial pulse. 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 Normal sensation. The appearance of the arm and shoulder looks normal. There is no swelling or deformity. No bruising. Const Vital Signs: 08/18/22 07:09 Temperature 97.6 F L Temperature Source Temporal Pulse Rate 74 Respiratory Rate 16 Blood Pressure 152/73 H Blood Pressure Mean 99 Pulse Ox 98 Oxygen Delivery Method Room Air Positive well nourished and well developed; Negative for cachectic, contractures or unkempt General Appearance ED: well developed and NAD; Negative for unkempt, cachectic, contractures, cyanotic or diaphoretic Nutritional Appearance: Negative for cachectic HEENT Reports moist mucous membranes normocephalic and atraumatic; Negative for trauma or tenderness Eyes PERRL and EOMs intact bilaterally General Eye ED: Negative for other Neck full ROM and supple General: Negative for tenderness Lymph Lymphatic: Negative for other Chest Wall inspection of chest normal and palpation of chest normal Chest: Negative for other Resp normal respiratory effort and clear to auscultation bilaterally Effort and Inspection: Negative for pain with movement Auscultation: Negative for rales, rhonchi or wheezes Cardio regular rate, regular rhythm, S1 normal heart sound, S2 normal heart sound and no murmurs GI non-tender, non-distended and no masses Inspection: Negative for abdominal distention Auscultation: normoactive bowel sounds Palpation: soft; Negative for tender or guarding Back/Spine no CVA tenderness General Back: Negative for CVA tenderness Cervical Spine: Negative for cervical spine tenderness Thoracic Spine / Upper Back: Negative for thoracic spinal tenderness Lumbar Spine / Lower Back: Negative for lumbar spinal tenderness Extremity normal to inspection and full ROM Extremity Narrative: Right shoulder appears normal. No redness or swelling. No bony deformity. Normal internal/external rotation. Normal AB and adduction. Weightless his arm over his head and appears stiff and sore but he is able to do it. No gross bony deformity. Right hand is neurovascular intact with normal strength, radial pulse and sensation. General Extremety ED: Negative for edema General Extremity: Negative for edema Neuro oriented x3, CN's II-XII intact bilaterally, moves all extremities, no focal motor deficits and no sensory deficits noted Sensorium / Orientation: alert, oriented to person, oriented to place and oriented to time; Negative for orientation impaired, lethargic or stuporous Motor Exam: strength 5/5 throughout Psych mental status grossly normal Appearance: Negative for unkempt Attitude: No agitated Mood & Affect: Negative for depressed, anxious or tearful Skin General Skin Exam: Negative for petechiae Lesions: no lesions Rashes: no rashes Trauma: no lacerations or abrasions; Negative for abrasion or laceration MDM MDM MDM Narrative Medical decision making narrative: 76-year-old male [id number] awoke this morning with stiff sore right shoulder with no history of trauma. He has normal range of motion. Normal appearance. X-rays will be obtained. He did take some ibuprofen at home. Went over the x-ray results with the patient. X-rays chronic changes no arthritis. No acute process. I think his right shoulder pain is from acute arthritis inflammation. Ice. Anti-inflammatories if not improving we discussed the option of the shoulder joint injection if this is not getting better. Currently there is no signs of infection if he develops fever or redness he needs to return or have immediately evaluated. Patient and are comfortable with the plan and discharge. History & Record Review Discussion w/independent historian: Patient and Family Radiography Diagnostic Testing: Right shoulder x-ray, interpreted by myself shows chronic changes. No acute process. Arthritis. No fracture or dislocation. Interpreted by myself. 2 views. Discharge Plan Triage Chief Complaint: Upper Extremity Injury ED Provider: Chance Dowell Dx/Rx/DC Orders Clinical Impression: Acute pain of right shoulder, Acute arthritis, History of COPD Instructions: ED Osteoarthritis Prescriptions: No Action lamotrigine 25 mg tablet, chewable dispersible 50 mg PO BID Qty: 360 1RF aspirin 81 MG tablet,chewable 81 mg PO DAILY@0800 Label Comments: heart health epinephrine 0.3 MG syringe 0.3 mg IM PRN PRN (Reason: Anaphylaxis) Label Comments: allergies gbbckpyw-auc-pesz fum-folic ac 1 EACH tablet 1 ea PO DAILY Label Comments: supplement carvedilol 25 MG tablet 25 mg PO BID Qty: 60 0RF Label Comments: blood pressure doxepin 10 mg Capsule 10 mg PO DAILY PRN (Reason: MOOD) Trelegy Ellipta 200-62.5-25 mcg Blister With Device 1 inh INHALATION DAILY donepezil 10 mg tablet 10 mg PO DAILY atorvastatin 40 mg tablet 40 mg PO QHS Qty: 30 1RF memantine 10 mg tablet 10 mg PO BID ergocalciferol (vitamin D2) [Vitamin D2] 1,250 mcg (50,000 unit) capsule 1,250 mcg PO QWEEK Qty: 12 2RF Primary Care Provider: Abundio Forrester Chi Referrals: Abundio Forrester Chi, MD [Primary Care Provider] - 1 Week if not improving Activity Restrictions/Additional Instructions: The pain in her shoulder appears to be secondary to arthritis and inflammation. Ice to your shoulder to decrease pain and swelling 3-5 times a day for 30 minutes per time. Motrin for pain and inflammation and Tylenol for pain. Follow-up with your doctor if not improving if is not getting better we may consider a shoulder joint injection with steroids and numbing medication. If you develop any signs of fever or redness of the shoulder needs to be reevaluated to make sure is not infected. There are no signs of that at this time. Disposition Disposition: Home, Self Care
--- NOTE | 2022-08-18 07:27 | RAD_ITS ---
INDICATION: Atraumatic right shoulder pain EXAMINATION/TECHNIQUE: X-RAY - RIGHT XR Shoulder Min 2 Views 2 VIEWS COMPARISON: FINDINGS: BONES: No fracture demonstrated. Degenerative changes at the glenohumeral and acromioclavicular joints. JOINTS: No dislocation. SOFT TISSUES: Unremarkable. RAD/Shoulder min 2 Views IMPRESSION: No evidence of fracture. Degenerative changes. Electronically Signed: Chel Alvarez MD at 7:49 EDT ,
== END 2022-08-18 08:16 | disposition home or self-care (01) ==
PROVIDERS: Emergency Provider Emergency Medicine; PCP Family Medicine Geriatric Medicine; Visit Provider Emergency Medicine
DX: M19.011 Primary osteoarthritis, right shoulder (principal); J44.9 Chronic obstructive pulmonary disease, unspecified; Z87.891 Personal history of nicotine dependence; E78.5 Hyperlipidemia, unspecified; I10 Essential (primary) hypertension
CPT/HCPCS: 73030; 99282

== ENCOUNTER → 2022-11-21 | Outpatient (CLI) | payer MEDICARE, OTHER, SELFPAY ==
--- NOTE | 2022-11-21 15:40 | RAD_ITS ---
STUDY: X-RAY - UNILATERAL RIBS ( RIGHT ) WITH CHEST REASON FOR EXAM: Male, 77 years old. RIB PAIN TECHNIQUE - RIBS: 4 view(s) of the ribs. TECHNIQUE - CHEST: Single AP portable view of the chest. COMPARISON: 04/17/2021. FINDINGS - RIBS: Normal visualized ribs without a demonstrated fracture. FINDINGS - CHEST: There is hyperinflation of the lungs consistent with chronic obstructive lung disease (COPD). Stable scarring in both lung bases. No infiltrates. No definite effusions. Normal size heart. Normal mediastinum and caryn. There is prominence of the pulmonary hilar arteries without peripheral pulmonary vascular congestion, suggesting pulmonary hypertension. Normal visualized aortic arch and descending thoracic aorta. There are diffuse degenerative changes of the visualized thoracic spine. There is degenerative osteoarthritis of the bilateral shoulders. There is no demonstrated abnormality of the visualized soft tissue structures of the upper abdomen. RAD/Ribs Uni Min 3V w/PA Chest IMPRESSION: RIBS: Normal x-ray examination of the ribs. CHEST: There are findings consistent with COPD. There is no evidence of acute chest disease. No change or acute abnormality. Electronically Signed: Mario Hudson MD at 19:16 EDT ,
== END | disposition home or self-care (01) ==
LOC: RAD 15:34
PROVIDERS: PCP Family Medicine Geriatric Medicine; Referring Provider Family Medicine Geriatric Medicine; Visit Provider Family Medicine Geriatric Medicine
DX: R07.81 Pleurodynia (principal)
CPT/HCPCS: 71101

== ENCOUNTER → 2022-12-04 | Outpatient (CLI) | payer MEDICARE, OTHER, SELFPAY ==
[2022-12-04 11:24] LABS: Absolute Lymphocyte Count 1.83 X10^3/uL (0.83-4.51); Absolute Neutrophil Count 12.6 X10^3/uL (2.0-7.7); Basophil# 0.05 X10^3/uL; Basophil% 0.3 % (0-1); Eosinophil# 0.07 X10^3/uL; Eosinophils% 0.4 % (0-5); Hematocrit 43.7 % (40-54); Lymphocyte # 1.83 X10^3/ul (0.83-4.51); Lymphocyte % 11.1 % (19-41); Mean Corpuscular Volume 87.4 fL (80-94); Mean Platelet Vol. 10.9 fl (6.2-12.0); Monocyte# 1.45 X10^3/uL; Monocyte% 8.8 % (0-10); NRBC Flagged by Analyzer 0 % (0-5); Neutrophil # 12.64 X10^3/uL (2.7-7.7); Neutrophil % 76.9 % (47-70); Platelet Count 173 K/mm3 (150-450); RBC Distribution Width CV 15.6 % (11.6-14.6); RBC Distribution Width SD 49.5 fl (35.1-43.9); White Blood Count 16.5 K/mm3 (4.4-11.0)
[2022-12-04 13:01] LABS: Vitamin D,25 Hydroxy 56.4 ng/mL
[2022-12-04 13:24] LABS: ALB/GLOB Ratio 0.8 RATIO (0.9-2.4); AST(SGOT) 14 U/L (15-37); Alanine Aminotransfer ALT/SGPT 24 U/L (16-61); Albumin, Serum 2.9 g/dL (3.2-5.0); Alkaline Phosphatase 100 U/L (45-117); Anion Gap 4 (5-15); BUN 13 mg/dL (7-18); Calcium,Total 8.6 mg/dL (8.5-10.1); Chloride 101 mmol/L (98-107); EST Glomerular Filtration Rate 77 mL/min (>60); Est Glom Filt Rate - Afr Amer 93 mL/min (>60); Globulin 3.7 g/dL (2.2-4.2); Glucose 78 mg/dL (74-106); Potassium 4.2 mmol/L (3.5-5.1); Protein, Total 6.6 g/dL (6.4-8.2); Sodium Level 135 mmol/L (136-145); Thyroid Stim Hormone (TSH) 1.17 uIU/mL (0.358-3.74)
== END | disposition home or self-care (01) ==
LOC: POLAB3 10:56
PROVIDERS: PCP Family Medicine Geriatric Medicine; Visit Provider Family Medicine Geriatric Medicine
DX: I10 Essential (primary) hypertension (principal); E55.9 Vitamin D deficiency, unspecified
CPT/HCPCS: 36415; 80053; 82306; 84443; 85025

== ENCOUNTER → 2023-03-19 | Outpatient (CLI) | payer MEDICARE, OTHER, SELFPAY ==
--- NOTE | 2023-03-19 11:45 | CT_ITS ---
STUDY: CTA CHEST REASON FOR EXAM: Male, 77 years old. SOB RADIATION DOSAGE (If Supplied By Facility): CTDIvol = ( 12.21 ) mGy, DLP = ( 589.47 ) mGycm TECHNIQUE: The examination was performed with the intravenous administration of IV 100mL [id number]-[id number]. Post-processing of the angiographic images was performed, with multiplanar reformation and 3D reconstruction. Individualized dose optimization techniques were used for this CT. COMPARISON: Noncontrast CT scan of the chest of 06/09/2020. FINDINGS: Normal enhancement of the main pulmonary artery and right and left pulmonary arteries. Normal enhancement of the bilateral peripheral pulmonary arteries. There is no demonstrated pulmonary embolism. There is atherosclerotic calcification of the aortic arch with tortuosity of the descending thoracic aorta. There is no evidence of aortic dissection. Normal heart and pericardium. There are calcifications of the coronary arteries. No evidence of mediastinal adenopathy. Normal hilar regions. Normal visualized trachea and bronchi. There are no pulmonary infiltrates. Atelectatic changes or scarring in the right middle lobe. Right apical pleural fibrotic changes. There are no pleural effusions. Normal chest wall structures. There are degenerative changes of thoracic spine. Normal visualized upper abdomen. CT/CTA Chest W/WO Contrast IMPRESSION: 1. No evidence of pulmonary embolism or aortic dissection. 2. No acute pulmonary infiltrate or pleural effusions. Electronically Signed: Rojelio Townsend MD at 12:13 EST ,
--- OUTSIDE RECORDS SUMMARY | 2023-03-19 12:01 | XMS RPT_ITS | CCD ---
Author Name Unknown Address [address] [place] [address] Organization [facility] Results Test Name Value Interpretation Reference Range Facil ity Progress note 07-27-2020 Note Date & Type Note Facility 07-27-2020 Note HNO ID: [id number] Author: Agnes eDan LPN Service: ? Author Type: ? Type: Progress Notes Filed: 07/27/2020 8:15 PM Note Text: FOLLOW UP VISIT - SKIN LESION NAME: Rodrigo Hare CLINIC NO.: [id number] DATE OF SERVICE: 07/27/2020 : 1945 REFERRING PHYSICIAN: Petra Echeverria MD Rodrigo is a patient I am following for a history of skin tags on his neck and wartlike lesions on his scalp. I performed excision of 1 of these lesions and sent this for pathology in the past which returned as a verrucous vulgaris. Since then I performed multiple excision and fulgurations of similar scalp lesions Rodrigo returns today for the procedure. Rodrigo has not taken aspirin or aspirin products for the past 7 days. VITALS: Blood pressure 134/78, pulse 76, temperature 36.3 ?C (97.3 ?F), height 175.3 cm (5' 9 ), weight 107.6 kg (237 lb 3.2 oz), SpO2 95 %. On examination, he has multiple verrucous type lesions on his scalp posterior to his ears and about 6-10 skin tags on his neck PROCEDURE: FULGURATION OF SKIN LESION - scalp ? The risks, benefits and anticipated outcomes of the procedure, the risks and benefits of the alternatives to the procedure, and the roles and tasks of the personnel to be involved, were discussed with the patient, and the patient consents to the procedure and agrees to proceed. ? I verify that I personally obtained the patient's consent. ? The patient`s skin was prepped and draped in the usual fashion. A combination of Lidocaine and Marcaine was injected into the skin. The site was fulgurated with electrocautery. The patient tolerated the procedure well. ? PROCEDURE: EXCISION OF SKIN TAGS ? The risks, benefits and anticipated outcomes of the procedure, the risks and benefits of the alternatives to the procedure, and the roles and tasks of the personnel to be involved, were discussed with the patient, and the patient consents to the procedure and agrees to proceed. ? I verify that I personally obtained the patient's consent. ? The patient`s skin was prepped and draped in the usual fashion. A combination of Lidocaine and Marcaine was injected into the skin. Tags were removed via excision/fulgration. A total of 8 skin tags were removed. These were not sent to pathology. The patient tolerated the procedure well. ? Assessment IMPRESSION: STATUS POST EXCISION AND FULGRATION OF SKIN TAGS - SCALP WART ? PLAN: d. If there is minor bleeding from this skin edge, the patient should hold pressure on the incision. If there is continued bleeding, the patient should contact our office immediately. The patient may may wash the wound with gentle soap and water after two days. The wound should not be immersed in a pool, bathtub, or even hot tub. ? Diagnoses: (B07.8) Other viral warts (primary encounter diagnosis) (L91.8) Skin tags, multiple acquired ? Return to Clinic: The patient is instructed to follow-up with me as needed. ? Jorge Boudreaux MD UNIVERSAL PROTOCOL / SAFETY CHECKLIST Procedure to be performed: Excisional and fuluration of scalp Nodules Sign in Communication: Completed Time Out: Team Confirms the Correct Patient, Correct Procedure, Correct Site and Site Marking, Correct Position (if applicable), Prep and Dry Time (if applicable). Time: 10:46 Affirmation of Time Out: YES Sign Out Discussion: Completed Agnes Dean LPN [facility] Clinical Note 05-02-2020 Note Date & Type Note Facility 05-02-2020 Note Patient Outreach ([facility]) HARERODRIGO FLORES ([id number]) 1945 M Date Time Provider Department 05/02/20 WEATHERS, BERNARDINO MEYER During your visit today, we recorded the following information about you: Allergies As of Date: 05/02/2020 Noted Allergy Reaction BEES 12/11/2004 7 - Swelling Date Reviewed: 04/27/2020 Reviewed by: Danielle Mccray Ma - Fully Assessed Order(s):SARS-COVID VACCINE 1ST DOSE APPT [[id number]] Order #: [id number] FUTURE Prescriptions as of 05/02/2020 Sig: HYDROCHLOROTHIAZIDE 25 MG TAB* TAKE 1 TABLET DAILY NEEDED* CARVEDILOL 25 MG TABLET Take 1 tablet by mouth twice * PRAVASTATIN 40 MG TABLET Take 1 tablet by mouth daily * AMLODIPINE 2.5 MG TABLET Take 1-2 tablets by mouth onc* CPAP fax to [facility] ATTN; c* Patient not taking: Reported on 04/27/2020 NAPROXEN 500 MG TABLET Take 500 mg by mouth as neede* DONEPEZIL 10 MG TABLET Take 1 tablet by mouth once d* HYDRALAZINE 10 MG TABLET Take 1 tablet by mouth three * EZETIMIBE 10 MG TABLET Take 1 tablet by mouth once d* EPINEPHRINE 0.3 MG/0.3 ML INJ* Inject 0.3 mL intramuscularly* ASPIRIN 81 MG TABLET Take one (1) tablet daily . CENTRUM SILVER TABLET Take one(1) tablet daily. Problem List As Of Date 05/02/2020 Noted Resolved Essential hypertension [I10] 12/12/2004 Tobacco use disorder [F17.200] 02/11/2008 06/21/2015 MIXED HYPERLIPIDEMIA [E78.2] 09/22/2008 Trochanteric Bursitis [M70.60] 05/31/2009 More... Impaired Fasting Glucose [R73.01] 12/05/2009 Retinal vein occlusion, branch [H34.8392] 11/09/2010 More... Lipoma of face,right forehead [D17.0] 11/04/2012 More... Obesity [E66.9] Neurodegenerative dementia without behavioral d*10/14/2019 More... JOJO (obstructive sleep apnea) [G47.33] 11/19/2019 More... Encounter Status:Closed by EPIC, PRODUSER on 05/05/20 [facility] Progress note 04-28-2020 Note Date & Type Note Facility 04-28-2020 Note HNO ID: [id number] Author: Nathalia Quiroga (Wildland Firefighter) [place] Service: ? Author Type: Nurse Specialist Type: Progress Notes Filed: 04/28/2020 1:49 PM Note Text: VIRTUAL VISIT PROGRESS NOTE This is a virtual visit using converted to phone call . It required patient-provider interaction for the medical decision making as documented below. Rodrigo Hare is a 74 year old male seen for dementia accompanied by Nelly last visit 12/10/2019 increased Aricept to 10mg after last visit , well tolerated, no appetite or bowel changes. sees some improvement in ST memory, more active in games on the computer. Pt maintains function, working in garage and around the house - needs to remind him to shower, she manages finances and medication, pt has not driven 3 in months- has not left the house due to winter and pandemic started treatment for OSApatient does not like CPAP - gets very anxious with it on- 10- 15 min - tried it about 100 times - can't sleep had to return equipment due to insurance-had one episodes awoke from sleep gasping per Patient's Medications, and Past, Family and Social history have been reviewed with the patient, and updated as appropriate. Please see relevant sections in [facility] EHR for details Review of systems: Weight change: gained a few pounds Appetite: good Constipation, Diarrhea: no Urinary leakage: no stress/urgency Nocturia: 2 per night Chest pain, PND, orthopnea: no Edema: no Dyspnea: no Memory problems: yes Mood disorder: no Skin problems: no Falls since last visit: no Injuries/accidents since last visit: no ED/Hospitalizations since last visit: no History of Abuse/neglect/exploitation: no HISTORY REVIEWED (electronic chart updated): PAST MEDICAL HISTORY Diagnosis Date - Mixed hyperlipidemia 09/22/2008 - Obesity - Tobacco use disorder--history of Quit smoking - Unspecified essential hypertension PAST SURGICAL HISTORY Procedure Laterality Date - CATARACT SURGERY, COMPLEX Bilateral - COLONOSCOP W/ OR W/O [facility] SPEC 07/20/08 - PAST SURGICAL HISTORY OF right wrist after fracture - PAST SURGICAL HISTORY OF 2015 excision of skin lesions neck and under eye - REMOVAL OF TONSILS,<12 Y/O Tonsillectomy FAMILY HISTORY Problem Relation Age of Onset - Heart Father 60 smoker; from heart problem - Diabetes Mother - Heart Brother leaky valve - Diabetes Brother Social History Tobacco Use - Smoking status: Former Smoker Packs/day: 2.00 Years: 50.00 Pack years: 100.00 Types: Cigarettes Quit date: 03/25/2015 Years since quittin.0 - Smokeless tobacco: Never Used Substance Use Topics - Alcohol use: Yes Comment: couple beers per day - Drug use: No Current Outpatient Medications Medication Sig - hydroCHLOROthiazide (HYDRODIURIL, ESIDRIX) 25 mg tablet TAKE 1 TABLET DAILY NEEDED FOR SWELLING IN LEGS - carvedilol (COREG) 25 mg tablet Take 1 tablet by mouth twice daily with meals. - pravastatin (PRAVACHOL) 40 mg tablet Take 1 tablet by mouth daily at bedtime. - amLODIPine (NORVASC) 2.5 mg tablet Take 1-2 tablets by mouth once daily. As directed - naproxen (NAPROSYN) 500 mg tablet Take 500 mg by mouth as needed for Pain. - donepezil (ARICEPT) 10 mg tablet Take 1 tablet by mouth once daily. - hydrALAZINE (APRESOLINE) 10 mg tablet Take 1 tablet by mouth three times daily. - ezetimibe (ZETIA) 10 mg tablet Take 1 tablet by mouth once daily. - EPINEPHrine (EPIPEN) 0.3 mg/0.3 mL auto-injector Inject 0.3 mL intramuscularly. use as directed for bee sting - ASPIRIN 81 MG TAB Take one (1) tablet daily . - CENTRUM SILVER TAB Take one(1) tablet daily. - CPAP fax to [facility] ARVIND RUIZN; zachary at [phone] (Patient not taking: Reported on 04/27/2020 ) No current facility-administered medications for this visit. 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 No agitation or hallucinations. will continue aricept encouraged lifestyle interventions , exercise, mental and social interaction. Needs cognitive testing at next vist (G47.33) JOJO (obstructive sleep apnea) did not tolerate initiation of CPAP , pt not interested in sleep apnea clinic visit. Encouraged to contact DME provider and try an alternative type of mask. f/u 6 months in person in [place] It was necessary to convert the virtual visit to a telephone encounter due to technical difficulties. 16 min Nathalia Graham, INVENTORY CONTROL ASSOCIATE.FRIT MIXER INVENTORY CONTROL ASSOCIATE.MEDICAL EDITOR [facility] Summary Purpose Family History No Family History Records FoundNo Family History Records FoundNo Family History Records Found Advance Directives No Advanced Directives Records FoundNo Advanced Directives Records FoundNo Advanced Directives Records Found Additional Source Comments (unrecognized sect ion and content) No Status Records FoundNo Status Records FoundNo Status Records Found INFORMATION SOURCE (unrecogn ized section and content) DATE CREATED AUTHOR AUTHOR'S ORGANIZ ATION 11/13/2019 [facility] DATE CREATED AUTHOR AUTHOR'S ORGANIZ ATION 04/20/2021 [facility] FOR RECORDS PERTAINING TO PATIENTS WHO ARE OR HAVE BEEN ENROLLED IN A CHEMICAL DEPENDENCY/SUBSTANCEABUSE PROGRAM, SOME INFORMATION MAY BE OMITTED. This clinical summary was aggregated from multiple sources. Caution should be exercised in using it in the provision of clinical care. This summary normalizes information from multiple sources, and as a consequence, information in this document may materially change the coding, format and clinical context of patient data. In addition, data may be omitted in some cases. CLINICAL DECISIONS SHOULD BE BASED ON THE PRIMARY CLINICAL RECORDS. [employer] provides no warranty or guarantee of the accuracy or completeness of information in this document.
[2023-03-19 12:03] LABS: EGFR FINGERSTICK > 60.0000 mL/min (>60)
== END | disposition home or self-care (01) ==
LOC: CT 11:33
PROVIDERS: PCP Family Medicine Geriatric Medicine; Referring Provider Family Medicine Geriatric Medicine; Visit Provider Family Medicine Geriatric Medicine
DX: R06.02 Shortness of breath (principal)
CPT/HCPCS: 71275; Q9967

== ENCOUNTER → 2023-03-20 | Outpatient (CLI) | payer MEDICARE, OTHER, SELFPAY | END | disposition home or self-care (01) | LOC: PSN 09:02 | PROVIDERS: PCP Family Medicine Geriatric Medicine; Referring Provider Family Medicine Geriatric Medicine; Visit Provider Family Medicine Geriatric Medicine | DX: R68.83 Chills (without fever) (principal) | CPT/HCPCS: 87631 ==

== ENCOUNTER → 2023-06-17 | Outpatient (CLI) | payer MEDICARE, OTHER, SELFPAY ==
[2023-06-17 11:16] LABS: Absolute Lymphocyte Count 1.64 X10^3/uL (0.83-4.51); Absolute Neutrophil Count 8.2 X10^3/uL (2.0-7.7); Basophil# 0.04 X10^3/uL; Basophil% 0.4 % (0-1); Eosinophil# 0.06 X10^3/uL; Eosinophils% 0.5 % (0-5); Hematocrit 43.5 % (40-54); Lymphocyte # 1.64 X10^3/ul (0.83-4.51); Lymphocyte % 14.6 % (19-41); Mean Corp Hgb Conc 32.2 g/dL (32-36); Mean Corpuscular Hgb 28.5 pg (27.0-32.0); Mean Corpuscular Volume 88.6 fL (80-94); Mean Platelet Vol. 10.8 fl (6.2-12.0); Monocyte# 1.04 X10^3/uL; Monocyte% 9.3 % (0-10); NRBC Flagged by Analyzer 0 % (0-5); Neutrophil % 73.2 % (47-70); Platelet Count 185 K/mm3 (150-450); RBC Distribution Width CV 14.9 % (11.6-14.6); RBC Distribution Width SD 48.3 fl (35.1-43.9); Red Blood Count 4.91 M/mm3 (4.6-6.2); White Blood Count 11.2 K/mm3 (4.4-11.0)
[2023-06-17 15:02] LABS: AST(SGOT) 17 U/L (15-37); Alanine Aminotransfer ALT/SGPT 21 U/L (16-61); Albumin, Serum 3.3 g/dL (3.2-5.0); Alkaline Phosphatase 91 U/L (45-117); Anion Gap 6 (5-15); BUN 11 mg/dL (7-18); BUN/Creat Ratio 11.2 RATIO (10-20); Chloride 101 mmol/L (98-107); Creatinine, Serum 0.98 mg/dL (0.70-1.30); EST Glomerular Filtration Rate 78 mL/min (>60); Est Glom Filt Rate - Afr Amer 95 mL/min (>60); Globulin 3.4 g/dL (2.2-4.2); Glucose 95 mg/dL (74-106); Potassium 4.2 mmol/L (3.5-5.1); Protein, Total 6.7 g/dL (6.4-8.2); Sodium Level 135 mmol/L (136-145); Thyroid Stim Hormone (TSH) 1.36 uIU/mL (0.358-3.74)
== END | disposition home or self-care (01) ==
LOC: LAB 10:59
PROVIDERS: PCP Family Medicine Geriatric Medicine; Referring Provider Family Medicine Geriatric Medicine; Visit Provider Family Medicine Geriatric Medicine
DX: I10 Essential (primary) hypertension (principal); E55.9 Vitamin D deficiency, unspecified
CPT/HCPCS: 36415; 80053; 82306; 84443; 85025

== ENCOUNTER → 2023-06-21 | Outpatient (CLI) | payer MEDICARE, OTHER, SELFPAY ==
--- NOTE | 2023-06-21 09:07 | MRI_ITS ---
STUDY: MRI BRAIN WITHOUT CONTRAST REASON FOR EXAM: Male, 77 years old. ALZHEIMERS TECHNIQUE: Standardized multiplanar fat and water weighted pulse sequences were obtained. COMPARISON: MRI of the brain dated March 06, 2021 FINDINGS: Normal size of the ventricles and extra-axial spaces for the patient''s age. There are a limited number of small white matter hyperintensities, distributed throughout the deep white matter tracts of the cerebral hemispheres, consistent with mild chronic white matter ischemic changes. There is no evidence for recent intracranial ischemia or other cause of cytotoxic edema on diffusion weighted imaging (DWI). Normal T2* images of the brain without demonstrated susceptibility artifact. There is no demonstrated hemosiderin stain. No hydrocephalus or midline shift is present. No focal parenchymal edema is seen. Normal bilateral basal ganglia. Normal thalami. There is no extra-axial fluid accumulation. Normal flow voids within the major intracranial circulation suggesting patency by spin echo criteria. Normal sella turcica, pituitary gland, infundibular stalk, optic chiasm and hypothalamus. Normal tectal plate and pineal gland. Normal midbrain, johanna and medulla. Normal cerebellum. Normal basal cisterns. Normal bilateral temporal bones. Normal bilateral internal auditory canals. No demonstrated orbital abnormality, within the constraints of a routine brain study. Normal visualized paranasal sinuses. Normal calvarium and skull base. Normal visualized soft tissue structures. Normal visualized upper cervical spine. MRI/Brain without Contrast IMPRESSION: Mild chronic ischemic changes of the brain, as described above. Electronically Signed: Wood Alvares MD at 12:37 EDT ,
== END | disposition home or self-care (01) ==
LOC: MRI 08:52
PROVIDERS: PCP Family Medicine Geriatric Medicine; Referring Provider Family Medicine Geriatric Medicine; Visit Provider Family Medicine Geriatric Medicine
DX: G30.9 Alzheimer's disease, unspecified (principal)
CPT/HCPCS: 70551